=== PATIENT | female | born 1940 | race Caucasian/White ===

== ENCOUNTER 2017-01-30 11:05 | Inpatient (IN) | payer MEDICARE, OTHER ==
--- NOTE | 2017-01-30 11:13 | ED ---
Lower Extremity - History of Current Complaint Stated Complaint: FALL, RIGHT HIP FX - Allergies/Home Medications Allergies/Adverse Reactions: Allergies Allergy/AdvReac Type Severity Reaction Status Date / Time Aspirin Allergy Unknown Verified 01/30/17 11:19 Reaction Details Morphine Allergy Unknown Verified 01/30/17 11:19 Reaction Details Iodine AdvReac Unknown Verified 01/30/17 14:36 Reaction Details IVP AdvReac Unknown Uncoded 01/30/17 14:36 Reaction Details Home Medications: Home Medications Acetaminophen TAB* [Tylenol TAB*] 650 mg PO Q4H PRN 01/30/17 [History Confirmed 01/30/17] Carbidopa/Levodop 25/100 MG(*) [Sinemet 25/100 TAB(*)] 1 tab PO 0700,1300,199901/30/17 [History Confirmed 01/30/17] Cyanocobalamin TAB* [Vitamin B12 TAB*] 1,000 mcg PO DAILY 01/30/17 [History Confirmed 01/30/17] Fluticasone-Salmeterol 100-50* [Advair Diskus 100-50*] 1 puff INH BID 01/30/17 [ History Confirmed 01/30/17] Folic Acid TAB* [Folvite TAB*] 1 mg PO DAILY 01/30/17 [History Confirmed ] Furosemide TAB* [Lasix TAB*] 40 mg PO DAILY 01/30/17 [History Confirmed 01/30/17 ] Glycerin ADULT SUPP* 1 supp OR .SEE INSTRUCTIONS PRN 01/30/17 [History Confirmed 01/30/17] HYDROcodone/ACETAMIN 5-325 MG* [Henning 5-325 TAB*] 1 tab PO Q6H PRN 01/30/17 [ History Confirmed 01/30/17] Ipratropium HFA INHALER(NF) [Atrovent Hfa Inhaler(NF)] 2 puff INH 0700,1300, 199901/30/17 [History Confirmed 01/30/17] LORazepam TAB(*) [Ativan 0.5 MG TAB (*)] 0.5 mg PO Q8H PRN 01/30/17 [History Confirmed 01/30/17] Losartan TAB* [Cozaar TAB*] 25 mg PO DAILY 01/30/17 [History Confirmed 01/30/17] Magnesium Hydroxide LIQ* [Milk of Magnesia LIQ*] 30 ml PO BEDTIME PRN 01/30/17 [ History Confirmed 01/30/17] Melatonin 5 mg PO BEDTIME 01/30/17 [History Confirmed 01/30/17] Mirtazapine TAB* [Remeron TAB*] 7.5 mg PO BEDTIME 01/30/17 [History Confirmed ] Montelukast Sodium TAB* [Singulair TAB*] 10 mg PO BEDTIME 01/30/17 [History Confirmed 01/30/17] Multivitamins/Minerals TAB* [Thera M Plus TAB*] 1 tab PO DAILY 01/30/17 [ History Confirmed 01/30/17] Phenol-Glycerin [Chloraseptic Max Sore Thr] 2 spr PO Q4H PRN 01/30/17 [History Confirmed 01/30/17] Polyethylene Glycol 3350* [Miralax*] 17 gm PO DAILY 01/30/17 [History Confirmed 01/30/17] Pyridoxine HCl [Vitamin B-6] 25 mg PO DAILY 01/30/17 [History Confirmed 01/30/17 ] Senna TAB* [Senokot TAB*] 2 tab PO DAILY PRN 01/30/17 [History Confirmed ] Sertraline* [Zoloft*] 100 mg PO BID 01/30/17 [History Confirmed 01/30/17] Vitamin D CAP* [Drisdol CAP*] 50,000 units PO WEEKLY 01/30/17 [History Confirmed 01/30/17] cloNIDine TAB* [Catapres 0.1 MG TAB*] 0.1 mg PO 0700,1600 01/30/17 [History Confirmed 01/30/17] oxyCODONE TAB* [Roxycodone TAB 5 mg*] 5 mg PO Q4H PRN 01/30/17 [History Confirmed 01/30/17] predniSONE TAB* [Deltasone TAB*] 20 mg PO DAILY 01/30/17 [History Confirmed 02/05] Diagnostics - Laboratory Result Diagrams: 01/30/17 11:45 01/30/17 11:45 Lab Statement: Any lab studies that have been ordered have been reviewed, and results considered in the medical decision making process. Discharge - Discharge Plan
[2017-01-30] MEDS ORDERED: HYDROcodone/ACETAMIN 5-325 MG* 1 TAB PO ONE (11:34)
[2017-01-30 12:11] LABS: Hematocrit 35 % (35-47); Mean Corpuscular HGB Conc 32 g/dl (31-36); Mean Corpuscular Hemoglobin 25 pg (27-31); Mean Corpuscular Volume 80 fL (80-97); Mean Platelet Volume 7 um3 (7.4-10.4); Red Blood Count 4.37 10^6/ul (4.0-5.4); Red Cell Distribution Width 18 % (10.5-15); White Blood Count 12.8 10^3/ul (3.5-10.8)
--- NOTE | 2017-01-30 12:17 | RAD ---
HISTORY: Fall, head trauma COMPARISONS: None TECHNIQUE: Multiple contiguous axial CT scans were obtained of the head without intravenous contrast. FINDINGS: The study is limited by patient motion artifact. HEMORRHAGE/INFARCT: There is no hemorrhage or acute infarct. MASSES/SHIFT: There is no mass or shift. EXTRA-AXIAL SPACES: There are no extra-axial fluid collections. SULCI AND VENTRICLES: The sulci and ventricles are normal in size and position for the patient's stated age. CEREBRUM: There are no focal parenchymal abnormalities. BRAINSTEM: There are no focal parenchymal abnormalities. CEREBELLUM: There are no focal parenchymal abnormalities. VESSELS: The vessels are grossly normal. PARANASAL SINUSES: The paranasal sinuses are clear. ORBITS: The orbits are unremarkable. BONES AND SOFT TISSUE: No bone or soft tissue abnormalities are noted. OTHER: None IMPRESSION: NO ACUTE INTRACRANIAL PATHOLOGY.
--- NOTE | 2017-01-30 12:19 | RAD ---
HISTORY: Hip pain, dislocation COMPARISONS: None TECHNIQUE: Multiple contiguous axial CT images are obtained of the pelvis, with coronal and sagittal multiplanar reconstructions, without intravenous contrast administration. FINDINGS: BONE DENSITY: There is diffuse osteopenia. BONES: There is a nondisplaced fracture through the right sacral ala. This is best seen on axial image 19 The patient is status post right hip arthroplasty. Evaluation is limited by streak artifact from the hip prosthesis; however, there is no appreciable periprosthetic fracture. JOINTS: The patient is status post right hip arthroplasty. MUSCULATURE: Unremarkable ALIGNMENT: There is no dislocation. SOFT TISSUES: Unremarkable. OTHER FINDINGS: There is degenerative disc disease and osteoarthritis of the lower lumbar spine. IMPRESSION: 1. NONDISPLACED FRACTURE OF THE RIGHT SACRAL ALA. 2. OSTEOPENIA. 3. STATUS POST RIGHT HIP ARTHROPLASTY.
--- NOTE | 2017-01-30 12:24 | RAD ---
HISTORY: Fall, shoulder pain COMPARISONS: None TECHNIQUE: Multiple contiguous axial CT scans were obtained of the cervical spine without intravenous contrast, with coronal and sagittal multiplanar reformations. FINDINGS: BRAIN: The visualized brain is unremarkable CENTRAL CANAL: Evaluation of the central canal is limited on CT technique; however, there is no obvious canalicular mass or epidural hemorrhage. ALIGNMENT: The alignment is normal, without subluxation or dislocation. VERTEBRAL BODIES: There is diffuse osteopenia. There is an age-indeterminate compression deformity of T2. There is no osseous retropulsion. Otherwise, there is no displaced fracture. JOINTS: There is diffuse uncovertebral and facet osteoarthritis. MUSCULATURE: Unremarkable INTERVERTEBRAL DISCS: There is diffuse loss of intervertebral disc height. AXIAL IMAGES: C2-C3: There is no osseous neural foraminal narrowing or central canal stenosis. C3-C4: There is no osseous neural foraminal narrowing or central canal stenosis. C4-C5: There is no osseous neural foraminal narrowing or central canal stenosis. C5-C6: There is no osseous neural foraminal narrowing or central canal stenosis. C6-C7: There is no osseous neural foraminal narrowing or central canal stenosis. C7-T1: There is no osseous neural foraminal narrowing or central canal stenosis. SOFT TISSUES: The visualized soft tissues of the neck are unremarkable. The prevertebral fat stripe is preserved. OTHER: None. IMPRESSION: 1. OSTEOPENIA. 2. 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 3. DEGENERATIVE DISC DISEASE AND OSTEOARTHRITIS. 4. NO SIGNIFICANT OSSEOUS NEURAL FORAMINAL NARROWING OR CENTRAL CANAL STENOSIS.
[2017-01-30 12:26] LABS: BUN/Creatinine Ratio 17.9 (8-20); Calcium 9.8 mg/dL (8.6-10.3); EGFR African American 84.6 (>60); EGFR Non-African American 65.7 (>60); Globulin 3.3 g/dL (2-4); Potassium 3.6 mmol/L (3.5-5.0); Total Bilirubin 0.8 mg/dL (0.2-1.0); Total Protein 7.3 g/dL (6.4-8.9)
[2017-01-30 12:28] LABS: Troponin I 0.03 ng/mL (<0.04)
--- NOTE | 2017-01-30 12:31 | RAD ---
HISTORY: Fall, hip dislocation COMPARISONS: None TECHNIQUE: Multiple contiguous axial CT images are obtained of the right femur through the knee, with coronal and sagittal multiplanar reconstructions, without intravenous contrast administration. FINDINGS: BONE DENSITY: There is diffuse osteopenia. BONES: The patient is status post right hip arthroplasty. The patient is status post right knee arthroplasty. Evaluation is limited by metallic streak artifact. Within the limitations of the study, there is no appreciable periprosthetic fracture . JOINTS: The patient is status post right hip arthroplasty and right knee arthroplasty. MUSCULATURE: Unremarkable ALIGNMENT: There is no dislocation. SOFT TISSUES: Unremarkable. OTHER FINDINGS: None. IMPRESSION: 1. STATUS POST RIGHT HIP ARTHROPLASTY. STATUS POST RIGHT KNEE ARTHROPLASTY. 2. OSTEOPENIA.
--- NOTE | 2017-01-30 12:37 | ED ---
Lower Extremity - HPI Summary HPI Summary: Patient presents to the ED s/p fall last night. She is fall [facility] sn[facility]. She had a mechanical fall and states she hit the front of her head and landed onto her right hip. She notes to R hip pain. S/p arthroplasty. Hx of COPD and on 2L O2 during the day at home and 3L during the evening. She is morbidly obese. She admits to being in respiratory failure several times and has been hospitalized. She is unable to speak in full sentences but states this is her baseline. Denies blood thinners. She denies confusion, memory loss or visual changes after the fall. Denies LOC. She waited for about 30 minutes prior to someone finding her and receiving help off the floor. She arrives to the ED in respiratory distress on 3L and with and externally rotated hip. Good pedal and PT pulses. No lesions or discolorations. Denies numbness, tingling, color or temperature changes to the ipsilateral leg. Pain is 8/10 and constant. Allergy to morphine. Takes oxy at home. - History of Current Complaint Chief Complaint: EDGeneral Stated Complaint: FALL, RIGHT HIP FX Time Seen by Provider: 01/30/17 11:14 Hx Obtained From: Patient Mechanism Of Injury: Fall From A Standing Position Onset of Pain: Immediate Onset/Duration: Hours Severity Initially: Moderate Severity Currently: Moderate Pain Intensity: 8 Pain Scale Used: 0-10 Numeric Timing: Constant Location: Is Discrete @ - right lateral hip Associated Signs And Symptoms: Positive: Negative Aggravating Factor(s): Standing, Ambulation Alleviating Factor(s): Rest Able to Bear Weight: No - Risk Factors Gout Risk Factors: Negative DVT Risk Factors: Negative Septic Arthritis Risk Factor: Negative - Allergies/Home Medications Allergies/Adverse Reactions: Allergies Allergy/AdvReac Type Severity Reaction Status Date / Time Aspirin Allergy Unknown Verified 01/30/17 11:19 Reaction Details Morphine Allergy Unknown Verified 01/30/17 11:19 Reaction Details Iodine AdvReac Unknown Verified 01/30/17 14:36 Reaction Details IVP AdvReac Unknown Uncoded 01/30/17 14:36 Reaction Details Home Medications: Home Medications Acetaminophen TAB* [Tylenol TAB*] 650 mg PO Q4H PRN 01/30/17 [History Confirmed 01/30/17] Carbidopa/Levodop 25/100 MG(*) [Sinemet 25/100 TAB(*)] 1 tab PO 0700,1300,199901/30/17 [History Confirmed 01/30/17] Cyanocobalamin TAB* [Vitamin B12 TAB*] 1,000 mcg PO DAILY 01/30/17 [History Confirmed 01/30/17] Fluticasone-Salmeterol 100-50* [Advair Diskus 100-50*] 1 puff INH BID 01/30/17 [ History Confirmed 01/30/17] Folic Acid TAB* [Folvite TAB*] 1 mg PO DAILY 01/30/17 [History Confirmed ] Furosemide TAB* [Lasix TAB*] 40 mg PO DAILY 01/30/17 [History Confirmed 01/30/17 ] Glycerin ADULT SUPP* 1 supp [place] .SEE INSTRUCTIONS PRN 01/30/17 [History Confirmed 01/30/17] HYDROcodone/ACETAMIN 5-325 MG* [[place] 5-325 TAB*] 1 tab PO Q6H PRN 01/30/17 [ History Confirmed 01/30/17] Ipratropium HFA INHALER(NF) [Atrovent Hfa Inhaler(NF)] 2 puff INH 0700,1300, 199901/30/17 [History Confirmed 01/30/17] LORazepam TAB(*) [Ativan 0.5 MG TAB (*)] 0.5 mg PO Q8H PRN 01/30/17 [History Confirmed 01/30/17] Losartan TAB* [Cozaar TAB*] 25 mg PO DAILY 01/30/17 [History Confirmed 01/30/17] Magnesium Hydroxide LIQ* [Milk of Magnesia LIQ*] 30 ml PO BEDTIME PRN 01/30/17 [ History Confirmed 01/30/17] Melatonin 5 mg PO BEDTIME 01/30/17 [History Confirmed 01/30/17] Mirtazapine TAB* [Remeron TAB*] 7.5 mg PO BEDTIME 01/30/17 [History Confirmed ] Montelukast Sodium TAB* [Singulair TAB*] 10 mg PO BEDTIME 01/30/17 [History Confirmed 01/30/17] Multivitamins/Minerals TAB* [Thera M Plus TAB*] 1 tab PO DAILY 01/30/17 [ History Confirmed 01/30/17] Phenol-Glycerin [Chloraseptic Max Sore Thr] 2 spr PO Q4H PRN 01/30/17 [History Confirmed 01/30/17] Polyethylene Glycol 3350* [Miralax*] 17 gm PO DAILY 01/30/17 [History Confirmed 01/30/17] Pyridoxine HCl [Vitamin B-6] 25 mg PO DAILY 01/30/17 [History Confirmed 01/30/17 ] Senna TAB* [Senokot TAB*] 2 tab PO DAILY PRN 01/30/17 [History Confirmed ] Sertraline* [Zoloft*] 100 mg PO BID 01/30/17 [History Confirmed 01/30/17] Vitamin D CAP* [Drisdol CAP*] 50,000 units PO WEEKLY 01/30/17 [History Confirmed 01/30/17] cloNIDine TAB* [Catapres 0.1 MG TAB*] 0.1 mg PO 0700,1600 01/30/17 [History Confirmed 01/30/17] oxyCODONE TAB* [Roxycodone TAB 5 mg*] 5 mg PO Q4H PRN 01/30/17 [History Confirmed 01/30/17] predniSONE TAB* [Deltasone TAB*] 20 mg PO DAILY 01/30/17 [History Confirmed 02/05] PMH/Surg Hx/FS Hx/Imm Hx Previously Healthy: Yes - Surgical History Surgery Procedure, Year, and Place: bilateral knee replacement, rt total hip replacement - Immunization History Hx Pertussis Vaccination: No Immunizations Up to Date: Unable to Obtain/Confirm Infectious Disease History: Yes Infectious Disease History: Denies: Traveled Outside the [place] in Last 30 Days - Social History Occupation: Retired Lives: [facility] Alcohol Use: None Hx Substance Use: No Substance Use Type: Reports: None Hx Tobacco Use: Yes Smoking Status (MU): Unknown if Ever Smoked Review of Systems - ROS Summary Review of Systems Summary: Constitutional: The patient denies fever, ARAIZA. HEENT: Head: The patient denies headaches or dizziness. Eyes: The patient denies diplopia, blurry vision, eye pain, eye discharge, photophobia. Throat: The patient denies sore throats or hoarseness. Cardiovascular: The patient denies chest pain, palpitations, syncope, night cramps, or orthostasis. Respiratory: The patient endorses wheezing at baseline. SOB. Unable to speak in full sentences. Gastrointestinal: The patient denies odynophagia, dysphagia, hematemesis, melenemesis. Denies abdominal pain, nausea or vomiting. Denies constipation or diarrhea. Genitourinary: Patient denies dysuria, hematuria, or pyuria. Patient denies back pain. Denies vaginal discharge, vaginal bleeding. Denies other urinary symptoms. Endocrine: The patient denies polydipsia, polyuria, or polyphagia. Muscles: The patient denies myalgia, strain or weakness. Joints: The patient endorses R lateral hip pain. Neurologic: The patient denies headache, loss of consciousness, or seizure. Dermatologic: The patient denies lesions, ecchymosis or lacerations. Constitutional: Negative Negative: Fever, Chills, Fatigue Eyes: Negative Cardiovascular: Negative Positive: Shortness Of Breath Gastrointestinal: Negative Positive: no symptoms reported, see HPI Positive: Arthralgia - right hip pain Skin: Negative Neurological: Negative All Other Systems Reviewed And Are Negative: Yes Physical Exam - Summary Physical Exam Summary: Appearance: acute respiratory distress. obese. pain distress. Skin: Soft dry skin, no lesions. Nailbeds pink with no cyanosis or clubbing. No petechia noted. Eyes: SONIA, EOMI, Conjunctiva pink with no redness or exudates. Mouth: Dentition without lesions. Moist mucosa Neck: Full range of motion. Palpable thyroid. Trachea at midline. No lymphadenopathy. Pulm: Chest symmetrical expansion. No deformities on posterior chest wall. Lungs with wheezing and SOB. SOB at baseline. CV: No JVD. No deformities on anterior chest wall. Heart sounds-RRR, Normal S1 and single S2. No S3, S4, rubs, or murmurs. Carotids 2+ bilaterally without bruits. . exam not performed Abd: Soft, non-tender, bowel sounds in all 4 quadrants. No pain on deep palpation. Negative obturator. Negative maurer's. No tenderness at mcburney' s point. Musculoskeletal: Unable to perform flexion, abduction and adduction of the R hip d/t pain. Externally rotated on exam. Psych: Logical, coherent Triage Information Reviewed: Yes Vital Signs On Initial Exam: Initial Vitals Temp Pulse Resp BP Pulse Ox 98.9 F 91 24 176/108 91 01/30/17 11:14 01/30/17 11:14 01/30/17 11:14 01/30/17 11:14 01/30/17 11:14 Vital Signs Reviewed: Yes Appearance: Positive: Well-Nourished, Pain Distress Skin: Positive: Warm, Skin Color Reflects Adequate Perfusion Head/Face: Positive: Normal Head/Face Inspection Respiratory/Lung Sounds: Positive: Wheezes, Unable to speak in full sentences, Fatigue Cardiovascular: Positive: RRR, Pulses are Symmetrical in both Upper and Lower Extremities Neurological: Positive: Alert, Oriented to Person Place, Time, Speech Normal Psychiatric: Positive: Normal, Affect/Mood Appropriate AVPU Assessment: Alert - Yesi Coma Scale Coma Scale Total: 15 Diagnostics - Vital Signs Vital Signs Temp Pulse Resp BP Pulse Ox 01/30/17 12:18 102 19 90 01/30/17 12:15 149/74 01/30/17 11:56 103 91 01/30/17 11:14 98.9 F 91 24 176/108 91 - Laboratory Lab Results: Lab Results 01/30/17 01/30/17 01/30/17 Range/Units 11:45 11:45 11:45 WBC 12.8 H (3.5-10.8) 10^3/ul RBC 4.37 (4.0-5.4) 10^6/ul Hgb 11.0 L (12.0-16.0) g/dl Hct 35 (35-47) % MCV 80 (80-97) fL MCH 25 L (27-31) pg MCHC 32 (31-36) g/dl RDW 18 H (10.5-15) % Plt Count 182 (150-450) 10^3/ul MPV 7 L (7.4-10.4) um3 Neut % (Auto) 81.5 (38-83) % Lymph % (Auto) 10.0 L (25-47) % [place] % (Auto) 7.7 (1-9) % Eos % (Auto) 0.6 (0-6) % Baso % (Auto) 0.2 (0-2) % Absolute Neuts (auto) 10.5 H (1.5-7.7) 10^3/ul Absolute Lymphs (auto) 1.3 (1.0-4.8) 10^3/ul Absolute Monos (auto) 1.0 H (0-0.8) 10^3/ul Absolute Eos (auto) 0.1 (0-0.6) 10^3/ul Absolute Basos (auto) 0 (0-0.2) 10^3/ul Absolute Nucleated RBC 0.01 10^3/ul Nucleated RBC % 0.1 ESR Pending Sodium 142 (133-145) mmol/L Potassium 3.6 (3.5-5.0) mmol/L Chloride 96 L (101-111) mmol/L Carbon Dioxide 37 H (22-32) mmol/L Anion Gap 9 (2-11) mmol/L BUN 15 (6-24) mg/dL Creatinine 0.84 (0.51-0.95) mg/dL Est GFR ( Amer) 84.6 (>60) Est GFR (Non-Af Amer) 65.7 (>60) BUN/Creatinine Ratio 17.9 (8-20) Glucose 120 H (70-100) mg/dL Lactic Acid 2.7 H* (0.5-2.0) mmol/L Calcium 9.8 (8.6-10.3) mg/dL Magnesium 2.0 (1.9-2.7) mg/dL Total Bilirubin 0.80 (0.2-1.0) mg/dL AST 28 (13-39) U/L ALT 36 (7-52) U/L Alkaline Phosphatase 170 H (34-104) U/L Total Creatine Kinase 36 (10-223) U/L Myoglobin 37.0 (14.3-65.8) ng/mL Troponin I 0.03 (<0.04) ng/mL C-React Prot High Sens 67.76 mg/L Total Protein 7.3 (6.4-8.9) g/dL Albumin 4.0 (3.2-5.2) g/dL Globulin 3.3 (2-4) g/dL Albumin/Globulin Ratio 1.2 (1-3) TSH Pending Result Diagrams: 01/30/17 11:45 01/30/17 11:45 Lab Statement: Any lab studies that have been ordered have been reviewed, and results considered in the medical decision making process. Lower Extremity Course/Dx - Course Course Of Treatment: Patient presents to the ED with rigth hip pain s/p fracture. On arrival, she is SOB with wheezing and on 3L O2. Unable to speak in full sentences. Denies other pain. Notes to hitting her head. CT brain ordered and WNL. CT pelvis and lower extremity shows: IMPRESSION: 1. STATUS POST RIGHT HIP ARTHROPLASTY. STATUS POST RIGHT KNEE ARTHROPLASTY. 2. OSTEOPENIA. Chest xray obtained: IMPRESSION: PROMINENCE OF THE RIGHT PARA MEDIASTINAL SILHOUETTE WHICH MAY BE AN ARTIFACT. OF OBLIQUITY. RECOMMEND REPEAT PA AND LATERAL VIEWS OF THE CHEST. IMPRESSION: NO ACUTE INTRACRANIAL PATHOLOGY. IMPRESSION: 1. NONDISPLACED FRACTURE OF THE RIGHT SACRAL ALA. 2. OSTEOPENIA. 3. STATUS POST RIGHT HIP ARTHROPLASTY. Patient is not able to speak in full sentences on exam. She states this is her baseline. O2 - 3L . She endorses 8/10 pain in the right hip. Pulses +2 bilaterally. Cap refill < [address] Can who consulted. This is not a surgical case and patient should be touch down weight bearing. If admitted, ortho will seen in hospital today or tomorrow to assess injury. Advised inlet and outlet views should be obtained of the pelvis to assess for fracture and comparison. Conservative management. Patient is given oxy in the ED for pain control. Spoke with hospitalist Dr. Self who agrees to see patient and admit to their service. - Diagnoses Provider Diagnoses: Shortness of breath, Sacral fracture Discharge - Discharge Plan Condition: Fair Disposition: ADMITTED TO [facility]
[2017-01-30 12:54] LABS: Erythrocyte Sed Rate 32 mm/Hr (0-40)
--- NOTE | 2017-01-30 12:55 | RAD ---
HISTORY: Chest pain COMPARISONS: January 21, 2007 VIEWS: 1: frontal portable view of the chest at 12:20 PM. The patient is obliqued to the right. FINDINGS: LINES AND TUBES: None. CARDIOMEDIASTINAL SILHOUETTE: The aorta is tortuous. There is prominence of the right para mediastinal silhouette which may be an artifact of obliquity. PLEURA: The costophrenic angles are sharp. No pleural abnormalities are noted. LUNG PARENCHYMA: There is hyperinflation. ABDOMEN: The upper abdomen is clear. There is no subphrenic gas. BONES AND SOFT TISSUES: There is chronic posttraumatic deformity to the proximal right humerus. IMPRESSION: PROMINENCE OF THE RIGHT PARA MEDIASTINAL SILHOUETTE WHICH MAY BE AN ARTIFACT OF OBLIQUITY. RECOMMEND REPEAT PA AND LATERAL VIEWS OF THE CHEST
[2017-01-30] MEDS ORDERED: NS 0.9% 1000 ML* 1,000 ML IV ONE (12:57)
[2017-01-30 13:11] LABS: TSH (Thyroid Stimulating Horm) 9.05 mcIU/mL (0.34-5.60)
[2017-01-30] MEDS ORDERED: Ondansetron INJ* 2 MG/ML VIAL IV PRN (13:26)
[2017-01-30] MEDS ORDERED: HYDROcodone/ACETAMIN 5-325 MG* 1 TAB PO PRN (13:32)
[2017-01-30] MEDS ORDERED: traMADol TAB* 50 MG PO PRN (13:32)
[2017-01-30] MEDS ORDERED: fentaNYL* 50 MCG/ML 2 ML VIAL (100 MCG VIAL) IV SLOW PU PRN ×2 (13:33→14:50)
[2017-01-30] MEDS ORDERED: LORazepam TAB(*) 0.5 MG PO PRN (13:54)
[2017-01-30] MEDS ORDERED: Senna TAB PO PRN (13:54)
[2017-01-30] MEDS ORDERED: Enoxaparin(*) 40 MG/0.4 ML SYR SUBCUT SCH (14:00)
[2017-01-30] MEDS ORDERED: IPRATROPIUM INH SCH (14:02)
--- NOTE | 2017-01-30 14:33 | RAD ---
HISTORY: History of fracture CT dated COMPARISONS: January 30, 2017 VIEWS: 6, frontal, inlet, and outlet views of the pelvis, bilateral oblique views of the SI joints, and frontal and frog-leg views of the right hip FINDINGS: BONE DENSITY: There is diffuse osteopenia. BONES: The right sacral ala fracture noted on CT is not clearly visualized on the current examination. The patient is status post right hip arthroplasty. There is no hardware failure or osteolysis. JOINTS: There is osteoarthritis of the left hip and SI joints. The patient is status post right hip arthroplasty. ALIGNMENT: There is no dislocation. SOFT TISSUES: Unremarkable. OTHER FINDINGS: Degenerative changes are noted of the spine. A hernia repair mesh is noted IMPRESSION: 1. OSTEOPENIA. 2. STATUS POST RIGHT HIP ARTHROPLASTY. 3. THE RIGHT SACRAL ALA FRACTURE NOTED ON CT IS NOT CLEARLY VISUALIZED ON THE CURRENT EXAMINATION.
[2017-01-30] MEDS: Mometasone/Formoter 100/5 MDI INH SCH ×2 (14:44→20:16)
[2017-01-30] MEDS ORDERED: Albuterol/Ipratropium NEB.SOL* Albuterol 2.5 MG/Ipratropium 0.5 MG 3 ML INH ONE (15:34)
[2017-01-30] MEDS: cloNIDine TAB* 0.1 MG PO SCH (15:43)
[2017-01-30 16:05] LABS: FIO2 4
[2017-01-30 16:08] LABS: PCO2 Arterial 62 mmHg (35-45)
[2017-01-30] MEDS ORDERED: Piperacillin/Tazobac ADVAN(*) 3.375 GM in NS 0.9% 100 ML* 100 ML IVPB ONE (16:19)
--- NOTE | 2017-01-30 16:38 | PN ---
Hospitalist Progress Note Called to patient's bedside for concern for increased tachypnea, AMS, and wheezing. Patient given Duoneb treatments with no improvement. ABG showed concern for hypercapnea. O2 escalated but did not provide improvement for patient. Patient to ICU for vapotherm and closer monitoring. Reviewed CXR and given WBC count and recent CAP, will start Zosyn in addition to continuing BID Lovenox for suspicion of PE. Plan for CTA with premedication; patient to receive 50 mg of prednisone now and later this evening and additional dose in AM. POC and patient status reviewed with Dr. Self. Additional time spent was greater than 30 minutes.
[2017-01-30] MEDS ORDERED: Furosemide IV* 10 MG/ML VIAL (40 MG) IV ONE (16:45)
[2017-01-30] MEDS ORDERED: Zosyn per Pharmacy* NOTE FOLLOW UP SCH (17:00)
[2017-01-30] MEDS ORDERED: predniSONE TAB* 50 MG PO ONE ×2 (17:00→23:00)
[2017-01-30] MEDS: Acetaminophen TAB* 325 MG PO PRN (17:54)
--- NOTE | 2017-01-30 18:12 | RAD ---
HISTORY: Hypoxemia COMPARISONS: January 30 at 12:20 PM VIEWS: 1: frontal portable view of the chest at 5:21 PM. The patient is obliqued to the left. FINDINGS: LINES AND TUBES: None. CARDIOMEDIASTINAL SILHOUETTE: The cardiomediastinal silhouette is normal for portable technique. PLEURA: The costophrenic angles are sharp. No pleural abnormalities are noted. LUNG PARENCHYMA: There is hyperinflation. There is patchy alveolar opacification left lung base. ABDOMEN: The upper abdomen is clear. There is no subphrenic gas. BONES AND SOFT TISSUES: There is chronic post traumatic change to the right shoulder IMPRESSION: HYPERINFLATION. PATCHY LEFT BASILAR ATELECTASIS VERSUS CONSOLIDATION.
[2017-01-30] MEDS ORDERED: Ipratropium 0.5MG/2.5ML NEB* 0.5 MG/2.5 ML NEB.SOLN INH SCH (19:00)
[2017-01-30 19:02] LABS: Free T3 3.8 pg/mL (2.5-3.9)
[2017-01-30 19:05] LABS: Free T4 0.8 ng/dL (0.61-1.12)
[2017-01-30] MEDS: Sertraline* 100 MG TAB PO SCH (20:34)
[2017-01-30] MEDS: Mirtazapine TAB* 15 MG PO SCH (20:34)
[2017-01-30] MEDS: ZOSYN 3.375 GM Q8H per EXTENDED INFUSION IVPB SCH ×2 (20:35)
[2017-01-30] MEDS: Montelukast Sodium TAB* 10 MG PO SCH (20:35)
[2017-01-30] MEDS: Carbidopa/Levodop 25/100 MG TAB(*) PO SCH (20:43)
[2017-01-30] MEDS: CMC: Melatonin (NF) 3 MG TAB PO SCH (20:44)
[2017-01-30] MEDS ORDERED: Enoxaparin(*) 80 MG/0.8 ML SYR SUBCUT SCH (21:00)
--- NOTE | 2017-01-30 21:10 | HP ---
ATTENDING PHYSICIAN ADDENDUM NOW INCLUDED ON THIS REPORT CC: Dr. Mccabe * MEDICINE HISTORY AND PHYSICAL: DATE OF ADMISSION: 01/30/17 PROVIDER: Tania Dimas NP ATTENDING PHYSICIAN: Dr. Leti Self * (dictated by Tania Dimas NP) PRIMARY CARE PROVIDER: Dr. Mccabe at [facility] and Dr. Carbajal at [facility]. CONSULTING PHYSICIAN: Dr. Nito Can, Orthopedic Surgery. CHIEF COMPLAINT: Fall. HISTORY OF PRESENT ILLNESS: This is a 76-year-old female who presents to the ER today after a fall on 01/29/17 around 8 p.m. The patient was reportedly found on the ground by nursing facility staff after a mechanical fall in her bathroom. Per the patient, she states that she was trying to get up to use the bathroom and tripped over the entry to the bathroom where there is uneven sanya and fell down. She was not near to a bed alarm or the bathroom alarm that she could call for help, so she was lying on the floor for approximately 30 minutes before someone was able to come and help her. Per the nursing staff report that I got from the facility when I called, the patient has a history of unhooking herself from the bed alarm to ambulate without assistance. They also report that the patient was previously supposed to be nonweightbearing secondary to previous hip injury and has been noncompliant with nonweightbearing as well. Ms. Blackman is at the facility for rehab after a fall that she had in November of 2016. Per the notes from [facility], Ms. Blackman initially fractured her right hip and is status post ORIF at [facility] and was discharged at that time to a nursing facility for short-term rehab on 11/02/16. At the short-term rehab, she had another fall and then fractured her greater trochanter on the right side. She was then admitted to [facility] again on 12/02/16, evaluated and initially was planned to have another surgical repair. Progress notes state that the patient declined to have the surgical procedure and was treated conservatively. She was then discharged on 12/14/16 to [facility] for rehab. The patient was also noted to have been diagnosed with C. diff infection prior to admission to the nursing facility, but has completed therapy and has had no further complaints of diarrhea. Following the patient's fall, she states that she hit the front of her head and landed on her right hip, but denies any loss of consciousness. Again, she was down on the ground for about 30 minutes prior to being found and helped up from the floor into bed. The patient felt some mild pain last night, but this morning had significant pain and requested to come into the ER for further evaluation. Of note, she also states that she had pneumonia approximately 2 weeks ago and has completed her course of antibiotics. Here in the ER, Ms. Blackman had a CT of the brain, which showed no acute intracranial pathology as well as the CT of the cervical spine, which showed a previously existing and already known compression deformity of T2 as well as degenerative disk disease and osteoarthritis. The patient's pelvic CT, however , showed concern for a nondisplaced fracture of the right sacral ala. She is status post right hip arthroplasty. There is no appreciable periprosthetic fracture noted by the radiologist. CT of the right lower extremity shows status post right hip arthroplasty and status post right knee arthroplasty, again with no appreciable periprosthetic fracture noted. Concern was also had for the patient's respiratory status. The patient is on her chronic oxygen at 3 L, but she is notably tachypneic. The patient states she is frequently short of breath. PAST MEDICAL HISTORY: Includes: 1. COPD. The patient is oxygen and prednisone dependent. 2. Chronic respiratory failure, on chronic 2 L nasal cannula in the daytime and 3 L nasal cannula at nighttime. 3. Chronic systolic congestive heart failure. 4. Hypertension. 5. Obesity. 6. Parkinsonism. 7. Compression fracture of T11. 8. Depression. 9. Generalized anxiety disorder. 10. History of C. difficile infection. PAST SURGICAL HISTORY: Includes bilateral knee replacements, right total hip. These are per the ER notes. Per [facility] notes, the patient is status post ORIF of right hip fracture in October of 2016, cholecystectomy, and colostomy for ruptured bowel with subsequent reversal. ALLERGIES: Include, ASPIRIN, IODINE, and MORPHINE, though there is no known reaction listed for these allergies. FAMILY HISTORY: The patient is unable to recall. SOCIAL HISTORY: She denies tobacco, alcohol or illicit drug use. She is currently a resident of care home facility for acute rehab. Her daughter , Karuna Esposito is her surrogate decision maker and healthcare proxy in the event of emergency. REVIEW OF SYSTEMS: As per HPI. All those not mentioned are negative. Of note , the patient specifically denies any chest pain, feeling more short of breath than normal, fevers, chills, abdominal pain, nausea, vomiting, diarrhea, or dysuria. PHYSICAL EXAMINATION VITAL SIGNS: Temperature 98.9, heart rate 100, respiratory rate 24, blood pressure 138/73, and O2 saturation is 94% on 3 L nasal cannula. HEENT: Head is normocephalic. Pupils are equal, round, and reactive to light. Extraocular movements are intact. Oral mucosa appears moist, but is mildly tachy. NECK: Supple. The patient has full range of motion. No JVD noted. No lymphadenopathy appreciated. LUNGS: The patient has symmetrical chest expansion. Lung sounds are notable for scattered wheezing and rhonchi. The patient is tachypneic. CARDIAC: S1 and S2 heart sounds. Regular rate and rhythm. No murmurs, rubs, or gallops. No peripheral edema noted. ABDOMEN: Soft, nontender, and nondistended. Bowel sounds are normoactive and present times all 4 quadrants. There is no rebound tenderness or guarding. MUSCULOSKELETAL: Left lower extremity appears to have full range of motion. The patient has full range of motion in upper extremities. Right lower extremity is externally rotated, the patient is able to extend the extremity, but cannot abduct or adduct the right hip secondary to pain. NEURO: The patient has no focal deficits. Speech is clear. The patient is able to move all extremities. She is alert and oriented and responding appropriately. PSYCH: No appreciable depression, anxiety, or psychosis noted on exam. SKIN: Limited assessment, but appears warm, dry, and intact. LABORATORY DATA AND DIAGNOSTIC STUDIES: CBC: WBC 12.8, hemoglobin 11.0, hematocrit 35, platelet count 182. D-dimer is greater than 1050. CMP: Sodium 142, potassium 3.6, chloride 96, carbon dioxide 37, BUN 15, creatinine 0.84, glucose 120, lactic acid 2.7, calcium 9.8, magnesium 2.0. Total bilirubin 0.8, AST 28, ALT 36, alk phos is 70, total CK 36. Troponin 0.03. CRP 67.76. BNP 62. Albumin 4.0. TSH 9.05. The patient had an EKG that showed sinus tachycardia at a rate of 100 with some PACs. No significant ST or T-wave inversions noted. Old medical records were reviewed. ASSESSMENT AND PLAN: This is a 76-year-old female who presents today with concern for a sacral fracture following a fall as well as tachypnea and shortness of breath that is concerning for potential PE. She will be admitted under observation to the medicine floor. Plan is as follows: 1. Sacral fracture. The patient is already at [facility] for history of recent fracture of the right greater trochanter and was due for discharge from the facility on 02/10/17. She is now admitted with concern for a sacral fracture, which is likely nonsurgical. We do appreciate that Dr. Can will be in to evaluate and consult on this patient. In the meantime, we will make her weightbearing as tolerated and have physical therapy and occupational therapy see the patient. We have continued her current pain medications, which does include hydrocodone-APAP. Additionally, she has prn oxycodone, per her home med rec, and IV fentanyl for breakthrough pain uncontrolled by p.o. medication. 2. Tachypnea with shortness of breath. The patient states that this is her baseline and, given her history of chronic respiratory failure and chronic obstructive pulmonary disease with oxygen and prednisone dependency, this may be the case; however, I do suspect that the patient may have another acute process going on. She states that she recently had pneumonia, was treated for this. Given her elevated D-dimer, I would like to get a CTA; however, I am not sure of what the patient's allergic reaction is to IODINE. I will follow up on this and attempt to pre-medicate her to obtain CT imaging. In the meantime, plan to start her on b.i.d. Lovenox dose at 1 mg/kg to cover her and treat her for suspected pulmonary embolus given her risk factors. 3. Leukocytosis. I do suspect this is likely a leukemoid reaction to recent fall and stress. We will follow this up with a repeat CBC tomorrow. 4. Lactic acidosis. We will repeat this and follow the value to resolution, as this may be in response to the tourniquet, but it is unclear at this time. The patient is due for repeat lactate level. 5. Elevated TSH. The patient has no known history of hypothyroidism. I will add on a free T4 and free T3. In the event that the other values are within normal limits, I would recommend following up with these values as an outpatient in approximately 2 to 4 weeks. 6. History of hypertension. Continue current medication regimen of furosemide and clonidine. 7. History of chronic systolic heart failure. Continue home furosemide. 8. Chronic respiratory failure. The patient should continue home oxygen as prescribed. 9. History of chronic obstructive pulmonary disease. Continue chronic oxygen and chronic prednisone at 20 mg. 10. History of parkinsonism. Continue carbidopa and levodopa. 11. History of depression. Continue sertraline. The patient takes this b.i.d. at the facility. 12. History of generalized anxiety disorder. Continue lorazepam. 13. FEN. The patient is ordered a heart-healthy diet and she takes mechanical soft and pureed nectar thick liquids per [facility]. 14. DVT prophylaxis. Again, the patient is ordered b.i.d. Lovenox. She scores 13, at highest risk by the DVT Adult Prophylaxis Risk Assessment scale. 15. Code status. She is DNR/DNI, will accept trial BiPAP. TIME SPENT: Approximately 65 minutes was spent on this admission, more than half that time was spent [id number] with the patient obtaining history and physical, performing physical examination and reviewing the plan of care. Plan of care was also reviewed with my attending, Dr. Self, who is in agreement. TANIA DIMAS NP ADDENDUM: June Blackman is a 76-year-old female with history of oxygen dependent COPD who is currently staying at [facility] for rehabilitation after hip ORIF and recurrent falls. She had another mechanical fall and she presented to be the ED complaining of hip pain. Her pelvis CT showed nondisplaced fracture of the right sacral ala. Patient also appears to be in mild exacerbation of her COPD. Her D-dimer is above 1000 and she may require CT angiogram to evaluate and rule out PE. Unfortunately, she is allergic to IODINE that we will have to be addressed. For further details of patient's presentation and plan, please see history and physical dictated by Tania Dimas on 01/30/17, with which I agree. LETI SELF, [id number]/CPS #: [id number]/CPS #: [id number] [facility]ITAL[facility]arc[facility]
--- NOTE | 2017-01-30 21:27 | HP ---
HISTORY AND PHYSICAL:* ADDENDUM: June Blackman is a 76-year-old female with history of oxygen dependent COPD who is currently staying at [facility] for rehabilitation after hip ORIF and recurrent falls. She had another mechanical fall and she presented to be the ED complaining of hip pain. Her pelvis CT showed nondisplaced fracture of the right sacral ala. Patient also appears to be in mild exacerbation of her COPD. Her D-dimer is above 1000 and she may require CT angiogram to evaluate and rule out PE. Unfortunately, she is allergic to IODINE that we will have to be addressed. For further details of patient's presentation and plan, please see history and physical dictated by Vigrinia Stringer on 01/30/17, with which I agree. [id number]/[facility] #: [id number] MTDD
[2017-01-31] MEDS ORDERED: Iohexol 350* (CONTRAST) 500 ML MDV IV ONE ×2 (04:48→06:57)
[2017-01-31] MEDS: ZOSYN 3.375 GM Q8H per EXTENDED INFUSION IVPB SCH ×6 (04:51→20:26)
[2017-01-31] MEDS ORDERED: diPHENhydraMINE PO* 50 MG PO ONE (05:00)
[2017-01-31] MEDS ORDERED: predniSONE TAB* 20 MG PO ONE (05:00)
[2017-01-31 05:02] LABS: Hematocrit 35 % (35-47); Hemoglobin 11.3 g/dl (12.0-16.0); Mean Corpuscular HGB Conc 32 g/dl (31-36); Mean Corpuscular Hemoglobin 26 pg (27-31); Mean Corpuscular Volume 80 fL (80-97); Mean Platelet Volume 7 um3 (7.4-10.4); Red Blood Count 4.41 10^6/ul (4.0-5.4); Red Cell Distribution Width 18 % (10.5-15); White Blood Count 11.8 10^3/ul (3.5-10.8)
[2017-01-31] MEDS ORDERED: predniSONE TAB* 20 MG ONE (05:02)
[2017-01-31 05:16] LABS: BUN/Creatinine Ratio 17.4 (8-20); Calcium 9.2 mg/dL (8.6-10.3); EGFR African American 76.1 (>60); EGFR Non-African American 59.2 (>60); Potassium 4.2 mmol/L (3.5-5.0)
[2017-01-31] MEDS: Mometasone/Formoter 100/5 MDI INH SCH ×2 (07:24→19:30)
[2017-01-31] MEDS: Ipratropium 0.5MG/2.5ML NEB* 0.5 MG/2.5 ML NEB.SOLN INH SCH ×3 (07:25→19:30)
[2017-01-31 07:52] LABS: Urine Bacteria Absent (Absent); Urine Bilirubin Negative (Negative); Urine Glucose Negative (Negative); Urine Nitrite Negative (Negative)
[2017-01-31] MEDS: cloNIDine TAB* 0.1 MG PO SCH ×2 (08:15→16:47)
[2017-01-31] MEDS: Carbidopa/Levodop 25/100 MG TAB(*) PO SCH ×3 (08:15→20:14)
--- NOTE | 2017-01-31 08:25 | RAD ---
INDICATION: Chest pain. Short of breath. Evaluate for pulmonary embolus. COMPARISON: Tachypnea. Short of breath. Evaluate for pulmonary embolus TECHNIQUE: Axial source images were obtained from the thoracic inlet to the hemidiaphragms following administration of 73 cc Omnipaque 350. 2 injections were acquired for adequate opacification of pulmonary arteries CT angiographic technique was utilized. Coronal and sagittal reconstructed images were acquired. CHEST FINDINGS: Neck/thyroid: No gross abnormalities. Chest wall: There is marked osteopenia with advanced spondylitic change. There is a prominent kyphosis. There is a compression fracture at the thoracolumbar junction which is likely L1. The age is indeterminate. There is an old right posterior 11th rib fracture There is no supraclavicular, infraclavicular, or axillary lymphadenopathy. Lungs : There are consolidative changes with air bronchograms in the left lung base, right middle lobe, medial right lung base. Cardiomediastinal structures: There is no CT evidence of acute pulmonary embolic disease. The heart is normal in size. There is no pericardial effusion. There is no evidence of aortic aneurysm or dissection. There is no mediastinal or hilar adenopathy on the basis of size criteria the esophagus appears normal. Pleura : There are no pleural-based masses or significant effusions. Other: Limited views the upper abdomen demonstrate nonspecific hypodense splenic lesions. Splenic cyst. Low index of suspicion left adrenal nodularity. IMPRESSION: NO CT EVIDENCE OF ACUTE PULMONARY EMBOLIC DISEASE. BIBASILAR AIRSPACE DISEASE. THORACOLUMBAR COMPRESSION DEFORMITY. SPLENIC LESIONS
[2017-01-31] MEDS ORDERED: predniSONE TAB* 20 MG PO SCH (09:00)
[2017-01-31] MEDS: Enoxaparin(*) 40 MG/0.4 ML SYR SUBCUT SCH (09:49)
[2017-01-31] MEDS: Folic Acid TAB* 1 MG PO SCH (09:50)
[2017-01-31] MEDS: Polyethylene Glycol 3350* 17 GM PACKET PO SCH (09:50)
[2017-01-31] MEDS: Pyridoxine TAB* 50 MG PO SCH (09:50)
[2017-01-31] MEDS: Cyanocobalamin TAB* 500 MCG PO SCH (09:50)
[2017-01-31] MEDS: Furosemide TAB* 40 MG PO SCH (09:50)
[2017-01-31] MEDS: Losartan TAB* 25 MG PO SCH (09:50)
[2017-01-31] MEDS: Sertraline* 100 MG TAB PO SCH ×2 (09:50→20:15)
[2017-01-31] MEDS: Multivitamins/Minerals TAB PO SCH (09:50)
--- NOTE | 2017-01-31 11:14 | CONS ---
CC: PCP CONSULTATION REPORT: DATE OF CONSULT: 01/31/17. CONSULTING PHYSICIAN: Dr. Self. CHIEF COMPLAINT: Right hip and pelvis pain. HISTORY OF PRESENT ILLNESS: Briefly, June Blackman is a 76-year-old female, who lives at [facility]. She sustained a fall she says about a week ago, but per the note it says [facility]., she was found on the ground, after mechanical fall. She states she was trying to get u p to use the bathroom. She was lying down for at least 30 minutes per these notes. She had a recent hemiarthroplasty in [place] in October of this year. She then fell and had a greater trochanteric frac ture in November and she fell again now. She did have a recent history of C. diff infection, but reynoso s not had any further complaints of diarrhea. Per these notes she hit the front of her head and lande d on her right hip. She is currently in the ICU for suspected pneumonia versus a PE. She has had pn eumonia about 2 weeks ago and completed a course of antibiotics. In the ER, she was found to be tach ypneic and she was on her baseline at 3 L of oxygen, but required more. PAST MEDICAL HISTORY: 1. COPD. 2. Chronic respiratory failure on O2. 3. Systolic congestive heart failure. 4. Hypertension. 5. Obesity. 6. Parkinsonism. 7. Compression fracture at T11. 8. Depression. 9. Generalized anxiety disorder. 10. History of C. diff. 11. Recent history of pneumonia. PAST SURGICAL HISTORY: Significant for: 1. Bilateral knee replacement. 2. Right hemiarthroplasty in October. 3. Cholecystectomy. 4. Colostomy for ruptured bowel with subsequent reversal. ALLERGIES: To ASPIRIN, IODINE, MORPHINE. SOCIAL HISTORY: She denies tobacco, alcohol, or illicit use. She is a resident at [facility]. Her dageovanna hter is the surrogate decision maker and healthcare proxy. FAMILY HISTORY: The patient is unable to recall. REVIEW OF SYSTEMS: She complains of shortness of breath and right hip pain. Otherwise, remaining sys tems are negative. PHYSICAL EXAM: Vitals: Temperature of 98.8, heart rate of 88, respiratory rate is 24, O2 saturation is 96% on 100% oxygen, blood pressure is 150/83. She is in no acute distress. She speaks very quie tly, but she is alert and oriented. She is cooperative with the exam. Examination of the right leg demonstrates a well healed incision. There is no erythema, warmth, and no signs of infection. She i s able to dorsiflex, plantarflex her ankle. She is sensate to light touch about the first dorsal web space, medial, lateral, dorsal, and plantar foot. 2+ PT pulse. She has no pain on passive flexion, extension, internal and external rotation of the hip. She is tender posteriorly along the pelvis. S he is lying on her left side because this is more comfortable for her. LABORATORY DATA: White blood cell count of 11.8, hemoglobin 11.3, hematocrit of 35, platelet of 157. Sodium 141, potassium 4.2, chloride 98, carbon dioxide 38, BUN 16, creatinine 0.92, glucose of 153, calcium of 9.2. IMAGING: X-rays and CT scan were reviewed that demonstrate minimally displaced sacral buckle fractur e. There is no obvious fracture about the pubic rami. She does have a previous hip hemiarthroplasty that appears to be stable. There is a cerclage wire. There is evidence of either heterotrophic oss ification versus the previous greater trochanteric fracture, which is healed into the soft tissues. No evidence of failure. This is a bipolar hemiarthroplasty. ASSESSMENT AND PLAN: She has a nondisplaced sacral buckle fracture. This would be amenable to nonop erative treatment. At this point, I will make her weightbearing as tolerated with a walker. We will follow her closely. I told her it takes about 6 to 8 weeks for this to heal and she can follow up w ith me in clinic. Please call with any other questions. I appreciate the consult. [id number]/[facility] #: [id number]
--- NOTE | 2017-01-31 14:56 | PN ---
Subjective Date of Service: 01/31/17 Interval History: Events from yesterday reviewed Transferred to ICU with hypoxic respiratory failure On 100% 30L this AM eating breakfast without complaints Does note hip has some pain that is relieved with medications Wants to go home Objective Active Medications: Acetaminophen (Tylenol Tab*) 650 mg PO Q4H PRN PRN Reason: FEVER/PAIN Last Admin: 01/30/17 17:54 Dose: 650 mg Hydrocodone Bitart/Acetaminophen ([place] 5-325 Tab*) 2 tab PO Q4H PRN PRN Reason: PAIN - MODERATE TO SEVERE Hydrocodone Bitart/Acetaminophen ([place] 5-325 Tab*) 1 tab PO Q4H PRN PRN Reason: PAIN - MILD TO MODERATE Albuterol/Ipratropium (Duoneb (Albuterol 2.5 Mg/Ipratropium 0.5 Mg)) 1 neb INH Q2H PRN PRN Reason: SOB/WHEEZING Carbidopa/Levodopa (Sinemet 25/100 Tab(*)) 1 tab PO 0700,1300,2000 [facility] Last Admin: 01/31/17 13:50 Dose: 1 tab Clonidine HCl (Catapres Tab*) 0.1 mg PO 0700,1600 [facility] Last Admin: 01/31/17 08:15 Dose: 0.1 mg Cyanocobalamin (Vitamin B12 Tab*) 1,000 mcg PO DAILY [facility] Last Admin: 01/31/17 09:50 Dose: 1,000 mcg Enoxaparin Sodium (Lovenox(*)) 40 mg SUBCUT DAILY [facility] Last Admin: 01/31/17 09:49 Dose: 40 mg Fentanyl Citrate (Fentanyl*) 25 mcg IV SLOW PU Q4H PRN PRN Reason: PAIN - UNCONTROLLED Last Admin: 01/30/17 15:43 Dose: 25 mcg Folic Acid (Folvite Tab*) 1 mg PO DAILY [facility] Last Admin: 01/31/17 09:50 Dose: 1 mg Furosemide (Lasix Tab*) 40 mg PO DAILY [facility] Last Admin: 01/31/17 09:50 Dose: 40 mg Piperacillin Sod/Tazobactam (Sod 3.375 gm/ Sodium Chloride) 100 mls @ 25 mls/ hr IVPB Q8H [facility] Last Admin: 01/31/17 13:37 Dose: 25 mls/hr Ipratropium [place] (Atrovent 0.5 Mg Neb.Jennifer*) 0.5 mg INH RT.TID [facility] Last Admin: 01/31/17 11:45 Dose: 0.5 mg Lorazepam (Ativan Tab(*)) 0.5 mg PO Q8H PRN PRN Reason: ANXIETY Losartan Potassium (Cozaar Tab*) 25 mg PO DAILY [facility] Last Admin: 01/31/17 09:50 Dose: 25 mg Melatonin (Melatonin (Nf)) 3 mg PO BEDTIME [facility] Last Admin: 01/30/17 20:44 Dose: 3 mg Mirtazapine (Remeron Tab*) 7.5 mg PO BEDTIME [facility] Last Admin: 01/30/17 20:34 Dose: 7.5 mg Mometasone Furoate/Formoterol Fumar (Dulera 100/5 Mdi*) 2 puff INH BID [facility] Last Admin: 01/31/17 07:24 Dose: 2 puff Montelukast Sodium (Singulair Tab*) 10 mg PO BEDTIME [facility] Last Admin: 01/30/17 20:35 Dose: 10 mg Multivitamins/Minerals (Theragran/Minerals Tab*) 1 tab PO DAILY [facility] Last Admin: 01/31/17 09:50 Dose: 1 tab Ondansetron HCl (Zofran Inj*) 4 mg IV Q6H PRN PRN Reason: NAUSEA/VOMITING Oxycodone HCl (Roxycodone Tab*) 5 mg PO Q4H PRN PRN Reason: PAIN - BREAKTHROUGH Pharmacy Consult (Zosyn Per Pharmacy*) 1 note FOLLOW UP .ZOSYN PER PHARMACY [facility] Polyethylene Glycol/Electrolytes (Miralax*) 17 gm PO DAILY [facility] Last Admin: 01/31/17 09:50 Dose: 17 gm Prednisone (Deltasone Tab*) 20 mg PO DAILY [facility] Pyridoxine HCl (Vitamin B6 Tab*) 25 mg PO DAILY [facility] Last Admin: 01/31/17 09:50 Dose: 25 mg Senna (Senokot Tab*) 2 tab PO DAILY PRN PRN Reason: CONSTIPATION Sertraline HCl (Zoloft*) 100 mg PO BID [facility] Last Admin: 01/31/17 09:50 Dose: 100 mg Vital Signs 01/30/17 01/30/17 01/30/17 18:15 18:31 18:45 Temperature Pulse Rate 104 106 101 Respiratory 28 31 28 Rate Blood Pressure 157/86 124/89 158/80 (mmHg) O2 Sat by Pulse 94 93 91 Oximetry 01/30/17 01/30/17 01/30/17 19:00 19:15 19:30 Temperature Pulse Rate 98 101 99 Respiratory 18 27 31 Rate Blood Pressure 171/95 166/94 157/105 (mmHg) O2 Sat by Pulse 98 96 97 Oximetry 01/30/17 01/30/17 01/30/17 19:46 20:00 20:01 Temperature Pulse Rate 100 105 103 Respiratory 24 19 14 Rate Blood Pressure 152/84 174/114 (mmHg) O2 Sat by Pulse 97 98 96 Oximetry 01/30/17 01/30/17 01/30/17 20:15 20:20 20:32 Temperature 100.9 F 100.9 F 100.8 F Pulse Rate 100 101 90 Respiratory 28 28 25 Rate Blood Pressure 189/101 139/98 146/82 (mmHg) O2 Sat by Pulse 97 98 99 Oximetry 01/30/17 01/30/17 01/30/17 20:46 21:00 21:01 Temperature 100.8 F 100.8 F 100.8 F Pulse Rate 101 101 99 Respiratory 21 29 25 Rate Blood Pressure 104/84 147/99 (mmHg) O2 Sat by Pulse 99 96 90 Oximetry 01/30/17 01/30/17 01/30/17 21:16 21:30 21:45 Temperature 100.6 F 100.4 F 100.4 F Pulse Rate 94 89 91 Respiratory 19 19 18 Rate Blood Pressure 119/77 129/68 120/81 (mmHg) O2 Sat by Pulse 94 98 98 Oximetry 01/30/17 01/30/17 01/30/17 22:00 22:16 22:30 Temperature 100.0 F 99.9 F 99.7 F Pulse Rate 88 88 85 Respiratory 25 16 15 Rate Blood Pressure 120/82 118/76 115/63 (mmHg) O2 Sat by Pulse 98 96 98 Oximetry 01/30/17 01/30/17 01/30/17 22:45 23:00 23:15 Temperature 99.5 F 99.1 F 99.0 F Pulse Rate 79 79 80 Respiratory 25 23 28 Rate Blood Pressure 117/63 111/72 107/61 (mmHg) O2 Sat by Pulse 98 97 99 Oximetry 01/30/17 01/30/17 01/31/17 23:30 23:45 00:00 Temperature 98.8 F 98.6 F 98.4 F Pulse Rate 78 73 75 Respiratory 23 13 34 Rate Blood Pressure 105/70 109/61 111/71 (mmHg) O2 Sat by Pulse 98 98 98 Oximetry 01/31/17 01/31/17 01/31/17 00:15 00:17 00:30 Temperature 98.2 F 98.2 F 98.1 F Pulse Rate 75 75 75 Respiratory 15 24 21 Rate Blood Pressure 118/70 119/73 (mmHg) O2 Sat by Pulse 98 98 99 Oximetry 01/31/17 01/31/17 01/31/17 00:45 00:55 01:00 Temperature 97.9 F 97.9 F Pulse Rate 73 77 72 Respiratory 17 21 20 Rate Blood Pressure 112/75 120/77 (mmHg) O2 Sat by Pulse 98 99 98 Oximetry 01/31/17 01/31/17 01/31/17 01:15 01:30 01:46 Temperature 97.9 F 97.7 F 97.9 F Pulse Rate 76 77 85 Respiratory 22 15 21 Rate Blood Pressure 126/83 129/80 112/96 (mmHg) O2 Sat by Pulse 99 99 100 Oximetry 01/31/17 01/31/17 01/31/17 02:00 02:02 02:15 Temperature 98.1 F 98.1 F 98.2 F Pulse Rate 79 82 80 Respiratory 17 15 19 Rate Blood Pressure 121/70 133/91 (mmHg) O2 Sat by Pulse 98 98 100 Oximetry 01/31/17 01/31/17 01/31/17 02:30 02:45 03:00 Temperature 98.2 F 98.2 F 98.2 F Pulse Rate 78 80 78 Respiratory 13 14 14 Rate Blood Pressure 117/73 121/75 131/75 (mmHg) O2 Sat by Pulse 98 99 99 Oximetry 01/31/17 01/31/17 01/31/17 03:15 03:30 03:45 Temperature 98.2 F 98.2 F 98.2 F Pulse Rate 78 78 82 Respiratory 14 15 16 Rate Blood Pressure 132/79 126/75 133/83 (mmHg) O2 Sat by Pulse 99 99 99 Oximetry 01/31/17 01/31/17 01/31/17 04:00 04:15 04:30 Temperature 98.2 F 98.2 F 98.4 F Pulse Rate 81 80 79 Respiratory 28 17 13 Rate Blood Pressure 126/80 127/81 127/81 (mmHg) O2 Sat by Pulse 99 99 99 Oximetry 01/31/17 01/31/17 01/31/17 04:45 05:00 05:16 Temperature 98.4 F 98.4 F 98.6 F Pulse Rate 83 82 86 Respiratory 19 14 17 Rate Blood Pressure 149/91 140/92 121/89 (mmHg) O2 Sat by Pulse 99 99 99 Oximetry 01/31/17 01/31/17 01/31/17 05:30 05:46 06:00 Temperature 98.8 F 98.8 F 99.0 F Pulse Rate 87 95 88 Respiratory 21 26 19 Rate Blood Pressure 152/106 141/103 (mmHg) O2 Sat by Pulse 98 96 88 Oximetry 01/31/17 01/31/17 01/31/17 06:01 06:58 07:00 Temperature 99.0 F 99.0 F 99.0 F Pulse Rate 85 86 85 Respiratory 22 18 19 Rate Blood Pressure 131/88 115/75 119/71 (mmHg) O2 Sat by Pulse 93 97 99 Oximetry 01/31/17 01/31/17 01/31/17 07:15 07:29 07:30 Temperature 98.8 F 98.8 F Pulse Rate 85 88 87 Respiratory 19 16 22 Rate Blood Pressure 121/74 139/88 (mmHg) O2 Sat by Pulse 99 98 98 Oximetry 01/31/17 01/31/17 01/31/17 07:46 08:00 08:01 Temperature 99.0 F 98.8 F 98.8 F Pulse Rate 94 91 92 Respiratory 23 23 21 Rate Blood Pressure 132/99 138/101 (mmHg) O2 Sat by Pulse 95 89 88 Oximetry 01/31/17 01/31/17 01/31/17 08:16 08:31 08:46 Temperature 98.8 F 99.0 F 99.1 F Pulse Rate 88 86 95 Respiratory 24 21 17 Rate Blood Pressure 150/83 143/99 153/90 (mmHg) O2 Sat by Pulse 96 99 93 Oximetry 01/31/17 01/31/17 01/31/17 09:00 09:02 09:16 Temperature 99.1 F 99.3 F 99.3 F Pulse Rate 101 100 105 Respiratory 22 22 27 Rate Blood Pressure 126/49 186/123 (mmHg) O2 Sat by Pulse 98 99 94 Oximetry 01/31/17 01/31/17 01/31/17 09:32 09:46 10:00 Temperature 99.3 F 99.3 F 99.3 F Pulse Rate 107 108 106 Respiratory 24 21 24 Rate Blood Pressure 134/98 132/73 (mmHg) O2 Sat by Pulse 99 97 98 Oximetry 01/31/17 01/31/17 01/31/17 10:01 10:16 10:31 Temperature 99.3 F 99.3 F 99.3 F Pulse Rate 104 107 105 Respiratory 23 21 23 Rate Blood Pressure 111/76 110/78 141/105 (mmHg) O2 Sat by Pulse 98 100 84 Oximetry 01/31/17 01/31/17 01/31/17 10:46 11:00 11:01 Temperature 99.5 F 99.7 F 99.7 F Pulse Rate 110 106 277 Respiratory 29 23 26 Rate Blood Pressure 155/78 121/90 (mmHg) O2 Sat by Pulse 95 87 85 Oximetry 01/31/17 01/31/17 01/31/17 11:15 11:32 11:46 Temperature 99.7 F 99.5 F 99.5 F Pulse Rate 99 96 99 Respiratory 21 18 24 Rate Blood Pressure 134/79 122/81 149/117 (mmHg) O2 Sat by Pulse 93 100 96 Oximetry 01/31/17 01/31/17 01/31/17 12:00 12:01 12:15 Temperature 99.5 F 99.5 F 99.5 F Pulse Rate 99 97 Respiratory 24 21 20 Rate Blood Pressure 130/87 141/81 (mmHg) O2 Sat by Pulse 97 98 Oximetry 01/31/17 01/31/17 01/31/17 12:31 12:47 13:00 Temperature 99.5 F 99.5 F 99.5 F Pulse Rate 97 Respiratory 17 17 16 Rate Blood Pressure 127/84 164/75 (mmHg) O2 Sat by Pulse 100 Oximetry 01/31/17 01/31/17 13:01 13:15 Temperature 99.5 F 99.5 F Pulse Rate 99 95 Respiratory 25 20 Rate Blood Pressure 145/101 127/78 (mmHg) O2 Sat by Pulse 100 99 Oximetry Oxygen Devices in Use Now: High Flow Nasal Cannula - 100% 30L titrated down to 10l [place] by afternoon Appearance: NAD Eyes: No Scleral Icterus, PERRLA Ears/Nose/Mouth/Throat: NL Teeth, Lips, Gums, Clear Oropharnyx, Mucous Membranes Moist Neck: NL Appearance and Movements; NL JVP, Trachea Midline Respiratory: Symmetrical Chest Expansion and Respiratory Effort, - - rales b/l bases with diffuse wheeze Cardiovascular: RRR Abdominal: NL Sounds; No Tenderness; No Distention, No Hepatosplenomegaly Lymphatic: No Cervical Adenopathy Extremities: No Edema Skin: No Rash or Ulcers, No Nodules or Sclerosis Neurological: Alert and Oriented x 3 Result Diagrams: 01/31/17 04:48 01/31/17 04:48 Additional Lab and Data: Lab Results 01/30/17 01/30/17 01/30/17 Range/Units 11:45 11:45 11:45 WBC 12.8 H (3.5-10.8) 10^3/ul RBC 4.37 (4.0-5.4) 10^6/ul Hgb 11.0 L (12.0-16.0) g/dl Hct 35 (35-47) % MCV 80 (80-97) fL MCH 25 L (27-31) pg MCHC 32 (31-36) g/dl RDW 18 H (10.5-15) % Plt Count 182 (150-450) 10^3/ul MPV 7 L (7.4-10.4) um3 Neut % (Auto) 81.5 (38-83) % Lymph % (Auto) 10.0 L (25-47) % [place] % (Auto) 7.7 (1-9) % Eos % (Auto) 0.6 (0-6) % Baso % (Auto) 0.2 (0-2) % Absolute Neuts (auto) 10.5 H (1.5-7.7) 10^3/ul Absolute Lymphs (auto) 1.3 (1.0-4.8) 10^3/ul Absolute Monos (auto) 1.0 H (0-0.8) 10^3/ul Absolute Eos (auto) 0.1 (0-0.6) 10^3/ul Absolute Basos (auto) 0 (0-0.2) 10^3/ul Absolute Nucleated RBC 0.01 10^3/ul Nucleated RBC % 0.1 ESR Pending Sodium 142 (133-145) mmol/L Potassium 3.6 (3.5-5.0) mmol/L Chloride 96 L (101-111) mmol/L Carbon Dioxide 37 H (22-32) mmol/L Anion Gap 9 (2-11) mmol/L BUN 15 (6-24) mg/dL Creatinine 0.84 (0.51-0.95) mg/dL Est GFR ( Amer) 84.6 (>60) Est GFR (Non-Af Amer) 65.7 (>60) BUN/Creatinine Ratio 17.9 (8-20) Glucose 120 H (70-100) mg/dL Lactic Acid 2.7 H* (0.5-2.0) mmol/L Calcium 9.8 (8.6-10.3) mg/dL Magnesium 2.0 (1.9-2.7) mg/dL Total Bilirubin 0.80 (0.2-1.0) mg/dL AST 28 (13-39) U/L ALT 36 (7-52) U/L Alkaline Phosphatase 170 H (34-104) U/L Total Creatine Kinase 36 (10-223) U/L Myoglobin 37.0 (14.3-65.8) ng/mL Troponin I 0.03 (<0.04) ng/mL C-React Prot High Sens 67.76 mg/L Total Protein 7.3 (6.4-8.9) g/dL Albumin 4.0 (3.2-5.2) g/dL Globulin 3.3 (2-4) g/dL Albumin/Globulin Ratio 1.2 (1-3) TSH Pending Microbiology and Other Data: Microbiology 01/30/17 22:25 Nasal Screen MRSA (PCR)(CHANG) - Final Nasal Mrsa Negative Assess/Plan/Problems-Billing Assessment: 76 yo F h/o advanced COPD on O2 and chronic steroids, chf with recent PNA p/w fall found with sacral ala fracture and hypoxic respiratory failure in setting of PNA - Patient Problems (1) Acute on chronic respiratory failure with hypoxemia Comment: Secondaryto PNA with underlying COPD Vapotherm weaned off today. If remains stable may transfer to 4N c/w zosyn today (2) Parkinson disease Comment: sinemet (3) Sacral insufficiency fracture with routine healing Comment: WBAT (4) COPD (chronic obstructive pulmonary disease) Comment: prednisone 20 dulera, sinulair (5) HTN (hypertension) Comment: clonidine, losartan lasix (6) DVT prophylaxis Comment: Lovenox
[2017-01-31] MEDS ORDERED: NS 0.9% 100 ML* 100 ML ONE (20:07)
[2017-01-31] MEDS: Montelukast Sodium TAB* 10 MG PO SCH (20:14)
[2017-01-31] MEDS: Mirtazapine TAB* 15 MG PO SCH (20:14)
[2017-01-31] MEDS: CMC: Melatonin (NF) 3 MG TAB PO SCH (20:14)
[2017-01-31] MEDS: HYDROcodone/ACETAMIN 5-325 MG* 1 TAB PO PRN (20:26)
[2017-02-01] MEDS: ZOSYN 3.375 GM Q8H per EXTENDED INFUSION IVPB SCH ×6 (04:22→21:04)
[2017-02-01] MEDS: HYDROcodone/ACETAMIN 5-325 MG* 1 TAB PO PRN ×4 (04:22→18:22)
[2017-02-01] MEDS: Carbidopa/Levodop 25/100 MG TAB(*) PO SCH ×3 (06:16→20:22)
[2017-02-01] MEDS: cloNIDine TAB* 0.1 MG PO SCH ×2 (06:16→15:52)
[2017-02-01] MEDS: oxyCODONE TAB* 5 MG TAB PO PRN ×3 (07:55→22:46)
[2017-02-01] MEDS: Mometasone/Formoter 100/5 MDI INH SCH ×2 (08:18→20:42)
[2017-02-01] MEDS: Ipratropium 0.5MG/2.5ML NEB* 0.5 MG/2.5 ML NEB.SOLN INH SCH ×3 (08:18→20:42)
[2017-02-01] MEDS: Multivitamins/Minerals TAB PO SCH (09:35)
[2017-02-01] MEDS: Sertraline* 100 MG TAB PO SCH ×2 (09:35→20:22)
[2017-02-01] MEDS: Losartan TAB* 25 MG PO SCH (09:35)
[2017-02-01] MEDS: Cyanocobalamin TAB* 500 MCG PO SCH (09:35)
[2017-02-01] MEDS: Folic Acid TAB* 1 MG PO SCH (09:36)
[2017-02-01] MEDS: Furosemide TAB* 40 MG PO SCH (09:36)
[2017-02-01] MEDS: predniSONE TAB* 20 MG PO SCH (09:36)
[2017-02-01] MEDS: Enoxaparin(*) 40 MG/0.4 ML SYR SUBCUT SCH (09:36)
[2017-02-01] MEDS: Pyridoxine TAB* 50 MG PO SCH (10:47)
[2017-02-01] MEDS: Polyethylene Glycol 3350* 17 GM PACKET PO SCH (11:02)
--- NOTE | 2017-02-01 11:24 | PN ---
Progress Note - Progress Note Date of Service: 02/01/17 SOAP: Subjective: []Patient seen at bedside. Pain of her right posterior pelvic region is reported as 10/10 with no radiation. She has no numbness or tingling of bilateral lower extremities. No urinary or bowel incontinence. Objective: [] Vital Signs Temp 98.8 F 02/01/17 10:00 Pulse 91 02/01/17 11:01 Resp 23 02/01/17 11:01 BP 107/57 02/01/17 11:01 Pulse Ox 90 02/01/17 11:01 Intake & Output 01/31/17 02/01/17 02/01/17 18:59 06:59 18:59 Intake Total 1699 222 160 Output Total 1100 Balance 1699 -878 160 Weight 183 lb 10.321 oz Intake: IV Fluids 239 222 ZOsyn 239 222 Oral 1460 160 Output: Urine 250 Watts 850 Other: # Bowel Movements 1 Estimated Stool Amount Medium Laboratory Last Values WBC 11.8 10^3/ul (3.5-10.8) H 01/31/17 04:48 RBC 4.41 10^6/ul (4.0-5.4) 01/31/17 04:48 Hgb 11.3 g/dl (12.0-16.0) L 01/31/17 04:48 Hct 35 % (35-47) 01/31/17 04:48 MCV 80 fL (80-97) 01/31/17 04:48 MCH 26 pg (27-31) L 01/31/17 04:48 MCHC 32 g/dl (31-36) 01/31/17 04:48 RDW 18 % (10.5-15) H 01/31/17 04:48 Plt Count 157 10^3/ul (150-450) 01/31/17 04:48 MPV 7 um3 (7.4-10.4) L 01/31/17 04:48 Neut % (Auto) 92.1 % (38-83) H 01/31/17 04:48 Lymph % (Auto) 5.3 % (25-47) L 01/31/17 04:48 [place] % (Auto) 2.0 % (1-9) 01/31/17 04:48 Eos % (Auto) 0 % (0-6) 01/31/17 04:48 Baso % (Auto) 0.6 % (0-2) 01/31/17 04:48 Absolute Neuts (auto) 10.9 10^3/ul (1.5-7.7) H 01/31/17 04:48 Absolute Lymphs (auto) 0.6 10^3/ul (1.0-4.8) L 01/31/17 04:48 Absolute Monos (auto) 0.2 10^3/ul (0-0.8) 01/31/17 04:48 Absolute Eos (auto) 0 10^3/ul (0-0.6) 01/31/17 04:48 Absolute Basos (auto) 0.1 10^3/ul (0-0.2) 01/31/17 04:48 Absolute Nucleated RBC 0 10^3/ul 01/31/17 04:48 Nucleated RBC % 0 01/31/17 04:48 ESR 32 mm/Hr (0-40) 01/30/17 11:45 D-Dimer, Quantitative > 1050 ng/mL (Less Than 230) H 01/30/17 11:45 Patient Temperature Not Reportable 01/30/17 16:00 ABG pH 7.40 (7.35-7.45) 01/30/17 16:00 ABG pH (Temp Correct) Not Reportable 01/30/17 16:00 ABG pCO2 62 mmHg (35-45) H 01/30/17 16:00 ABG pCO2 (Temp Corrct Not Reportable 01/30/17 16:00 ABG pO2 164 mmHg (80-100) H 01/30/17 16:00 ABG pO2 (Temp Correct Not Reportable 01/30/17 16:00 ABG HCO3 33.9 mmol/L (19-31) H 01/30/17 16:00 ABG O2 Saturation 99.9 % (95-98) H 01/30/17 16:00 ABG Base Excess 11.5 (-2.0-2.0) H 01/30/17 16:00 Respiration Rate Not Reportable 01/30/17 16:00 O2 Delivery Device nasal cannula 01/30/17 16:00 Ventilator Type Not Reportable 01/30/17 16:00 Vent Mode Not Reportable 01/30/17 16:00 FiO2 4 01/30/17 16:00 Inspiratory Time Not Reportable 01/30/17 16:00 PEEP Not Reportable 01/30/17 16:00 Pressure Support Not Reportable 01/30/17 16:00 Pressure Control Not Reportable 01/30/17 16:00 EPAP Not Reportable 01/30/17 16:00 IPAP Not Reportable 01/30/17 16:00 BiPAP Not Reportable 01/30/17 16:00 Sodium 141 mmol/L (133-145) 01/31/17 04:48 Potassium 4.2 mmol/L (3.5-5.0) 01/31/17 04:48 Chloride 98 mmol/L (101-111) L 01/31/17 04:48 Carbon Dioxide 38 mmol/L (22-32) H 01/31/17 04:48 Anion Gap 5 mmol/L (2-11) 01/31/17 04:48 BUN 16 mg/dL (6-24) 01/31/17 04:48 Creatinine 0.92 mg/dL (0.51-0.95) 01/31/17 04:48 Est GFR ( Amer) 76.1 (>60) 01/31/17 04:48 Est GFR (Non-Af Amer) 59.2 (>60) 01/31/17 04:48 BUN/Creatinine Ratio 17.4 (8-20) 01/31/17 04:48 Glucose 153 mg/dL (70-100) H 01/31/17 04:48 Lactic Acid 1.4 mmol/L (0.5-2.0) 01/30/17 17:10 Calcium 9.2 mg/dL (8.6-10.3) 01/31/17 04:48 Magnesium 2.0 mg/dL (1.9-2.7) 01/30/17 11:45 Total Bilirubin 0.80 mg/dL (0.2-1.0) 01/30/17 11:45 AST 28 U/L (13-39) 01/30/17 11:45 ALT 36 U/L (7-52) 01/30/17 11:45 Alkaline Phosphatase 170 U/L (34-104) H 01/30/17 11:45 Total Creatine Kinase 30 U/L (10-223) 01/30/17 17:10 Myoglobin 37.0 ng/mL (14.3-65.8) 01/30/17 11:45 Troponin I 0.03 ng/mL (<0.04) 01/30/17 11:45 C-React Prot High Sens 67.76 mg/L 01/30/17 11:45 B-Natriuretic Peptide 62 pg/mL (-100) 01/30/17 11:45 Total Protein 7.3 g/dL (6.4-8.9) 01/30/17 11:45 Albumin 4.0 g/dL (3.2-5.2) 01/30/17 11:45 Globulin 3.3 g/dL (2-4) 01/30/17 11:45 Albumin/Globulin Ratio 1.2 (1-3) 01/30/17 11:45 TSH 9.05 mcIU/mL (0.34-5.60) H 01/30/17 11:45 Free T4 0.80 ng/dL (0.61-1.12) 01/30/17 11:45 Free T3 3.80 pg/mL (2.5-3.9) 01/30/17 11:45 Urine Color Yellow 01/31/17 07:00 Urine Appearance Clear 01/31/17 07:00 Urine pH 6.0 (5-9) 01/31/17 07:00 Ur Specific [place] > 1.060 (1.010-1.030) H 01/31/17 07:00 Urine Protein 1+(30 mg/dl) (Negative) H 01/31/17 07:00 Urine Ketones Negative (Negative) 01/31/17 07:00 Urine Blood 3+ (Negative) H 01/31/17 07:00 Urine Nitrate Negative (Negative) 01/31/17 07:00 Urine Bilirubin Negative (Negative) 01/31/17 07:00 Urine Urobilinogen Negative (Negative) 01/31/17 07:00 Ur Leukocyte Esterase Negative (Negative) 01/31/17 07:00 Urine WBC (Auto) Trace(0-5/hpf) (Absent) 01/31/17 07:00 Urine RBC (Auto) 3+(>10/hpf) (Absent) H 01/31/17 07:00 Urine Bacteria Absent (Absent) 01/31/17 07:00 Urine Glucose Negative (Negative) 01/31/17 07:00 Urine Ascorbic Acid * (Negative) H 01/31/17 07:00 General: Calm, cooperative. Lying in bed in no acute distress. Patient is using her incentive spirometer currently. MSK: Tenderness to palpation over right sacral/ pelvic region. No tenderness past midline. Dorsiflexion/plantarflexion intact bilaterally. Pain of right sacral region with bilateral hip flexion. Neuro: Sensation intact to light touch of bilateral lower extremities throughout including dorsal 1st webspace, dorsal, plantar, medial and lateral surfaces of feet. Vasc: Brisk capillary refill of toes bilaterally. 2+ dp/pt pulses bilaterally Integumentary: No erythema, ecchymosis, laceration or skin breakdown noted over the above noted area of tenderness Assessment: [] nondisplaced right sacral ala fracture Plan: []Nonoperative, WBAT with walker, F/U with Dr. Can in office. Will continue to follow inpatient until d/c
[2017-02-01] MEDS: Albuterol/Ipratropium NEB.SOL* Albuterol 2.5 MG/Ipratropium 0.5 MG 3 ML INH PRN (15:58)
[2017-02-01] MEDS ORDERED: Morphine INJ* 2 MG/ML 1 ML SYRINGE (TWO MG - NEW SYRINGE VERSION) IV ONE (16:40)
[2017-02-01] MEDS ORDERED: traMADol TAB* 50 MG PO ONE (16:54)
[2017-02-01] MEDS: Lidocaine PATCH 5%* 1 PATCH TRANSDERM SCH ×2 (17:03→18:23)
--- NOTE | 2017-02-01 17:17 | PN ---
Subjective Date of Service: 02/01/17 Interval History: Seen and examined this AM Complaining of headache not relieved by norco Denies pain in hip this AM Titrated down to 5L o2 this am Objective Active Medications: Acetaminophen (Tylenol Tab*) 650 mg PO Q4H PRN PRN Reason: FEVER/PAIN Last Admin: 01/30/17 17:54 Dose: 650 mg Hydrocodone Bitart/Acetaminophen ([place] 5-325 Tab*) 2 tab PO Q4H PRN PRN Reason: PAIN - MODERATE TO SEVERE Last Admin: 02/01/17 13:34 Dose: 2 tab Hydrocodone Bitart/Acetaminophen ([place] 5-325 Tab*) 1 tab PO Q4H PRN PRN Reason: PAIN - MILD TO MODERATE Albuterol/Ipratropium (Duoneb (Albuterol 2.5 Mg/Ipratropium 0.5 Mg)) 1 neb INH Q2H PRN PRN Reason: SOB/WHEEZING Last Admin: 02/01/17 15:58 Dose: 1 neb Carbidopa/Levodopa (Sinemet 25/100 Tab(*)) 1 tab PO 0700,1300,2000 [facility] Last Admin: 02/01/17 12:29 Dose: 1 tab Clonidine HCl (Catapres Tab*) 0.1 mg PO 0700,1600 [facility] Last Admin: 02/01/17 15:52 Dose: 0.1 mg Cyanocobalamin (Vitamin B12 Tab*) 1,000 mcg PO DAILY [facility] Last Admin: 02/01/17 09:35 Dose: 1,000 mcg Enoxaparin Sodium (Lovenox(*)) 40 mg SUBCUT DAILY [facility] Last Admin: 02/01/17 09:36 Dose: 40 mg Folic Acid (Folvite Tab*) 1 mg PO DAILY [facility] Last Admin: 02/01/17 09:36 Dose: 1 mg Furosemide (Lasix Tab*) 40 mg PO DAILY [facility] Last Admin: 02/01/17 09:36 Dose: 40 mg Piperacillin Sod/Tazobactam (Sod 3.375 gm/ Sodium Chloride) 100 mls @ 25 mls/ hr IVPB Q8H [facility] Last Admin: 02/01/17 12:29 Dose: 25 mls/hr Ipratropium [place] (Atrovent 0.5 Mg Neb.Jennifer*) 0.5 mg INH RT.TID [facility] Last Admin: 02/01/17 12:50 Dose: 0.5 mg Lidocaine (Lidoderm 5% Patch*) 1 patch TRANSDERM 0900 [facility] Last Admin: 02/01/17 17:03 Dose: 1 patch Lorazepam (Ativan Tab(*)) 0.5 mg PO Q8H PRN PRN Reason: ANXIETY Losartan Potassium (Cozaar Tab*) 25 mg PO DAILY [facility] Last Admin: 02/01/17 09:35 Dose: 25 mg Melatonin (Melatonin (Nf)) 3 mg PO BEDTIME [facility] Last Admin: 01/31/17 20:14 Dose: 3 mg Mirtazapine (Remeron Tab*) 7.5 mg PO BEDTIME [facility] Last Admin: 01/31/17 20:14 Dose: 7.5 mg Mometasone Furoate/Formoterol Fumar (Dulera 100/5 Mdi*) 2 puff INH BID [facility] Last Admin: 02/01/17 08:18 Dose: 2 puff Montelukast Sodium (Singulair Tab*) 10 mg PO BEDTIME [facility] Last Admin: 01/31/17 20:14 Dose: 10 mg Multivitamins/Minerals (Theragran/Minerals Tab*) 1 tab PO DAILY [facility] Last Admin: 02/01/17 09:35 Dose: 1 tab Ondansetron HCl (Zofran Inj*) 4 mg IV Q6H PRN PRN Reason: NAUSEA/VOMITING Oxycodone HCl (Roxycodone Tab*) 5 mg PO Q4H PRN PRN Reason: PAIN - BREAKTHROUGH Last Admin: 02/01/17 14:39 Dose: 5 mg Pharmacy Consult (Zosyn Per Pharmacy*) 1 note FOLLOW UP .ZOSYN PER PHARMACY [facility] Pharmacy Profile Note (Lidocaine Patch Remove*) 1 note N/A 2100 [facility] Polyethylene Glycol/Electrolytes (Miralax*) 17 gm PO DAILY [facility] Last Admin: 02/01/17 11:02 Dose: Not Given Prednisone (Deltasone Tab*) 20 mg PO DAILY [facility] Last Admin: 02/01/17 09:36 Dose: 20 mg Pyridoxine HCl (Vitamin B6 Tab*) 25 mg PO DAILY [facility] Last Admin: 02/01/17 10:47 Dose: 25 mg Senna (Senokot Tab*) 2 tab PO DAILY PRN PRN Reason: CONSTIPATION Sertraline HCl (Zoloft*) 100 mg PO BID [facility] Last Admin: 02/01/17 09:35 Dose: 100 mg Vital Signs 01/31/17 01/31/17 01/31/17 17:19 18:00 18:29 Temperature 99.9 F 99.9 F Pulse Rate 116 128 Respiratory 26 25 Rate Blood Pressure 120/60 (mmHg) O2 Sat by Pulse 99 96 91 Oximetry 01/31/17 01/31/17 01/31/17 19:00 19:31 19:34 Temperature 99.9 F Pulse Rate 104 98 Respiratory 21 23 Rate Blood Pressure 140/98 (mmHg) O2 Sat by Pulse 97 100 96 Oximetry 01/31/17 01/31/17 01/31/17 20:00 21:00 21:01 Temperature 99.9 F 99.9 F 99.9 F Pulse Rate 103 95 97 Respiratory 32 16 17 Rate Blood Pressure 162/129 123/76 (mmHg) O2 Sat by Pulse 100 99 99 Oximetry 01/31/17 01/31/17 01/31/17 22:00 22:04 23:00 Temperature 99.0 F 98.4 F Pulse Rate 88 Respiratory 17 19 Rate Blood Pressure (mmHg) O2 Sat by Pulse 100 Oximetry 01/31/17 01/31/17 02/01/17 23:32 23:38 00:00 Temperature 98.6 F 98.6 F Pulse Rate 94 88 Respiratory 27 21 20 Rate Blood Pressure 114/60 96/54 (mmHg) O2 Sat by Pulse 99 100 Oximetry 02/01/17 02/01/17 02/01/17 00:02 00:54 01:00 Temperature 98.6 F 98.6 F Pulse Rate 95 85 Respiratory 24 19 23 Rate Blood Pressure 88/42 (mmHg) O2 Sat by Pulse 100 100 Oximetry 02/01/17 02/01/17 02/01/17 02:00 03:00 04:00 Temperature 98.4 F 98.1 F 98.2 F Pulse Rate 78 79 82 Respiratory 16 17 16 Rate Blood Pressure 100/49 102/59 97/56 (mmHg) O2 Sat by Pulse 100 100 100 Oximetry 02/01/17 02/01/17 02/01/17 05:00 06:00 07:00 Temperature 98.4 F 98.1 F 98.1 F Pulse Rate 86 90 83 Respiratory 15 18 15 Rate Blood Pressure 101/48 102/49 96/50 (mmHg) O2 Sat by Pulse 99 99 100 Oximetry 02/01/17 02/01/17 02/01/17 08:00 08:20 09:00 Temperature 98.4 F 98.6 F Pulse Rate 90 83 93 Respiratory 18 16 22 Rate Blood Pressure 117/74 (mmHg) O2 Sat by Pulse 97 97 97 Oximetry 02/01/17 02/01/17 02/01/17 10:00 11:00 11:01 Temperature 98.8 F Pulse Rate 94 91 91 Respiratory 19 28 23 Rate Blood Pressure 118/58 107/57 (mmHg) O2 Sat by Pulse 95 88 90 Oximetry 02/01/17 02/01/17 02/01/17 12:00 12:51 13:00 Temperature Pulse Rate 85 92 101 Respiratory 20 23 16 Rate Blood Pressure 117/64 (mmHg) O2 Sat by Pulse 93 96 93 Oximetry 02/01/17 02/01/17 02/01/17 13:01 14:00 15:00 Temperature Pulse Rate 100 99 98 Respiratory 27 22 16 Rate Blood Pressure 121/75 121/69 (mmHg) O2 Sat by Pulse 88 97 90 Oximetry 02/01/17 02/01/17 02/01/17 15:01 15:15 16:00 Temperature 98.3 F Pulse Rate 99 95 Respiratory 22 24 Rate Blood Pressure 132/64 (mmHg) O2 Sat by Pulse 93 98 Oximetry 02/01/17 16:01 Temperature Pulse Rate 95 Respiratory 17 Rate Blood Pressure 142/109 (mmHg) O2 Sat by Pulse 100 Oximetry Oxygen Devices in Use Now: Nasal Cannula - 5L, High Flow Nasal Cannula Appearance: NAD Eyes: No Scleral Icterus Ears/Nose/Mouth/Throat: Mucous Membranes Moist Neck: NL Appearance and Movements; NL JVP, Trachea Midline Respiratory: Symmetrical Chest Expansion and Respiratory Effort, - - scatter rales Cardiovascular: RRR Abdominal: NL Sounds; No Tenderness; No Distention, No Hepatosplenomegaly Lymphatic: No Cervical Adenopathy Extremities: No Edema Skin: No Rash or Ulcers Neurological: Alert and Oriented x 3 Result Diagrams: 01/31/17 04:48 01/31/17 04:48 Additional Lab and Data: Lab Results 01/30/17 01/30/17 01/30/17 Range/Units 11:45 11:45 11:45 WBC 12.8 H (3.5-10.8) 10^3/ul RBC 4.37 (4.0-5.4) 10^6/ul Hgb 11.0 L (12.0-16.0) g/dl Hct 35 (35-47) % MCV 80 (80-97) fL MCH 25 L (27-31) pg MCHC 32 (31-36) g/dl RDW 18 H (10.5-15) % Plt Count 182 (150-450) 10^3/ul MPV 7 L (7.4-10.4) um3 Neut % (Auto) 81.5 (38-83) % Lymph % (Auto) 10.0 L (25-47) % [place] % (Auto) 7.7 (1-9) % Eos % (Auto) 0.6 (0-6) % Baso % (Auto) 0.2 (0-2) % Absolute Neuts (auto) 10.5 H (1.5-7.7) 10^3/ul Absolute Lymphs (auto) 1.3 (1.0-4.8) 10^3/ul Absolute Monos (auto) 1.0 H (0-0.8) 10^3/ul Absolute Eos (auto) 0.1 (0-0.6) 10^3/ul Absolute Basos (auto) 0 (0-0.2) 10^3/ul Absolute Nucleated RBC 0.01 10^3/ul Nucleated RBC % 0.1 ESR Pending Sodium 142 (133-145) mmol/L Potassium 3.6 (3.5-5.0) mmol/L Chloride 96 L (101-111) mmol/L Carbon Dioxide 37 H (22-32) mmol/L Anion Gap 9 (2-11) mmol/L BUN 15 (6-24) mg/dL Creatinine 0.84 (0.51-0.95) mg/dL Est GFR ( Amer) 84.6 (>60) Est GFR (Non-Af Amer) 65.7 (>60) BUN/Creatinine Ratio 17.9 (8-20) Glucose 120 H (70-100) mg/dL Lactic Acid 2.7 H* (0.5-2.0) mmol/L Calcium 9.8 (8.6-10.3) mg/dL Magnesium 2.0 (1.9-2.7) mg/dL Total Bilirubin 0.80 (0.2-1.0) mg/dL AST 28 (13-39) U/L ALT 36 (7-52) U/L Alkaline Phosphatase 170 H (34-104) U/L Total Creatine Kinase 36 (10-223) U/L Myoglobin 37.0 (14.3-65.8) ng/mL Troponin I 0.03 (<0.04) ng/mL C-React Prot High Sens 67.76 mg/L Total Protein 7.3 (6.4-8.9) g/dL Albumin 4.0 (3.2-5.2) g/dL Globulin 3.3 (2-4) g/dL Albumin/Globulin Ratio 1.2 (1-3) TSH Pending Microbiology and Other Data: Microbiology 01/30/17 22:25 Nasal Screen MRSA (PCR)(CHANG) - Final Nasal Mrsa Negative Assess/Plan/Problems-Billing Assessment: 76 yo F h/o advanced COPD on O2 and chronic steroids, chf with recent PNA p/w fall found with sacral ala fracture and hypoxic respiratory failure in setting of PNA - Patient Problems (1) Acute on chronic respiratory failure with hypoxemia Comment: Secondaryto PNA with underlying COPD Vapotherm weaned off 01/31. Transfer to N 02/01 c/w zosyn (2) Parkinson disease Comment: sinemet (3) Sacral insufficiency fracture with routine healing Comment: WBAT norco lidocaine patch (4) COPD (chronic obstructive pulmonary disease) Comment: prednisone 20 dulera, sinulair (5) HTN (hypertension) Comment: clonidine, losartan lasix (6) DVT prophylaxis Comment: Lovenox
[2017-02-01] MEDS: Acetaminophen TAB* 325 MG PO PRN (20:22)
[2017-02-01] MEDS: Montelukast Sodium TAB* 10 MG PO SCH (20:23)
[2017-02-01] MEDS: Mirtazapine TAB* 15 MG PO SCH (20:24)
[2017-02-01] MEDS: Lidocaine Patch REMOVE* 1 NOTE MISC SCH (21:02)
[2017-02-01] MEDS: CMC: Melatonin (NF) 3 MG TAB PO SCH (21:03)
[2017-02-02] MEDS: HYDROcodone/ACETAMIN 5-325 MG* 1 TAB PO PRN ×5 (00:05→23:15)
[2017-02-02] MEDS: ZOSYN 3.375 GM Q8H per EXTENDED INFUSION IVPB SCH ×6 (04:39→20:30)
[2017-02-02] MEDS: Ipratropium 0.5MG/2.5ML NEB* 0.5 MG/2.5 ML NEB.SOLN INH SCH ×3 (07:43→19:44)
[2017-02-02] MEDS: Mometasone/Formoter 100/5 MDI INH SCH ×3 (07:44→20:57)
[2017-02-02] MEDS: Furosemide TAB* 40 MG PO SCH (09:06)
[2017-02-02] MEDS: Losartan TAB* 25 MG PO SCH (09:06)
[2017-02-02] MEDS: Multivitamins/Minerals TAB PO SCH (09:06)
[2017-02-02] MEDS: Cyanocobalamin TAB* 500 MCG PO SCH (09:06)
[2017-02-02] MEDS: Pyridoxine TAB* 50 MG PO SCH (09:06)
[2017-02-02] MEDS: Sertraline* 100 MG TAB PO SCH ×2 (09:06→20:34)
[2017-02-02] MEDS: Folic Acid TAB* 1 MG PO SCH (09:08)
[2017-02-02] MEDS: predniSONE TAB* 20 MG PO SCH (09:08)
[2017-02-02] MEDS: Lidocaine PATCH 5%* 1 PATCH TRANSDERM SCH (09:08)
[2017-02-02] MEDS: Polyethylene Glycol 3350* 17 GM PACKET PO SCH ×2 (09:08→09:26)
[2017-02-02] MEDS: Enoxaparin(*) 40 MG/0.4 ML SYR SUBCUT SCH (09:09)
[2017-02-02] MEDS: cloNIDine TAB* 0.1 MG PO SCH ×2 (09:22→16:15)
[2017-02-02] MEDS: Carbidopa/Levodop 25/100 MG TAB(*) PO SCH ×3 (09:22→20:35)
[2017-02-02] MEDS: traMADol TAB* 50 MG PO PRN ×2 (10:40→18:00)
[2017-02-02] MEDS: oxyCODONE TAB* 5 MG TAB PO PRN ×2 (14:43→20:35)
--- NOTE | 2017-02-02 14:43 | PN ---
Progress Note - Progress Note Date of Service: 02/02/17 SOAP: Subjective: []Patient seen at bedside, she complains of pain of her right low back. She denies any chest pain, leg numbness, nausea, fever. She is incontinent of urine at baseline with no change. Objective: [] Laboratory Last Values WBC 11.8 10^3/ul (3.5-10.8) H 01/31/17 04:48 RBC 4.41 10^6/ul (4.0-5.4) 01/31/17 04:48 Hgb 11.3 g/dl (12.0-16.0) L 01/31/17 04:48 Hct 35 % (35-47) 01/31/17 04:48 MCV 80 fL (80-97) 01/31/17 04:48 MCH 26 pg (27-31) L 01/31/17 04:48 MCHC 32 g/dl (31-36) 01/31/17 04:48 RDW 18 % (10.5-15) H 01/31/17 04:48 Plt Count 157 10^3/ul (150-450) 01/31/17 04:48 MPV 7 um3 (7.4-10.4) L 01/31/17 04:48 Neut % (Auto) 92.1 % (38-83) H 01/31/17 04:48 Lymph % (Auto) 5.3 % (25-47) L 01/31/17 04:48 [place] % (Auto) 2.0 % (1-9) 01/31/17 04:48 Eos % (Auto) 0 % (0-6) 01/31/17 04:48 Baso % (Auto) 0.6 % (0-2) 01/31/17 04:48 Absolute Neuts (auto) 10.9 10^3/ul (1.5-7.7) H 01/31/17 04:48 Absolute Lymphs (auto) 0.6 10^3/ul (1.0-4.8) L 01/31/17 04:48 Absolute Monos (auto) 0.2 10^3/ul (0-0.8) 01/31/17 04:48 Absolute Eos (auto) 0 10^3/ul (0-0.6) 01/31/17 04:48 Absolute Basos (auto) 0.1 10^3/ul (0-0.2) 01/31/17 04:48 Absolute Nucleated RBC 0 10^3/ul 01/31/17 04:48 Nucleated RBC % 0 01/31/17 04:48 ESR 32 mm/Hr (0-40) 01/30/17 11:45 D-Dimer, Quantitative > 1050 ng/mL (Less Than 230) H 01/30/17 11:45 Patient Temperature Not Reportable 01/30/17 16:00 ABG pH 7.40 (7.35-7.45) 01/30/17 16:00 ABG pH (Temp Correct) Not Reportable 01/30/17 16:00 ABG pCO2 62 mmHg (35-45) H 01/30/17 16:00 ABG pCO2 (Temp Corrct Not Reportable 01/30/17 16:00 ABG pO2 164 mmHg (80-100) H 01/30/17 16:00 ABG pO2 (Temp Correct Not Reportable 01/30/17 16:00 ABG HCO3 33.9 mmol/L (19-31) H 01/30/17 16:00 ABG O2 Saturation 99.9 % (95-98) H 01/30/17 16:00 ABG Base Excess 11.5 (-2.0-2.0) H 01/30/17 16:00 Respiration Rate Not Reportable 01/30/17 16:00 O2 Delivery Device nasal cannula 01/30/17 16:00 Ventilator Type Not Reportable 01/30/17 16:00 Vent Mode Not Reportable 01/30/17 16:00 FiO2 4 01/30/17 16:00 Inspiratory Time Not Reportable 01/30/17 16:00 PEEP Not Reportable 01/30/17 16:00 Pressure Support Not Reportable 01/30/17 16:00 Pressure Control Not Reportable 01/30/17 16:00 EPAP Not Reportable 01/30/17 16:00 IPAP Not Reportable 01/30/17 16:00 BiPAP Not Reportable 01/30/17 16:00 Sodium 141 mmol/L (133-145) 01/31/17 04:48 Potassium 4.2 mmol/L (3.5-5.0) 01/31/17 04:48 Chloride 98 mmol/L (101-111) L 01/31/17 04:48 Carbon Dioxide 38 mmol/L (22-32) H 01/31/17 04:48 Anion Gap 5 mmol/L (2-11) 01/31/17 04:48 BUN 16 mg/dL (6-24) 01/31/17 04:48 Creatinine 0.92 mg/dL (0.51-0.95) 01/31/17 04:48 Est GFR ( Amer) 76.1 (>60) 01/31/17 04:48 Est GFR (Non-Af Amer) 59.2 (>60) 01/31/17 04:48 BUN/Creatinine Ratio 17.4 (8-20) 01/31/17 04:48 Glucose 153 mg/dL (70-100) H 01/31/17 04:48 Lactic Acid 1.4 mmol/L (0.5-2.0) 01/30/17 17:10 Calcium 9.2 mg/dL (8.6-10.3) 01/31/17 04:48 Magnesium 2.0 mg/dL (1.9-2.7) 01/30/17 11:45 Total Bilirubin 0.80 mg/dL (0.2-1.0) 01/30/17 11:45 AST 28 U/L (13-39) 01/30/17 11:45 ALT 36 U/L (7-52) 01/30/17 11:45 Alkaline Phosphatase 170 U/L (34-104) H 01/30/17 11:45 Total Creatine Kinase 30 U/L (10-223) 01/30/17 17:10 Myoglobin 37.0 ng/mL (14.3-65.8) 01/30/17 11:45 Troponin I 0.03 ng/mL (<0.04) 01/30/17 11:45 C-React Prot High Sens 67.76 mg/L 01/30/17 11:45 B-Natriuretic Peptide 62 pg/mL (-100) 01/30/17 11:45 Total Protein 7.3 g/dL (6.4-8.9) 01/30/17 11:45 Albumin 4.0 g/dL (3.2-5.2) 01/30/17 11:45 Globulin 3.3 g/dL (2-4) 01/30/17 11:45 Albumin/Globulin Ratio 1.2 (1-3) 01/30/17 11:45 TSH 9.05 mcIU/mL (0.34-5.60) H 01/30/17 11:45 Free T4 0.80 ng/dL (0.61-1.12) 01/30/17 11:45 Free T3 3.80 pg/mL (2.5-3.9) 01/30/17 11:45 Urine Color Yellow 01/31/17 07:00 Urine Appearance Clear 01/31/17 07:00 Urine pH 6.0 (5-9) 01/31/17 07:00 Ur Specific [place] > 1.060 (1.010-1.030) H 01/31/17 07:00 Urine Protein 1+(30 mg/dl) (Negative) H 01/31/17 07:00 Urine Ketones Negative (Negative) 01/31/17 07:00 Urine Blood 3+ (Negative) H 01/31/17 07:00 Urine Nitrate Negative (Negative) 01/31/17 07:00 Urine Bilirubin Negative (Negative) 01/31/17 07:00 Urine Urobilinogen Negative (Negative) 01/31/17 07:00 Ur Leukocyte Esterase Negative (Negative) 01/31/17 07:00 Urine WBC (Auto) Trace(0-5/hpf) (Absent) 01/31/17 07:00 Urine RBC (Auto) 3+(>10/hpf) (Absent) H 01/31/17 07:00 Urine Bacteria Absent (Absent) 01/31/17 07:00 Urine Glucose Negative (Negative) 01/31/17 07:00 Urine Ascorbic Acid * (Negative) H 01/31/17 07:00 Vital Signs Temp 98.2 F 02/02/17 15:55 Pulse 105 02/02/17 15:55 Resp 26 02/02/17 15:55 BP 150/62 02/02/17 15:55 Pulse Ox 91 02/02/17 15:55 Intake & Output 02/01/17 02/02/17 02/02/17 18:59 06:59 18:59 Intake Total 771 188 770 Output Total 0 Balance 771 188 770 Intake: IV Fluids 211 30 NS (0.9%) 30 ZOsyn 211 IVPB 158 ZOsyn 158 Oral 560 0 770 Output: Urine 0 Other: Estimated Void Large # Bowel Movements 1 0 1 Estimated Stool Amount Small Medium # Voids 1 General: Laying on left side in bed, appears to be in pain. MSK: Tenderness to palpation of right midback to midbuttock, no midline tenderness. Willing to engage in minimal ROM at hip due to pain. Neuro: Sensation grossly intact to light touch throughout lower extremities Vasc: 2+ DP/PT pulses bilaterally Skin: no skin breakdown, ecchymosis or laceration over right low back or hip. Assessment: []Right nondisplaced sacral ala fracture Plan: [] WBAT with walker Will continue to follow as inpatient, f/u Dr. Can outpt
--- NOTE | 2017-02-02 14:59 | PN ---
Subjective Date of Service: 02/02/17 Interval History: Pain in hip worse today. Requesting more medication but not morphine Has not participated with PT Has indicate dto me she would go to [place] but apparently has reported to case management she wants to return home Feels breathing is close to baseline but still o2 dependent Objective Active Medications: Acetaminophen (Tylenol Tab*) 650 mg PO Q4H PRN PRN Reason: FEVER/PAIN Last Admin: 02/01/17 20:22 Dose: 650 mg Hydrocodone Bitart/Acetaminophen ([place] 5-325 Tab*) 2 tab PO Q4H PRN PRN Reason: PAIN - MODERATE TO SEVERE Last Admin: 02/02/17 09:09 Dose: 2 tab Hydrocodone Bitart/Acetaminophen ([place] 5-325 Tab*) 1 tab PO Q4H PRN PRN Reason: PAIN - MILD TO MODERATE Last Admin: 02/02/17 04:39 Dose: 1 tab Albuterol/Ipratropium (Duoneb (Albuterol 2.5 Mg/Ipratropium 0.5 Mg)) 1 neb INH Q2H PRN PRN Reason: SOB/WHEEZING Last Admin: 02/01/17 15:58 Dose: 1 neb Carbidopa/Levodopa (Sinemet 25/100 Tab(*)) 1 tab PO 0700,1300,2000 [facility] Last Admin: 02/02/17 09:22 Dose: 1 tab Clonidine HCl (Catapres Tab*) 0.1 mg PO 0700,1600 [facility] Last Admin: 02/02/17 09:22 Dose: 0.1 mg Cyanocobalamin (Vitamin B12 Tab*) 1,000 mcg PO DAILY [facility] Last Admin: 02/02/17 09:06 Dose: 1,000 mcg Enoxaparin Sodium (Lovenox(*)) 40 mg SUBCUT DAILY [facility] Last Admin: 02/02/17 09:09 Dose: 40 mg Folic Acid (Folvite Tab*) 1 mg PO DAILY [facility] Last Admin: 02/02/17 09:08 Dose: 1 mg Furosemide (Lasix Tab*) 40 mg PO DAILY [facility] Last Admin: 02/02/17 09:06 Dose: 40 mg Piperacillin Sod/Tazobactam (Sod 3.375 gm/ Sodium Chloride) 100 mls @ 25 mls/ hr IVPB Q8H [facility] Last Admin: 02/02/17 14:42 Dose: 25 mls/hr Ipratropium [place] (Atrovent 0.5 Mg Neb.Jennifer*) 0.5 mg INH RT.TID [facility] Last Admin: 02/02/17 14:23 Dose: 0.5 mg Lidocaine (Lidoderm 5% Patch*) 1 patch TRANSDERM 0900 [facility] Last Admin: 02/02/17 09:08 Dose: 1 patch Lorazepam (Ativan Tab(*)) 0.5 mg PO Q8H PRN PRN Reason: ANXIETY Losartan Potassium (Cozaar Tab*) 25 mg PO DAILY [facility] Last Admin: 02/02/17 09:06 Dose: 25 mg Melatonin (Melatonin (Nf)) 3 mg PO BEDTIME [facility] Last Admin: 02/01/17 21:03 Dose: 3 mg Mirtazapine (Remeron Tab*) 7.5 mg PO BEDTIME [facility] Last Admin: 02/01/17 20:24 Dose: 7.5 mg Mometasone Furoate/Formoterol Fumar (Dulera 100/5 Mdi*) 2 puff INH BID [facility] Last Admin: 02/02/17 07:44 Dose: 2 puff Montelukast Sodium (Singulair Tab*) 10 mg PO BEDTIME [facility] Last Admin: 02/01/17 20:23 Dose: 10 mg Multivitamins/Minerals (Theragran/Minerals Tab*) 1 tab PO DAILY [facility] Last Admin: 02/02/17 09:06 Dose: 1 tab Ondansetron HCl (Zofran Inj*) 4 mg IV Q6H PRN PRN Reason: NAUSEA/VOMITING Oxycodone HCl (Roxycodone Tab*) 5 mg PO Q4H PRN PRN Reason: PAIN - BREAKTHROUGH Last Admin: 02/02/17 14:43 Dose: 5 mg Pharmacy Consult (Zosyn Per Pharmacy*) 1 note FOLLOW UP .ZOSYN PER PHARMACY [facility] Pharmacy Profile Note (Lidocaine Patch Remove*) 1 note N/A 2100 [facility] Last Admin: 02/01/17 21:02 Dose: 1 note Polyethylene Glycol/Electrolytes (Miralax*) 17 gm PO DAILY [facility] Last Admin: 02/02/17 09:26 Dose: Not Given Prednisone (Deltasone Tab*) 20 mg PO DAILY [facility] Last Admin: 02/02/17 09:08 Dose: 20 mg Pyridoxine HCl (Vitamin B6 Tab*) 25 mg PO DAILY [facility] Last Admin: 02/02/17 09:06 Dose: 25 mg Senna (Senokot Tab*) 2 tab PO DAILY PRN PRN Reason: CONSTIPATION Sertraline HCl (Zoloft*) 100 mg PO BID [facility] Last Admin: 02/02/17 09:06 Dose: 100 mg Tramadol HCl (Ultram*) 50 mg PO Q6H PRN PRN Reason: PAIN Last Admin: 02/02/17 10:40 Dose: 50 mg Vital Signs 02/01/17 02/01/17 02/01/17 15:00 15:01 15:15 Temperature 98.3 F Pulse Rate 98 99 Respiratory 16 22 Rate Blood Pressure 132/64 (mmHg) O2 Sat by Pulse 90 93 Oximetry 02/01/17 02/01/17 02/01/17 16:00 16:01 17:00 Temperature Pulse Rate 95 95 93 Respiratory 24 17 17 Rate Blood Pressure 142/109 110/75 (mmHg) O2 Sat by Pulse 98 100 94 Oximetry 02/01/17 02/01/17 02/01/17 19:44 19:47 22:46 Temperature 98.3 F 98.3 F Pulse Rate 97 97 Respiratory 20 20 20 Rate Blood Pressure 111/71 111/71 (mmHg) O2 Sat by Pulse 98 98 Oximetry 02/01/17 02/01/17 02/02/17 23:10 23:57 00:05 Temperature 98.2 F Pulse Rate 91 Respiratory 16 20 Rate Blood Pressure 113/55 (mmHg) O2 Sat by Pulse 95 97 Oximetry 02/02/17 02/02/17 02/02/17 01:14 02:30 04:38 Temperature 97.5 F Pulse Rate 89 Respiratory 18 18 16 Rate Blood Pressure 142/73 (mmHg) O2 Sat by Pulse 99 Oximetry 02/02/17 02/02/17 02/02/17 04:39 06:40 07:37 Temperature Pulse Rate Respiratory 20 18 Rate Blood Pressure (mmHg) O2 Sat by Pulse 97 Oximetry 02/02/17 02/02/17 02/02/17 07:40 07:45 09:09 Temperature Pulse Rate 90 90 Respiratory 19 19 20 Rate Blood Pressure (mmHg) O2 Sat by Pulse 94 94 Oximetry 02/02/17 02/02/17 02/02/17 10:40 14:24 14:43 Temperature Pulse Rate 105 Respiratory 20 19 18 Rate Blood Pressure (mmHg) O2 Sat by Pulse 97 Oximetry Oxygen Devices in Use Now: Nasal Cannula Appearance: grimacing in pain otherwise no distress Eyes: No Scleral Icterus, PERRLA Ears/Nose/Mouth/Throat: Clear Oropharnyx, Mucous Membranes Moist Neck: NL Appearance and Movements; NL JVP, Trachea Midline Respiratory: Symmetrical Chest Expansion and Respiratory Effort, - - rales left base Cardiovascular: RRR Abdominal: NL Sounds; No Tenderness; No Distention, No Hepatosplenomegaly Lymphatic: No Cervical Adenopathy Extremities: No Edema, No Clubbing, Cyanosis Skin: No Rash or Ulcers Neurological: Alert and Oriented x 3 Result Diagrams: 01/31/17 04:48 01/31/17 04:48 Additional Lab and Data: Lab Results 01/30/17 01/30/17 01/30/17 Range/Units 11:45 11:45 11:45 WBC 12.8 H (3.5-10.8) 10^3/ul RBC 4.37 (4.0-5.4) 10^6/ul Hgb 11.0 L (12.0-16.0) g/dl Hct 35 (35-47) % MCV 80 (80-97) fL MCH 25 L (27-31) pg MCHC 32 (31-36) g/dl RDW 18 H (10.5-15) % Plt Count 182 (150-450) 10^3/ul MPV 7 L (7.4-10.4) um3 Neut % (Auto) 81.5 (38-83) % Lymph % (Auto) 10.0 L (25-47) % [place] % (Auto) 7.7 (1-9) % Eos % (Auto) 0.6 (0-6) % Baso % (Auto) 0.2 (0-2) % Absolute Neuts (auto) 10.5 H (1.5-7.7) 10^3/ul Absolute Lymphs (auto) 1.3 (1.0-4.8) 10^3/ul Absolute Monos (auto) 1.0 H (0-0.8) 10^3/ul Absolute Eos (auto) 0.1 (0-0.6) 10^3/ul Absolute Basos (auto) 0 (0-0.2) 10^3/ul Absolute Nucleated RBC 0.01 10^3/ul Nucleated RBC % 0.1 ESR Pending Sodium 142 (133-145) mmol/L Potassium 3.6 (3.5-5.0) mmol/L Chloride 96 L (101-111) mmol/L Carbon Dioxide 37 H (22-32) mmol/L Anion Gap 9 (2-11) mmol/L BUN 15 (6-24) mg/dL Creatinine 0.84 (0.51-0.95) mg/dL Est GFR ( Amer) 84.6 (>60) Est GFR (Non-Af Amer) 65.7 (>60) BUN/Creatinine Ratio 17.9 (8-20) Glucose 120 H (70-100) mg/dL Lactic Acid 2.7 H* (0.5-2.0) mmol/L Calcium 9.8 (8.6-10.3) mg/dL Magnesium 2.0 (1.9-2.7) mg/dL Total Bilirubin 0.80 (0.2-1.0) mg/dL AST 28 (13-39) U/L ALT 36 (7-52) U/L Alkaline Phosphatase 170 H (34-104) U/L Total Creatine Kinase 36 (10-223) U/L Myoglobin 37.0 (14.3-65.8) ng/mL Troponin I 0.03 (<0.04) ng/mL C-React Prot High Sens 67.76 mg/L Total Protein 7.3 (6.4-8.9) g/dL Albumin 4.0 (3.2-5.2) g/dL Globulin 3.3 (2-4) g/dL Albumin/Globulin Ratio 1.2 (1-3) TSH Pending Microbiology and Other Data: Microbiology 01/30/17 22:25 Nasal Screen MRSA (PCR)(CHANG) - Final Nasal Mrsa Negative Assess/Plan/Problems-Billing Assessment: 76 yo F h/o advanced COPD on O2 and chronic steroids, chf with recent PNA p/w fall found with sacral ala fracture and hypoxic respiratory failure in setting of PNA - Patient Problems (1) Acute on chronic respiratory failure with hypoxemia Comment: Secondaryto PNA with underlying COPD Vapotherm weaned off 01/31. Transfer to 02/01 Day 3 zosyn (2) Parkinson disease Comment: sinemet (3) Sacral insufficiency fracture with routine healing Comment: WBAT norco lidocaine patch Add tramadol 02/02 (4) COPD (chronic obstructive pulmonary disease) Comment: prednisone 20mg. Consider tapering tomorrow depending on continued improvement dulera, sinulair (5) HTN (hypertension) Comment: clonidine, losartan lasix (6) DVT prophylaxis Comment: Lovenox
[2017-02-02] MEDS: Mirtazapine TAB* 15 MG PO SCH (20:33)
[2017-02-02] MEDS: Montelukast Sodium TAB* 10 MG PO SCH (20:34)
[2017-02-02] MEDS: Acetaminophen TAB* 325 MG PO PRN (20:34)
[2017-02-02] MEDS: CMC: Melatonin (NF) 3 MG TAB PO SCH (20:36)
[2017-02-02] MEDS: Lidocaine Patch REMOVE* 1 NOTE MISC SCH (20:37)
[2017-02-02] MEDS: Albuterol/Ipratropium NEB.SOL* Albuterol 2.5 MG/Ipratropium 0.5 MG 3 ML INH PRN (20:53)
[2017-02-03] MEDS: oxyCODONE TAB* 5 MG TAB PO PRN (02:49)
[2017-02-03] MEDS: Carbidopa/Levodop 25/100 MG TAB(*) PO SCH ×3 (05:41→19:27)
[2017-02-03] MEDS: ZOSYN 3.375 GM Q8H per EXTENDED INFUSION IVPB SCH ×2 (05:41)
[2017-02-03] MEDS: HYDROcodone/ACETAMIN 5-325 MG* 1 TAB PO PRN (05:41)
[2017-02-03] MEDS: Ipratropium 0.5MG/2.5ML NEB* 0.5 MG/2.5 ML NEB.SOLN INH SCH (07:23)
[2017-02-03] MEDS: Mometasone/Formoter 100/5 MDI INH SCH ×2 (07:23→20:54)
--- NOTE | 2017-02-03 09:06 | PN ---
Progress Note - Progress Note Date of Service: 02/03/17 SOAP: Subjective: []Patient seen at bedside. She reports 10 right low back pain. She is short of breath which is being followed by the hospitalist service. She had a chest CTA negative for PE 01/31/17. No chest pain, nausea, fever or chills. Has been having loose stools x 1 day. Objective: [] Vital Signs Temp 98.5 F 02/03/17 07:49 Pulse 96 02/03/17 07:49 Resp 20 02/03/17 13:27 BP 133/67 02/03/17 07:49 Pulse Ox 96 02/03/17 07:49 Intake & Output 02/02/17 02/03/17 02/03/17 18:59 06:59 18:59 Intake Total 990 2510 200 Balance 990 2510 200 Weight 183 lb 9.6 oz Intake: IV Fluids 40 NS (0.9%) 40 IVPB 250 ZOsyn 250 Oral 990 2220 200 Other: Estimated Void Large # Bowel Movements 1 1 Estimated Stool Amount Medium Large Medium # Voids 1 Laboratory Last Values WBC 11.8 10^3/ul (3.5-10.8) H 02/03/17 11:32 RBC 4.41 10^6/ul (4.0-5.4) 02/03/17 11:32 Hgb 11.1 g/dl (12.0-16.0) L 02/03/17 11:32 Hct 35 % (35-47) 02/03/17 11:32 MCV 80 fL (80-97) 02/03/17 11:32 MCH 25 pg (27-31) L 02/03/17 11:32 MCHC 32 g/dl (31-36) 02/03/17 11:32 RDW 19 % (10.5-15) H 02/03/17 11:32 Plt Count 204 10^3/ul (150-450) 02/03/17 11:32 MPV 7 um3 (7.4-10.4) L 02/03/17 11:32 Neut % (Auto) 80.3 % (38-83) 02/03/17 11:32 Lymph % (Auto) 10.9 % (25-47) L 02/03/17 11:32 [place] % (Auto) 7.3 % (1-9) 02/03/17 11:32 Eos % (Auto) 1.1 % (0-6) 02/03/17 11:32 Baso % (Auto) 0.4 % (0-2) 02/03/17 11:32 Absolute Neuts (auto) 9.4 10^3/ul (1.5-7.7) H 02/03/17 11:32 Absolute Lymphs (auto) 1.3 10^3/ul (1.0-4.8) 02/03/17 11:32 Absolute Monos (auto) 0.9 10^3/ul (0-0.8) H 02/03/17 11:32 Absolute Eos (auto) 0.1 10^3/ul (0-0.6) 02/03/17 11:32 Absolute Basos (auto) 0 10^3/ul (0-0.2) 02/03/17 11:32 Absolute Nucleated RBC 0.01 10^3/ul 02/03/17 11:32 Nucleated RBC % 0 02/03/17 11:32 ESR 32 mm/Hr (0-40) 01/30/17 11:45 D-Dimer, Quantitative > 1050 ng/mL (Less Than 230) H 01/30/17 11:45 Patient Temperature Not Reportable 01/30/17 16:00 ABG pH 7.40 (7.35-7.45) 01/30/17 16:00 ABG pH (Temp Correct) Not Reportable 01/30/17 16:00 ABG pCO2 62 mmHg (35-45) H 01/30/17 16:00 ABG pCO2 (Temp Corrct Not Reportable 01/30/17 16:00 ABG pO2 164 mmHg (80-100) H 01/30/17 16:00 ABG pO2 (Temp Correct Not Reportable 01/30/17 16:00 ABG HCO3 33.9 mmol/L (19-31) H 01/30/17 16:00 ABG O2 Saturation 99.9 % (95-98) H 01/30/17 16:00 ABG Base Excess 11.5 (-2.0-2.0) H 01/30/17 16:00 Respiration Rate Not Reportable 01/30/17 16:00 O2 Delivery Device nasal cannula 01/30/17 16:00 Ventilator Type Not Reportable 01/30/17 16:00 Vent Mode Not Reportable 01/30/17 16:00 FiO2 4 01/30/17 16:00 Inspiratory Time Not Reportable 01/30/17 16:00 PEEP Not Reportable 01/30/17 16:00 Pressure Support Not Reportable 01/30/17 16:00 Pressure Control Not Reportable 01/30/17 16:00 EPAP Not Reportable 01/30/17 16:00 IPAP Not Reportable 01/30/17 16:00 BiPAP Not Reportable 01/30/17 16:00 Sodium 142 mmol/L (133-145) 02/03/17 11:32 Potassium 2.9 mmol/L (3.5-5.0) L 02/03/17 11:32 Chloride 96 mmol/L (101-111) L 02/03/17 11:32 Carbon Dioxide 38 mmol/L (22-32) H 02/03/17 11:32 Anion Gap 8 mmol/L (2-11) 02/03/17 11:32 BUN 15 mg/dL (6-24) 02/03/17 11:32 Creatinine 0.83 mg/dL (0.51-0.95) 02/03/17 11:32 Est GFR ( Amer) 85.7 (>60) 02/03/17 11:32 Est GFR (Non-Af Amer) 66.7 (>60) 02/03/17 11:32 BUN/Creatinine Ratio 18.1 (8-20) 02/03/17 11:32 Glucose 102 mg/dL (70-100) H 02/03/17 11:32 Lactic Acid 1.4 mmol/L (0.5-2.0) 01/30/17 17:10 Calcium 9.9 mg/dL (8.6-10.3) 02/03/17 11:32 Magnesium 2.0 mg/dL (1.9-2.7) 01/30/17 11:45 Total Bilirubin 0.80 mg/dL (0.2-1.0) 01/30/17 11:45 AST 28 U/L (13-39) 01/30/17 11:45 ALT 36 U/L (7-52) 01/30/17 11:45 Alkaline Phosphatase 170 U/L (34-104) H 01/30/17 11:45 Total Creatine Kinase 30 U/L (10-223) 01/30/17 17:10 Myoglobin 37.0 ng/mL (14.3-65.8) 01/30/17 11:45 Troponin I 0.03 ng/mL (<0.04) 01/30/17 11:45 C-React Prot High Sens 67.76 mg/L 01/30/17 11:45 B-Natriuretic Peptide 62 pg/mL (-100) 01/30/17 11:45 Total Protein 7.3 g/dL (6.4-8.9) 01/30/17 11:45 Albumin 4.0 g/dL (3.2-5.2) 01/30/17 11:45 Globulin 3.3 g/dL (2-4) 01/30/17 11:45 Albumin/Globulin Ratio 1.2 (1-3) 01/30/17 11:45 TSH 9.05 mcIU/mL (0.34-5.60) H 01/30/17 11:45 Free T4 0.80 ng/dL (0.61-1.12) 01/30/17 11:45 Free T3 3.80 pg/mL (2.5-3.9) 01/30/17 11:45 Urine Color Yellow 01/31/17 07:00 Urine Appearance Clear 01/31/17 07:00 Urine pH 6.0 (5-9) 01/31/17 07:00 Ur Specific [place] > 1.060 (1.010-1.030) H 01/31/17 07:00 Urine Protein 1+(30 mg/dl) (Negative) H 01/31/17 07:00 Urine Ketones Negative (Negative) 01/31/17 07:00 Urine Blood 3+ (Negative) H 01/31/17 07:00 Urine Nitrate Negative (Negative) 01/31/17 07:00 Urine Bilirubin Negative (Negative) 01/31/17 07:00 Urine Urobilinogen Negative (Negative) 01/31/17 07:00 Ur Leukocyte Esterase Negative (Negative) 01/31/17 07:00 Urine WBC (Auto) Trace(0-5/hpf) (Absent) 01/31/17 07:00 Urine RBC (Auto) 3+(>10/hpf) (Absent) H 01/31/17 07:00 Urine Bacteria Absent (Absent) 01/31/17 07:00 Urine Glucose Negative (Negative) 01/31/17 07:00 Urine Ascorbic Acid * (Negative) H 01/31/17 07:00 General: Patient is in pain. Alert, cooperative. She is laying on her left side. MSK: Tender to palpation throughout right low back and right buttock. Has improved movement of right hip wit Neuro: Sensation intact throughout lower extremities to light touch. Inconsistently reports mild decreased sensation of right dorsum over the 1st metatarsal. Sensation intact to webspace of 1st and second digit, dorsum, plantar surface, medial and lateral surface of feet. Skin: No ecchymosis, rash or lesions over above noted tender area. Assessment: []Nondisplaced right sacral ala fracture Plan: []WBAT with walker Nonoperative. MAMADOU Can outpatient Hospitalist co-managing. Nursing made aware of loose stools as well as possibility of decreased sensation to be watched over the next day, alert our team with any concerns.
[2017-02-03] MEDS ORDERED: Furosemide IV* 10 MG/ML VIAL (40 MG) IV SLOW PU ONE (09:54)
[2017-02-03] MEDS: Pyridoxine TAB* 50 MG PO SCH ×2 (10:42→13:25)
[2017-02-03] MEDS: oxyCODONE/Acetamin 5/325 MG* TAB PO PRN ×3 (10:43→23:44)
[2017-02-03] MEDS: Ibuprofen TAB* 200 MG PO SCH ×3 (10:46→21:39)
[2017-02-03] MEDS: Losartan TAB* 25 MG PO SCH (10:48)
[2017-02-03] MEDS: Furosemide TAB* 40 MG PO SCH (10:48)
[2017-02-03] MEDS: predniSONE TAB* 20 MG PO SCH (10:49)
[2017-02-03] MEDS: Sertraline* 100 MG TAB PO SCH ×2 (10:50→21:39)
[2017-02-03] MEDS: cloNIDine TAB* 0.1 MG PO SCH ×2 (10:50→16:27)
[2017-02-03] MEDS: Cyanocobalamin TAB* 500 MCG PO SCH (10:51)
[2017-02-03] MEDS: Multivitamins/Minerals TAB PO SCH (10:51)
[2017-02-03] MEDS: Folic Acid TAB* 1 MG PO SCH (10:52)
[2017-02-03] MEDS: Lidocaine PATCH 5%* 1 PATCH TRANSDERM SCH (10:52)
[2017-02-03] MEDS: Enoxaparin(*) 40 MG/0.4 ML SYR SUBCUT SCH (11:02)
[2017-02-03] MEDS: Polyethylene Glycol 3350* 17 GM PACKET PO SCH (11:12)
[2017-02-03 11:48] LABS: Hematocrit 35 % (35-47); Hemoglobin 11.1 g/dl (12.0-16.0); Mean Corpuscular HGB Conc 32 g/dl (31-36); Mean Corpuscular Hemoglobin 25 pg (27-31); Mean Corpuscular Volume 80 fL (80-97); Mean Platelet Volume 7 um3 (7.4-10.4); Red Blood Count 4.41 10^6/ul (4.0-5.4); Red Cell Distribution Width 19 % (10.5-15); White Blood Count 11.8 10^3/ul (3.5-10.8)
[2017-02-03 11:59] LABS: BUN/Creatinine Ratio 18.1 (8-20); Calcium 9.9 mg/dL (8.6-10.3); EGFR African American 85.7 (>60); EGFR Non-African American 66.7 (>60); Potassium 2.9 mmol/L (3.5-5.0)
[2017-02-03] MEDS ORDERED: Potassium Chlor TAB* 20 MEQ TAB.ER PO ONE (15:21)
--- NOTE | 2017-02-03 15:28 | PN ---
Subjective Date of Service: 02/03/17 Interval History: Seen this AM Pain in hips but declining addition of more potent medication Apparently SOB but declines subjective SOB Was reporting she would not go to [facility] but now agrees to go Objective Active Medications: Albuterol/Ipratropium (Duoneb (Albuterol 2.5 Mg/Ipratropium 0.5 Mg)) 1 neb INH Q2H PRN PRN Reason: SOB/WHEEZING Last Admin: 02/02/17 20:53 Dose: 1 neb Carbidopa/Levodopa (Sinemet 25/100 Tab(*)) 1 tab PO 0700,1300,2000 [facility] Last Admin: 02/03/17 13:25 Dose: 1 tab Clonidine HCl (Catapres Tab*) 0.1 mg PO 0700,1600 [facility] Last Admin: 02/03/17 10:50 Dose: 0.1 mg Cyanocobalamin (Vitamin B12 Tab*) 1,000 mcg PO DAILY [facility] Last Admin: 02/03/17 10:51 Dose: 1,000 mcg Enoxaparin Sodium (Lovenox(*)) 40 mg SUBCUT DAILY [facility] Last Admin: 02/03/17 11:02 Dose: 40 mg Folic Acid (Folvite Tab*) 1 mg PO DAILY [facility] Last Admin: 02/03/17 10:52 Dose: 1 mg Furosemide (Lasix Tab*) 40 mg PO DAILY [facility] Last Admin: 02/03/17 10:48 Dose: 40 mg Ibuprofen (Advil Tab*) 600 mg PO Q6H [facility] Last Admin: 02/03/17 10:46 Dose: 600 mg Levofloxacin (Levaquin Tab*) 750 mg PO DAILY [facility] Lidocaine (Lidoderm 5% Patch*) 1 patch TRANSDERM 0900 [facility] Last Admin: 02/03/17 10:52 Dose: 1 patch Lorazepam (Ativan Tab(*)) 0.5 mg PO Q8H PRN PRN Reason: ANXIETY Losartan Potassium (Cozaar Tab*) 25 mg PO DAILY [facility] Last Admin: 02/03/17 10:48 Dose: 25 mg Melatonin (Melatonin (Nf)) 3 mg PO BEDTIME [facility] Last Admin: 02/02/17 20:36 Dose: 3 mg Mirtazapine (Remeron Tab*) 7.5 mg PO BEDTIME [facility] Last Admin: 02/02/17 20:33 Dose: 7.5 mg Mometasone Furoate/Formoterol Fumar (Dulera 100/5 Mdi*) 2 puff INH BID [facility] Last Admin: 02/03/17 07:23 Dose: 2 puff Montelukast Sodium (Singulair Tab*) 10 mg PO BEDTIME [facility] Last Admin: 02/02/17 20:34 Dose: 10 mg Multivitamins/Minerals (Theragran/Minerals Tab*) 1 tab PO DAILY [facility] Last Admin: 02/03/17 10:51 Dose: 1 tab Ondansetron HCl (Zofran Inj*) 4 mg IV Q6H PRN PRN Reason: NAUSEA/VOMITING Oxycodone/Acetaminophen (Percocet 5/325 Tab*) 2 tab PO Q4H PRN PRN Reason: PAIN Last Admin: 02/03/17 10:43 Dose: 2 tab Pharmacy Consult (Zosyn Per Pharmacy*) 1 note FOLLOW UP .ZOSYN PER PHARMACY [facility] Pharmacy Profile Note (Lidocaine Patch Remove*) 1 note N/A 2100 [facility] Last Admin: 02/02/17 20:37 Dose: 1 note Polyethylene Glycol/Electrolytes (Miralax*) 17 gm PO DAILY [facility] Last Admin: 02/03/17 11:12 Dose: Not Given Potassium Chloride (Klor Con Er Tab*) 60 meq PO ONCE ONE Stop: 02/03/17 15:22 Prednisone (Deltasone Tab*) 20 mg PO DAILY [facility] Last Admin: 02/03/17 10:49 Dose: 20 mg Pyridoxine HCl (Vitamin B6 Tab*) 25 mg PO DAILY [facility] Last Admin: 02/03/17 13:25 Dose: 25 mg Senna (Senokot Tab*) 2 tab PO DAILY PRN PRN Reason: CONSTIPATION Last Admin: 02/02/17 20:34 Dose: 2 tab Sertraline HCl (Zoloft*) 100 mg PO BID [facility] Last Admin: 02/03/17 10:50 Dose: 100 mg Tramadol HCl (Ultram*) 50 mg PO Q6H PRN PRN Reason: PAIN Last Admin: 02/02/17 18:00 Dose: 50 mg Vital Signs 02/02/17 02/02/17 02/02/17 15:55 16:15 16:17 Temperature 98.2 F Pulse Rate 105 Respiratory 26 18 17 Rate Blood Pressure 150/62 (mmHg) O2 Sat by Pulse 91 Oximetry 02/02/17 02/02/17 02/02/17 18:00 18:01 19:45 Temperature Pulse Rate Respiratory 17 18 Rate Blood Pressure (mmHg) O2 Sat by Pulse 97 Oximetry 02/02/17 02/02/17 02/02/17 20:00 20:05 20:30 Temperature 98.5 F Pulse Rate 110 Respiratory 19 19 25 Rate Blood Pressure 134/77 (mmHg) O2 Sat by Pulse 94 Oximetry 02/02/17 02/02/17 02/02/17 20:35 20:37 20:58 Temperature Pulse Rate Respiratory 22 22 20 Rate Blood Pressure (mmHg) O2 Sat by Pulse 93 Oximetry 02/02/17 02/02/17 02/02/17 23:15 23:33 23:42 Temperature 98.3 F Pulse Rate 93 Respiratory 18 18 18 Rate Blood Pressure 128/61 (mmHg) O2 Sat by Pulse 94 Oximetry 02/03/17 02/03/17 02/03/17 02:49 04:18 04:40 Temperature 97.3 F Pulse Rate 89 Respiratory 22 19 18 Rate Blood Pressure 134/67 (mmHg) O2 Sat by Pulse 93 Oximetry 02/03/17 02/03/17 02/03/17 05:41 05:47 07:26 Temperature Pulse Rate 90 Respiratory 20 18 16 Rate Blood Pressure (mmHg) O2 Sat by Pulse 95 Oximetry 02/03/17 02/03/17 02/03/17 07:49 08:00 10:43 Temperature 98.5 F Pulse Rate 96 Respiratory 22 22 19 Rate Blood Pressure 133/67 (mmHg) O2 Sat by Pulse 96 Oximetry 02/03/17 02/03/17 13:13 13:27 Temperature Pulse Rate Respiratory 18 20 Rate Blood Pressure (mmHg) O2 Sat by Pulse Oximetry Oxygen Devices in Use Now: Nasal Cannula Appearance: short of breath but not in distress Eyes: No Scleral Icterus, PERRLA Ears/Nose/Mouth/Throat: Clear Oropharnyx, Mucous Membranes Moist Neck: NL Appearance and Movements; NL JVP, Trachea Midline Respiratory: Symmetrical Chest Expansion and Respiratory Effort, - - wheezes throughout, rales in bases, Cardiovascular: RRR Abdominal: NL Sounds; No Tenderness; No Distention, No Hepatosplenomegaly Lymphatic: No Cervical Adenopathy Extremities: No Edema Skin: No Rash or Ulcers Neurological: Alert and Oriented x 3 Result Diagrams: 02/03/17 11:32 02/03/17 11:32 Additional Lab and Data: Lab Results 01/30/17 01/30/17 01/30/17 Range/Units 11:45 11:45 11:45 WBC 12.8 H (3.5-10.8) 10^3/ul RBC 4.37 (4.0-5.4) 10^6/ul Hgb 11.0 L (12.0-16.0) g/dl Hct 35 (35-47) % MCV 80 (80-97) fL MCH 25 L (27-31) pg MCHC 32 (31-36) g/dl RDW 18 H (10.5-15) % Plt Count 182 (150-450) 10^3/ul MPV 7 L (7.4-10.4) um3 Neut % (Auto) 81.5 (38-83) % Lymph % (Auto) 10.0 L (25-47) % [place] % (Auto) 7.7 (1-9) % Eos % (Auto) 0.6 (0-6) % Baso % (Auto) 0.2 (0-2) % Absolute Neuts (auto) 10.5 H (1.5-7.7) 10^3/ul Absolute Lymphs (auto) 1.3 (1.0-4.8) 10^3/ul Absolute Monos (auto) 1.0 H (0-0.8) 10^3/ul Absolute Eos (auto) 0.1 (0-0.6) 10^3/ul Absolute Basos (auto) 0 (0-0.2) 10^3/ul Absolute Nucleated RBC 0.01 10^3/ul Nucleated RBC % 0.1 ESR Pending Sodium 142 (133-145) mmol/L Potassium 3.6 (3.5-5.0) mmol/L Chloride 96 L (101-111) mmol/L Carbon Dioxide 37 H (22-32) mmol/L Anion Gap 9 (2-11) mmol/L BUN 15 (6-24) mg/dL Creatinine 0.84 (0.51-0.95) mg/dL Est GFR ( Amer) 84.6 (>60) Est GFR (Non-Af Amer) 65.7 (>60) BUN/Creatinine Ratio 17.9 (8-20) Glucose 120 H (70-100) mg/dL Lactic Acid 2.7 H* (0.5-2.0) mmol/L Calcium 9.8 (8.6-10.3) mg/dL Magnesium 2.0 (1.9-2.7) mg/dL Total Bilirubin 0.80 (0.2-1.0) mg/dL AST 28 (13-39) U/L ALT 36 (7-52) U/L Alkaline Phosphatase 170 H (34-104) U/L Total Creatine Kinase 36 (10-223) U/L Myoglobin 37.0 (14.3-65.8) ng/mL Troponin I 0.03 (<0.04) ng/mL C-React Prot High Sens 67.76 mg/L Total Protein 7.3 (6.4-8.9) g/dL Albumin 4.0 (3.2-5.2) g/dL Globulin 3.3 (2-4) g/dL Albumin/Globulin Ratio 1.2 (1-3) TSH Pending Microbiology and Other Data: Microbiology 01/30/17 22:25 Nasal Screen MRSA (PCR)(CHANG) - Final Nasal Mrsa Negative Assess/Plan/Problems-Billing Assessment: 76 yo F h/o advanced COPD on O2 and chronic steroids, chf with recent PNA p/w fall found with sacral ala fracture and hypoxic respiratory failure in setting of PNA - Patient Problems (1) Acute on chronic respiratory failure with hypoxemia Comment: Secondaryto PNA with underlying COPD Vapotherm weaned off 01/31. Transfer to 4N 02/01 Zosyn (3days) transitions to levaquin 02/03 lasix 40IV 02/03 (2) Parkinson disease Comment: sinemet (3) Sacral insufficiency fracture with routine healing Comment: WBAT norco changed to percocet 02/03, added motrin lidocaine patch Add tramadol 02/02 (4) COPD (chronic obstructive pulmonary disease) Comment: prednisone 20mg tapered to 10mg starting 02/04 dulera, sinulair Prednisone listed as home medication but patient denies it was a home medication. This has not been confirmed (5) HTN (hypertension) Comment: clonidine, losartan lasix (6) DVT prophylaxis Comment: Lovenox
[2017-02-03] MEDS: Mirtazapine TAB* 15 MG PO SCH (21:39)
[2017-02-03] MEDS: CMC: Melatonin (NF) 3 MG TAB PO SCH (21:40)
[2017-02-03] MEDS: Montelukast Sodium TAB* 10 MG PO SCH (21:40)
[2017-02-03] MEDS: Lidocaine Patch REMOVE* 1 NOTE MISC SCH (21:57)
[2017-02-04] MEDS: traMADol TAB* 50 MG PO PRN ×3 (02:27→15:26)
[2017-02-04] MEDS: Ibuprofen TAB* 200 MG PO SCH ×3 (03:52→15:25)
[2017-02-04] MEDS: oxyCODONE/Acetamin 5/325 MG* TAB PO PRN ×3 (05:27→12:08)
[2017-02-04] MEDS: Carbidopa/Levodop 25/100 MG TAB(*) PO SCH ×2 (06:05→12:09)
[2017-02-04] MEDS: cloNIDine TAB* 0.1 MG PO SCH ×2 (06:05→15:36)
[2017-02-04] MEDS: Mometasone/Formoter 100/5 MDI INH SCH (07:46)
[2017-02-04] MEDS ORDERED: Levofloxacin TAB* 750 MG PO SCH (09:00)
[2017-02-04] MEDS ORDERED: predniSONE TAB* 10 MG PO SCH (09:00)
[2017-02-04] MEDS: Sertraline* 100 MG TAB PO SCH (09:02)
[2017-02-04] MEDS: Losartan TAB* 25 MG PO SCH (09:03)
[2017-02-04] MEDS: Pyridoxine TAB* 50 MG PO SCH (09:03)
[2017-02-04] MEDS: Furosemide TAB* 40 MG PO SCH (09:03)
[2017-02-04] MEDS: Multivitamins/Minerals TAB PO SCH (09:05)
[2017-02-04] MEDS: Cyanocobalamin TAB* 500 MCG PO SCH (09:05)
[2017-02-04] MEDS: Folic Acid TAB* 1 MG PO SCH (09:05)
[2017-02-04] MEDS: Enoxaparin(*) 40 MG/0.4 ML SYR SUBCUT SCH (09:07)
[2017-02-04] MEDS: Lidocaine PATCH 5%* 1 PATCH TRANSDERM SCH (09:11)
[2017-02-04] MEDS: Polyethylene Glycol 3350* 17 GM PACKET PO SCH (09:11)
[2017-02-04 11:52] VITALS: BP 109/65
--- NOTE | 2017-02-04 13:42 | PN ---
Progress Note - Progress Note Date of Service: 02/04/17 SOAP: Subjective: []Patient seen at bedside. She reports continued pain that is slightly improved from yesterday. She continues to report subjective shortness of breath. She did walk to the restroom for the first time today. Loose stools and right foot sensory abnormality have resolved. Objective: [] Vital Signs Temp 98.0 F 02/04/17 11:36 Pulse 88 02/04/17 11:36 Resp 18 02/04/17 15:26 BP 109/65 02/04/17 11:36 Pulse Ox 94 02/04/17 11:36 Intake & Output 02/03/17 02/04/17 02/04/17 18:59 06:59 18:59 Intake Total 653 400 880 Balance 653 400 880 Intake: IV Fluids 78 0 NS (0.9%) 78 0 IVPB 375 ZOsyn 375 Oral 200 400 880 Other: Estimated Void Small Medium # Bowel Movements 0 1 Estimated Stool Amount Medium Medium # Voids 1 2 1 Laboratory Last Values WBC 11.8 10^3/ul (3.5-10.8) H 02/03/17 11:32 RBC 4.41 10^6/ul (4.0-5.4) 02/03/17 11:32 Hgb 11.1 g/dl (12.0-16.0) L 02/03/17 11:32 Hct 35 % (35-47) 02/03/17 11:32 MCV 80 fL (80-97) 02/03/17 11:32 MCH 25 pg (27-31) L 02/03/17 11:32 MCHC 32 g/dl (31-36) 02/03/17 11:32 RDW 19 % (10.5-15) H 02/03/17 11:32 Plt Count 204 10^3/ul (150-450) 02/03/17 11:32 MPV 7 um3 (7.4-10.4) L 02/03/17 11:32 Neut % (Auto) 80.3 % (38-83) 02/03/17 11:32 Lymph % (Auto) 10.9 % (25-47) L 02/03/17 11:32 [place] % (Auto) 7.3 % (1-9) 02/03/17 11:32 Eos % (Auto) 1.1 % (0-6) 02/03/17 11:32 Baso % (Auto) 0.4 % (0-2) 02/03/17 11:32 Absolute Neuts (auto) 9.4 10^3/ul (1.5-7.7) H 02/03/17 11:32 Absolute Lymphs (auto) 1.3 10^3/ul (1.0-4.8) 02/03/17 11:32 Absolute Monos (auto) 0.9 10^3/ul (0-0.8) H 02/03/17 11:32 Absolute Eos (auto) 0.1 10^3/ul (0-0.6) 02/03/17 11:32 Absolute Basos (auto) 0 10^3/ul (0-0.2) 02/03/17 11:32 Absolute Nucleated RBC 0.01 10^3/ul 02/03/17 11:32 Nucleated RBC % 0 02/03/17 11:32 ESR 32 mm/Hr (0-40) 01/30/17 11:45 D-Dimer, Quantitative > 1050 ng/mL (Less Than 230) H 01/30/17 11:45 Patient Temperature Not Reportable 01/30/17 16:00 ABG pH 7.40 (7.35-7.45) 01/30/17 16:00 ABG pH (Temp Correct) Not Reportable 01/30/17 16:00 ABG pCO2 62 mmHg (35-45) H 01/30/17 16:00 ABG pCO2 (Temp Corrct Not Reportable 01/30/17 16:00 ABG pO2 164 mmHg (80-100) H 01/30/17 16:00 ABG pO2 (Temp Correct Not Reportable 01/30/17 16:00 ABG HCO3 33.9 mmol/L (19-31) H 01/30/17 16:00 ABG O2 Saturation 99.9 % (95-98) H 01/30/17 16:00 ABG Base Excess 11.5 (-2.0-2.0) H 01/30/17 16:00 Respiration Rate Not Reportable 01/30/17 16:00 O2 Delivery Device nasal cannula 01/30/17 16:00 Ventilator Type Not Reportable 01/30/17 16:00 Vent Mode Not Reportable 01/30/17 16:00 FiO2 4 01/30/17 16:00 Inspiratory Time Not Reportable 01/30/17 16:00 PEEP Not Reportable 01/30/17 16:00 Pressure Support Not Reportable 01/30/17 16:00 Pressure Control Not Reportable 01/30/17 16:00 EPAP Not Reportable 01/30/17 16:00 IPAP Not Reportable 01/30/17 16:00 BiPAP Not Reportable 01/30/17 16:00 Sodium 142 mmol/L (133-145) 02/03/17 11:32 Potassium 2.9 mmol/L (3.5-5.0) L 02/03/17 11:32 Chloride 96 mmol/L (101-111) L 02/03/17 11:32 Carbon Dioxide 38 mmol/L (22-32) H 02/03/17 11:32 Anion Gap 8 mmol/L (2-11) 02/03/17 11:32 BUN 15 mg/dL (6-24) 02/03/17 11:32 Creatinine 0.83 mg/dL (0.51-0.95) 02/03/17 11:32 Est GFR ( Amer) 85.7 (>60) 02/03/17 11:32 Est GFR (Non-Af Amer) 66.7 (>60) 02/03/17 11:32 BUN/Creatinine Ratio 18.1 (8-20) 02/03/17 11:32 Glucose 102 mg/dL (70-100) H 02/03/17 11:32 Lactic Acid 1.4 mmol/L (0.5-2.0) 01/30/17 17:10 Calcium 9.9 mg/dL (8.6-10.3) 02/03/17 11:32 Magnesium 2.0 mg/dL (1.9-2.7) 01/30/17 11:45 Total Bilirubin 0.80 mg/dL (0.2-1.0) 01/30/17 11:45 AST 28 U/L (13-39) 01/30/17 11:45 ALT 36 U/L (7-52) 01/30/17 11:45 Alkaline Phosphatase 170 U/L (34-104) H 01/30/17 11:45 Total Creatine Kinase 30 U/L (10-223) 01/30/17 17:10 Myoglobin 37.0 ng/mL (14.3-65.8) 01/30/17 11:45 Troponin I 0.03 ng/mL (<0.04) 01/30/17 11:45 C-React Prot High Sens 67.76 mg/L 01/30/17 11:45 B-Natriuretic Peptide 62 pg/mL (-100) 01/30/17 11:45 Total Protein 7.3 g/dL (6.4-8.9) 01/30/17 11:45 Albumin 4.0 g/dL (3.2-5.2) 01/30/17 11:45 Globulin 3.3 g/dL (2-4) 01/30/17 11:45 Albumin/Globulin Ratio 1.2 (1-3) 01/30/17 11:45 TSH 9.05 mcIU/mL (0.34-5.60) H 01/30/17 11:45 Free T4 0.80 ng/dL (0.61-1.12) 01/30/17 11:45 Free T3 3.80 pg/mL (2.5-3.9) 01/30/17 11:45 Urine Color Yellow 01/31/17 07:00 Urine Appearance Clear 01/31/17 07:00 Urine pH 6.0 (5-9) 01/31/17 07:00 Ur Specific [place] > 1.060 (1.010-1.030) H 01/31/17 07:00 Urine Protein 1+(30 mg/dl) (Negative) H 01/31/17 07:00 Urine Ketones Negative (Negative) 01/31/17 07:00 Urine Blood 3+ (Negative) H 01/31/17 07:00 Urine Nitrate Negative (Negative) 01/31/17 07:00 Urine Bilirubin Negative (Negative) 01/31/17 07:00 Urine Urobilinogen Negative (Negative) 01/31/17 07:00 Ur Leukocyte Esterase Negative (Negative) 01/31/17 07:00 Urine WBC (Auto) Trace(0-5/hpf) (Absent) 01/31/17 07:00 Urine RBC (Auto) 3+(>10/hpf) (Absent) H 01/31/17 07:00 Urine Bacteria Absent (Absent) 01/31/17 07:00 Urine Glucose Negative (Negative) 01/31/17 07:00 Urine Ascorbic Acid * (Negative) H 01/31/17 07:00 General: Lying on left side in bed. Appears more comfortable than yesterday. Is calm and cooperative. MSK: Tender to palpation throughout right low back and right buttock. No midline tenderness. DF/PF intact bilaterally Vasc: 2+ DP/PT Neuro: Sensation intact throughout lower extremities to light touch. Skin: No ecchymosis, rash or lesions over above noted tender area. Assessment: []Right sacral ala fracture Plan: []Encouraged patient to increase activity, WBAT with walker/ assistance Follow up with Dr. Can outpatient Will DC to [facility] 02/04/17
--- NOTE | 2017-02-04 15:21 | TRS ---
CC: Lenora Cao * TRANSFER SUMMARY: DATE OF TRANSFER: 02/04/17. HISTORY: This 76-year-old woman presented after a fall the day before admission. She was in the nursing facility and had a mechanical fall in the bathroom. She laid on the floor about 30 minutes before someone came to assist her, and that she had a fall with a right hip fracture resulting in ORIF in October 2016. At the rehab facility then she fell and injured the right greater trochanter and was readmitted to [facility] in November of 2016. The rest of the history and physical exam was detailed in the admission note. CT scan revealed a right sacral ala fracture. She had limited mobility due to pain. However, she tends to refuse pain medication and overall maintains a good disposition. I note the patient is treated for Parkinson's disease, COPD, and hypothyroidism. She did receive treatments for pneumonia with first piperacillin and tazobactam followed by levofloxacin, I would give her 2 more days of levofloxacin as an outpatient. FINAL DIAGNOSES: 1. Acute on chronic respiratory failure with hypoxemia due to pneumonia. 2. Parkinson's disease. 3. Sacral fracture. 4. Chronic obstructive pulmonary disease. 5. Hypertension. DISCHARGE MEDICATIONS: 1. Albuterol/ipratropium by nebulizer every 2 hours p.r.n. 2. Ibuprofen 600 mg every 6 hours p.r.n. 3. Levofloxacin 750 mg daily for 2 days. 4. Lidocaine patch daily p.r.n., on for 12 hours off for 12 hours. 5. Oxycodone/acetaminophen 5/325, 2 every 4 hours p.r.n. 6. Cholecalciferol 1000 units daily. 7. Prednisone 10 mg daily. 8. Oxycodone 5 mg every 4 hours p.r.n. 9. Chloraseptic throat lozenges 1 to 2 every 4 hours p.r.n. 10. Acetaminophen 650 mg every 4 hours p.r.n. 11. Senna 2 tablets daily p.r.n. 12. Lorazepam 0.5 mg every 8 hours p.r.n. 13. Magnesium hydroxide. 14. Milk of magnesia 30 mL h.s. p.r.n. constipation. 15. Glycerin suppository daily p.r.n. 16. Montelukast 10 mg daily. 17. Mirtazapine 7.5 mg h.s. 18. Carbidopa-levodopa 25/100 1 tablet at 7:00 a.m., 1:00 p.m., and 8:00 p.m. 19. Ipratropium inhaler 2 puffs at 7:00 a.m., 1:00 p.m., and 8:00 p.m. 20. Clonidine 0.1 mg at 0700 and 1400. 21. Sertraline 100 mg b.i.d. 22. Fluticasone and salmeterol 100/50 one puff b.i.d. 23. Pyridoxine 25 mg daily. 24. Vitamin B12 1000 mcg daily. 25. Polyethylene glycol 3350 17 g daily. 26. Losartan 25 mg daily. 27. Furosemide 40 mg daily. 28. Folic acid 1 mg daily. The patient is being transferred to [facility]. [id number]/[facility] #: [id number] MTDD
== END 2017-02-04 18:00 | DRG 551 ==
LOC: ED 11:05 → MED 12:50 → ICU 16:11 → INTOOBSV 18:09 → OBSVTOIN 18:09 → MED 02-01 19:25
PROVIDERS: ADMIT Internal Medicine; ATTEND Internal Medicine
DX: S32.10XA Unspecified fracture of sacrum, initial encounter for closed fracture (principal); J96.21 Acute and chronic respiratory failure with hypoxia; I11.0 Hypertensive heart disease with heart failure; E87.2 Acidosis; J18.9 Pneumonia, unspecified organism; I50.22 Chronic systolic (congestive) heart failure; G20 Parkinson's disease; Z99.81 Dependence on supplemental oxygen; W18.30XA Fall on same level, unspecified, initial encounter; J44.9 Chronic obstructive pulmonary disease, unspecified; Z96.653 Presence of artificial knee joint, bilateral; Z96.641 Presence of right artificial hip joint; M50.30 Other cervical disc degeneration, unspecified cervical region; E66.9 Obesity, unspecified; F32.9 Major depressive disorder, single episode, unspecified; E03.9 Hypothyroidism, unspecified; F41.1 Generalized anxiety disorder; Z66 Do not resuscitate; Z93.3 Colostomy status; Z90.49 Acquired absence of other specified parts of digestive tract; Y92.121 Bathroom in nursing home as the place of occurrence of the external cause; Z68.32 Body mass index [BMI] 32.0-32.9, adult; Z88.5 Allergy status to narcotic agent; Z88.8 Allergy status to other drugs, medicaments and biological substances; Z91.041 Radiographic dye allergy status; Z79.52 Long term (current) use of systemic steroids
CPT/HCPCS: 36415; 70450; 71010; 71275; 72125; 72192; 80048; 80053; 81003; 81015; 82550; 82803; 83605; 83735; 83874; 83880; 84439; 84443; 84481; 84484; 85025; 85379; 85652; 86141; 87641; 93005; 94640; 94760; A9270-GY; G0378; J1650; J1940; J2405; J2543; J3010; J7512; J7644; Q9967

== ENCOUNTER 2017-02-16 14:22 | Inpatient (IN) | payer MEDICARE ==
[2017-02-16] MEDS ORDERED: Ondansetron INJ* 2 MG/ML VIAL IV ONE (15:14)
[2017-02-16] MEDS ORDERED: fentaNYL* 50 MCG/ML 2 ML VIAL (100 MCG VIAL) IV SLOW PU ONE (15:15)
[2017-02-16 15:36] LABS: FIO2 3
[2017-02-16 15:39] LABS: PCO2 Arterial 61 mmHg (35-45)
[2017-02-16 16:14] LABS: Hematocrit 36 % (35-47); Hemoglobin 11.6 g/dl (12.0-16.0); Mean Corpuscular HGB Conc 33 g/dl (31-36); Mean Corpuscular Hemoglobin 26 pg (27-31); Mean Corpuscular Volume 79 fL (80-97); Mean Platelet Volume 7 um3 (7.4-10.4); Red Blood Count 4.53 10^6/ul (4.0-5.4); Red Cell Distribution Width 18 % (10.5-15)
--- NOTE | 2017-02-16 16:23 | RAD ---
INDICATION: Short of breath COMPARISON: January 30, 2017 TECHNIQUE: A single PA view is submitted. FINDINGS: Bones/Soft Tissues: There are no acute bony findings. Cardiomediastinal: The cardiac silhouette is enlarged. Central pulmonary vessels and interstitium are prominent compatible with vascular congestion. There is mild worsening. Lungs: Diffuse interstitial change consistent with interstitial edema. Pleura: There are no pleural effusions. Other: None IMPRESSION: MODERATE VASCULAR CONGESTIVE FINDINGS.
--- NOTE | 2017-02-16 16:24 | RAD ---
INDICATION: Right hip pain COMPARISON: None TECHNIQUE: An AP view of the pelvis and AP and crosstable lateral views of the right hip in neutral and abducted position were obtained FINDINGS: Bones: There are no acute bony findings. There is right hip arthroplasty. The prosthesis appears well seated Joint spaces: The left hip articulates normally.. SI joints/symphysis: The SI joints and symphysis are intact. Other: None IMPRESSION: RIGHT HIP ARTHROPLASTY. NO EVIDENCE OF HARDWARE FAILURE.
[2017-02-16 16:28] LABS: Troponin I 0.02 ng/mL (<0.04)
[2017-02-16 16:37] LABS: Albumin 4.1 g/dL (3.2-5.2); C Reactive Protein 18.71 mg/L (< 5.00); Calcium 9.2 mg/dL (8.6-10.3); EGFR African American 79.1 (>60); EGFR Non-African American 61.5 (>60); Globulin 3.3 g/dL (2-4); Potassium 3.9 mmol/L (3.5-5.0); Total Bilirubin 0.4 mg/dL (0.2-1.0); Total Protein 7.4 g/dL (6.4-8.9)
[2017-02-16 17:09] LABS: FIO2 3
[2017-02-16 17:12] LABS: PCO2 Arterial 55 mmHg (35-45)
[2017-02-16] MEDS ORDERED: methylPREDNISolone 125 MG* 2 ML VIAL IV ONE (17:53)
[2017-02-16] MEDS ORDERED: Albuterol/Ipratropium NEB.SOL* Albuterol 2.5 MG/Ipratropium 0.5 MG 3 ML INH ONE (17:53)
[2017-02-16] MEDS ORDERED: Magnesium Hydroxide LIQ* 30 ML UDC PO PRN (18:48)
[2017-02-16] MEDS ORDERED: Polyethylene Glycol 3350* 17 GM PACKET PO PRN (18:48)
[2017-02-16] MEDS ORDERED: Senna TAB PO PRN (18:48)
[2017-02-16] MEDS ORDERED: Albuterol/Ipratropium NEB.SOL* Albuterol 2.5 MG/Ipratropium 0.5 MG 3 ML ONE (20:45)
[2017-02-16] MEDS: Albuterol/Ipratropium NEB.SOL* Albuterol 2.5 MG/Ipratropium 0.5 MG 3 ML INH SCH (20:47)
[2017-02-16] MEDS: Sertraline* 100 MG TAB PO SCH (22:10)
[2017-02-16] MEDS: Azithromycin TAB* 250 MG PO ONE ×2 (22:11→22:37)
[2017-02-16] MEDS: Montelukast Sodium TAB* 10 MG PO SCH (22:11)
[2017-02-16] MEDS: oxyCODONE TAB* 5 MG TAB PO PRN (22:11)
[2017-02-16] MEDS: Diazepam TAB(*) 2 MG PO PRN (22:12)
[2017-02-16] MEDS: Carbidopa/Levodop 25/100 MG TAB(*) PO SCH (22:12)
[2017-02-16] MEDS: Mirtazapine TAB* 15 MG PO SCH (22:13)
[2017-02-16] MEDS: Heparin VIAL(*) 5000 UNITS/ML VIAL (FIVE THOUSAND) SUBCUT SCH (22:14)
[2017-02-16] MEDS: fentaNYL PATCH 12 MCG/HR TRANSDERM SCH ×2 (22:17→23:34)
[2017-02-16] MEDS: Acetaminophen TAB* 325 MG PO SCH (22:44)
--- NOTE | 2017-02-16 23:17 | HP ---
HISTORY AND PHYSICAL: DATE OF ADMISSION: 02/16/17 ADMITTING PROVIDER: Ty Kate MD Primary Care Physician: Dr. Self at [facility] CHIEF COMPLAINT: Right-sided hip and sacrum pain; chronic hypoxic respiratory failure. HISTORY OF PRESENT ILLNESS: June Blackman is a 76-year-old female, PMH as above, with multiple recent falls, initially presented to the emergency room on 01/30/17 after a fall at intermediate in her bathroom, it was a mechanical fall , laid on the ground for 30 minutes. This was after she was noncompliant with nonweightbearing status in the setting of a fall of November 2016, for which she was at the [facility]. She was status post open reduction internal fixation of her right hip at that time at [facility] and discharged to short- term rehab on 11/02/16. She had a fall at that facility and again was transported on to [facility], where it seems like the patient declined to have a surgical procedure and was treated conservatively and then resided at [facility] since 12/14/16. The patient was then admitted to [facility] on 11/30/16 where she had a CT scan that revealed a right sacral ala fracture that was nonoperative and Dr. Nito Can recommended her to be weightbearing as tolerated with a walker and that it might could take up to 6 to 8 weeks for this to heal. So, reasons for admission are slightly unclear as the patient is a poor historian saying the main reason is her right hip pain. The [facility] documentation states that they were concerned about her tachycardia, breathing quickly with some difficulty breathing, had some mild dyspnea. The patient in the emergency room was noted to be tachycardic to 116, afebrile 98.3, blood pressure is 112/74, satting high 90s on her chronic 3 L oxygen. Laboratory evaluation was significant for a white count of 17.0, hemoglobin of 11.6, bicarb of 35, lactic acidosis of 2.5, CRP of 18.7, alk phos of 280. Her chest x-ray demonstrated moderate vascular congestive findings. Her hip/pelvis x-ray demonstrated right hip arthroplasty, no evidence of hardware failure. PAST MEDICAL HISTORY: Parkinson's disease, sacral fracture, COPD, hypertension , chronic respiratory failure, and recent acute on chronic failure secondary to pneumonia. PAST SURGICAL HISTORY: Bilateral knee replacements, right total hip replacement , Shawanda's procedure. MEDICATIONS: Include: 1. Tylenol 1000 mg p.o. q.8 hours for pain with additional 650 mg q.4 hours p.r.n. for pain. 2. Advair Diskus 1 inhaled orally 2 times daily for COPD. 3. Atrovent HFA 2 puffs inhaled orally 3 times a day for COPD. 4. Carbidopa/levodopa 25/100 mg p.o. t.i.d. 5. Cholecalciferol 1000 units p.o. daily. 6. Clonidine 0.1 mg b.i.d. 7. Valium 2 mg every 6 hours as needed for anxiety or spasms. 8. DuoNeb every 4 hours as needed for shortness of breath or wheezing. 9. Fentanyl patch 12 mcg every 72 hours for pain. 10. Folic acid 1 mg every day. 11. Lasix 40 mg by mouth daily. 12. Glycerin Adult Suppository every 24 hours as needed. 13. Ibuprofen 600 mg every 6 hours as needed. 14. Lidocaine patch 5% to right buttocks topically every 12 hours as needed. 15. Losartan 25 mg daily. 16. Milk of magnesia 30 mL every day. 17. Remeron 7.5 mg q.h.s. for depression. 18. Montelukast sodium 10 mg daily. 19. Oxycodone 5 to 10 mg every 4 hours as needed for pain. 20. Polyethylene glycol 17 g every 24 hours. 21. Potassium chloride 20 mEq extended release daily. 22. Prednisone 10 mg once a day starting 02/23/17 with taper, currently at 40 mg until 02/18/17. 23. Senokot tablet, 2 tabs every 24 hours as needed for constipation. 24. Sertraline 100 mg twice a day for depression. 25. Vitamin B12 1000 mcg daily. 26. Vitamin B6 25 mg daily. ALLERGIES: ASPIRIN, MORPHINE, IODINE. FAMILY HISTORY: Mother with heart attack. Father assumingly of natural causes at age 93. SOCIAL HISTORY: She is a nonsmoker. Denies any drinking. She states her medical proxy is her , Domenic Blackman, of [place], [place]. REVIEW OF SYSTEMS: Complete 14-point review of systems negative except as per HPI. Denies fevers, chills, nausea, vomiting, diarrhea, constipation. Main complaints are her right-sided hip pain ever since her last fall. Has a dry cough. PHYSICAL EXAMINATION GENERAL: No acute distress, but with movement does wince with pain. HEENT: Normocephalic, atraumatic. Pupils equal, round, and reactive to light. Extraocular motions intact. Oral mucosa moist. NECK: Supple. No cervical lymphadenopathy. LUNGS: Some wheezing expiratory (no rhonchi or rales), slightly tachypneic. CARDIAC: Regular rate and rhythm. No murmurs, rubs, or gallops. No peripheral edema noted. ABDOMEN: Soft, nontender, nondistended. No Madrigal's sign. No rebound or guarding. EXTREMITIES: Warm and well perfused. No peripheral edema. Some pain with palpation of right hip. NEURO: Moving all extremities. Oriented to person, did know the year; oriented x2. Thinks she is in [facility]. SKIN: No lesions. DIAGNOSTIC STUDIES/LAB DATA: White count 17.0, hemoglobin 11.6, hematocrit 36 , platelets 341. Sodium 142, potassium 3.9, chloride 98, carbon dioxide 35, BUN 24, creatinine 0.89, glucose 144, lactic acid 2.4. Alk phos 280. CRP 18.7. Influenza A and B negative. Imaging: As per HPI. ASSESSMENT AND PLAN: The patient is a 76-year-old female with multiple recent falls, presenting with continued right-sided pain, chronic hypoxic respiratory failure, which seems at baseline and some tachycardia. ED physician was concerned for pulmonary embolism and a V/Q scan was ordered. Of note, the patient did have a CT chest angiogram during last admission, which was negative for PE; that study was 01/31/17. We will continue her treatments for chronic obstructive pulmonary disease with steroids, she got 125 mg of Solu-Medrol in the emergency room. It is not clear that she is off her baseline, but she is also a poor historian. We will rapidly taper the steroids down; she was on 40 prednisone as outpatient. We will continue DuoNebs q.4 hours scheduled and q.2 hours p.r.n. Start her on azithromycin. She is afebrile. She does have risk factors of decreased mobility. For evaluation of pulmonary embolism, we will follow up with a V/Q scan, but hold off on empiric therapeutic anticoagulation. We will continue her Lasix for now. She seems relatively euvolemic, no rales on exam, although her chest x-ray was read as having some vascular congestion. Continue Lasix 40 mg p.o. daily. BNP was within normal limits at 32. We will start azithromycin for chronic obstructive pulmonary disease exacerbation. We will continue her chronic pain meds that she has been using for her right-sided pain. She has a nonoperative sacral fracture, recently diagnosed within last [address] per Dr[address] Nito Can's note, can take up to 6 to 8 weeks to heal. We will order physical therapy, occupational therapy, and she does not have any evidence of any new fractures - hip/pelvis x-ray demonstrated that as well. No falls noted in the documentation since discharge to [facility]. We will hold her antihypertensives to the morning as her blood pressures are relatively soft. Her kidney function is at her baseline. For her Parkinson's disease, we will continue her carbidopa/levodopa 25/100 mg t.i.d. Continue Singulair and for her constipation, p.r.n.'s. Follow up blood culture, sputum culture, and urinalysis obtained in the emergency room. She is being admitted to medicine inpatient, will likely need return to shelter facility given her continued falls and inability to take care of herself. She is a DNR/ DNI. She will be put on a heart-healthy diet. We will start heparin for DVT prophylaxis 5000 units t.i.d. [id number]/[facility] #: [id number] JEN
[2017-02-17] MEDS: LORazepam TAB(*) 1 MG PO PRN (00:14)
[2017-02-17] MEDS: Ibuprofen TAB* 600 MG PO PRN ×2 (00:17→23:11)
[2017-02-17] MEDS: Albuterol/Ipratropium NEB.SOL* Albuterol 2.5 MG/Ipratropium 0.5 MG 3 ML INH SCH ×4 (01:47→20:17)
[2017-02-17] MEDS: oxyCODONE TAB* 5 MG TAB PO PRN ×4 (01:59→20:39)
[2017-02-17] MEDS: Heparin VIAL(*) 5000 UNITS/ML VIAL (FIVE THOUSAND) SUBCUT SCH ×3 (06:02→20:39)
[2017-02-17] MEDS: Acetaminophen TAB* 325 MG PO SCH ×3 (06:02→20:39)
[2017-02-17 07:55] LABS: Hematocrit 34 % (35-47); Hemoglobin 10.6 g/dl (12.0-16.0); Mean Corpuscular HGB Conc 31 g/dl (31-36); Mean Corpuscular Hemoglobin 25 pg (27-31); Mean Corpuscular Volume 80 fL (80-97); Mean Platelet Volume 8 um3 (7.4-10.4); Red Blood Count 4.21 10^6/ul (4.0-5.4); Red Cell Distribution Width 19 % (10.5-15); White Blood Count 17.5 10^3/ul (3.5-10.8)
[2017-02-17 08:05] LABS: BUN/Creatinine Ratio 27.3 (8-20); EGFR African American 80.1 (>60); EGFR Non-African American 62.3 (>60); Potassium 4.2 mmol/L (3.5-5.0)
[2017-02-17] MEDS: Losartan TAB* 25 MG PO SCH (08:07)
[2017-02-17] MEDS: cloNIDine TAB* 0.1 MG PO SCH ×2 (08:07→16:19)
[2017-02-17] MEDS: predniSONE TAB* 20 MG PO SCH (08:07)
[2017-02-17] MEDS: Sertraline* 100 MG TAB PO SCH ×2 (08:07→20:40)
[2017-02-17] MEDS: Folic Acid TAB* 1 MG PO SCH (08:08)
[2017-02-17] MEDS: Carbidopa/Levodop 25/100 MG TAB(*) PO SCH ×3 (08:08→20:45)
[2017-02-17] MEDS: Cholecalciferol TAB* 1000 UNITS PO SCH (08:08)
[2017-02-17] MEDS: Cyanocobalamin TAB* 500 MCG PO SCH (08:08)
[2017-02-17] MEDS: Lidocaine PATCH 5%* 1 PATCH TRANSDERM SCH (08:30)
[2017-02-17] MEDS ORDERED: Furosemide TAB* 40 MG PO SCH (09:00)
[2017-02-17] MEDS: Diazepam TAB(*) 2 MG PO PRN (13:44)
--- NOTE | 2017-02-17 18:53 | PN ---
Subjective Date of Service: 02/17/17 Interval History: Pt states felt better this AM. However got tachypneic lying flat and v/q scan was cancelled. Leukocytosis persists. lasix po changed to bumex IV. Objective Active Medications: Acetaminophen (Tylenol Tab*) 975 mg PO Q8HR [facility] Last Admin: 02/17/17 14:34 Dose: 975 mg Albuterol/Ipratropium (Duoneb (Albuterol 2.5 Mg/Ipratropium 0.5 Mg)) 1 neb INH Q6H [facility] Last Admin: 02/17/17 13:06 Dose: 1 neb Bumetanide (Bumex*) 1 mg SLOW PUSH BID [facility] Carbidopa/Levodopa (Sinemet 25/100 Tab(*)) 1 tab PO 0700,1300,2000 [facility] Last Admin: 02/17/17 13:41 Dose: 1 tab Cholecalciferol (Vitamin D Tab*) 1,000 units PO DAILY [facility] Last Admin: 02/17/17 08:08 Dose: 1,000 units Clonidine HCl (Catapres Tab*) 0.1 mg PO 0700,1600 [facility] Last Admin: 02/17/17 16:19 Dose: 0.1 mg Cyanocobalamin (Vitamin B12 Tab*) 1,000 mcg PO DAILY [facility] Last Admin: 02/17/17 08:08 Dose: 1,000 mcg Diazepam (Valium Tab(*)) 2 mg PO Q6HR PRN PRN Reason: ANXIETY Last Admin: 02/17/17 13:44 Dose: 2 mg Fentanyl (Duragesic Patch 12 Mcg/Hr *) 12 mcg TRANSDERM Q72H [facility] Last Admin: 02/16/17 23:34 Dose: 12 mcg Folic Acid (Folvite Tab*) 1 mg PO DAILY [facility] Last Admin: 02/17/17 08:08 Dose: 1 mg Heparin Sodium (Porcine) (Heparin Vial(*)) 5,000 units SUBCUT Q8HR [facility] Last Admin: 02/17/17 14:31 Dose: 5,000 units Ibuprofen (Motrin Tab*) 600 mg PO Q6H PRN PRN Reason: PAIN Last Admin: 02/17/17 00:17 Dose: 600 mg Lidocaine (Lidoderm 5% Patch*) 1 patch TRANSDERM DAILY [facility] Last Admin: 02/17/17 08:30 Dose: 1 patch Lorazepam (Ativan Tab(*)) 1 mg PO BEDTIME PRN PRN Reason: ANXIETY Last Admin: 02/17/17 00:14 Dose: 1 mg Losartan Potassium (Cozaar Tab*) 25 mg PO DAILY [facility] Last Admin: 02/17/17 08:07 Dose: 25 mg Magnesium Hydroxide (Milk Of Magnesia Liq*) 30 ml PO BEDTIME PRN PRN Reason: CONSTIPATION Mirtazapine (Remeron Tab*) 7.5 mg PO BEDTIME [facility] Last Admin: 02/16/17 22:13 Dose: 7.5 mg Montelukast Sodium (Singulair Tab*) 10 mg PO BEDTIME [facility] Last Admin: 02/16/17 22:11 Dose: 10 mg Oxycodone HCl (Roxycodone Tab*) 10 mg PO Q4H PRN PRN Reason: PAIN - SEVERE Last Admin: 02/17/17 16:19 Dose: 10 mg Pharmacy Profile Note (Lidocaine Patch Remove*) 1 note PATCH OFF 2100 [facility] Polyethylene Glycol/Electrolytes (Miralax*) 17 gm PO DAILY PRN PRN Reason: CONSTIPATION Prednisone (Deltasone Tab*) 40 mg PO DAILY [facility] Last Admin: 02/17/17 08:07 Dose: 40 mg Senna (Senokot Tab*) 2 tab PO DAILY PRN PRN Reason: CONSTIPATION Sertraline HCl (Zoloft*) 100 mg PO BID [facility] Last Admin: 02/17/17 08:07 Dose: 100 mg Vital Signs 02/16/17 02/16/17 02/16/17 19:49 20:00 20:52 Temperature 99.4 F Pulse Rate 107 105 Respiratory 22 20 20 Rate Blood Pressure 132/75 (mmHg) O2 Sat by Pulse 95 98 Oximetry 02/16/17 02/16/17 02/16/17 22:11 22:12 23:29 Temperature 98.9 F Pulse Rate 111 Respiratory 20 20 18 Rate Blood Pressure 118/56 (mmHg) O2 Sat by Pulse 96 Oximetry 02/16/17 02/17/17 02/17/17 23:34 00:14 00:28 Temperature Pulse Rate Respiratory 20 20 20 Rate Blood Pressure (mmHg) O2 Sat by Pulse Oximetry 02/17/17 02/17/17 02/17/17 01:47 01:59 03:02 Temperature 97.8 F Pulse Rate 103 107 Respiratory 20 20 18 Rate Blood Pressure 145/71 (mmHg) O2 Sat by Pulse 94 97 Oximetry 02/17/17 02/17/17 02/17/17 03:42 05:15 05:43 Temperature 97.4 F Pulse Rate 101 Respiratory 20 18 Rate Blood Pressure (mmHg) O2 Sat by Pulse 97 Oximetry 02/17/17 02/17/17 02/17/17 07:25 07:48 08:00 Temperature 97.4 F Pulse Rate 96 97 Respiratory 18 20 Rate Blood Pressure 116/70 (mmHg) O2 Sat by Pulse 98 99 Oximetry 02/17/17 02/17/17 02/17/17 11:19 11:48 13:44 Temperature 98.5 F Pulse Rate 104 Respiratory 14 20 22 Rate Blood Pressure 101/57 (mmHg) O2 Sat by Pulse 98 Oximetry 02/17/17 02/17/17 02/17/17 14:12 16:19 16:42 Temperature Pulse Rate Respiratory 22 16 22 Rate Blood Pressure (mmHg) O2 Sat by Pulse Oximetry Oxygen Devices in Use Now: Nasal Cannula Appearance: NAD, lying in bed. Eyes: No Scleral Icterus, PERRLA Ears/Nose/Mouth/Throat: NL Teeth, Lips, Gums, Mucous Membranes Moist Respiratory: Symmetrical Chest Expansion and Respiratory Effort, - - no rales, not bronchospastic. Cardiovascular: NL Sounds; No Murmurs; No JVD, - - tachycardic, no M/R/G Abdominal: NL Sounds; No Tenderness; No Distention, No Hepatosplenomegaly Extremities: No Edema Skin: No Rash or Ulcers, No Nodules or Sclerosis Neurological: - - oriented to person, moving all extremities. Nutrition: Taking PO's Result Diagrams: 02/17/17 06:24 02/17/17 06:24 Additional Lab and Data: Laboratory Results - last 24 hr 02/17/17 02/17/17 02/17/17 06:24 06:24 06:27 WBC 17.5 H RBC 4.21 Hgb 10.6 L Hct 34 L MCV 80 MCH 25 L MCHC 31 RDW 19 H Plt Count 308 MPV 8 Neut % (Auto) 88.4 H Lymph % (Auto) 7.7 L Coryell % (Auto) 3.7 Eos % (Auto) 0 Baso % (Auto) 0.2 Absolute Neuts (auto) 15.5 H Absolute Lymphs (auto) 1.4 Absolute Monos (auto) 0.6 Absolute Eos (auto) 0 Absolute Basos (auto) 0 Absolute Nucleated RBC 0.01 Nucleated RBC % 0.1 Sodium 139 Potassium 4.2 Chloride 99 L Carbon Dioxide 34 H Anion Gap 6 BUN 24 Creatinine 0.88 Est GFR ( Amer) 80.1 Est GFR (Non-Af Amer) 62.3 BUN/Creatinine Ratio 27.3 H Glucose 141 H Lactic Acid 2.2 H* Calcium 9.0 Microbiology and Other Data: Microbiology 02/16/17 16:52 Blood Venous Aerobic Blood Culture - Preliminary No Growth Day 1 02/16/17 16:52 Blood Venous Anaerobic Blood Culture - Preliminary No Growth Day 1 02/16/17 16:04 Blood Venous Aerobic Blood Culture - Preliminary No Growth Day 1 02/16/17 16:04 Blood Venous Anaerobic Blood Culture - Preliminary No Growth Day 1 02/17/17 13:50 Sputum Expectorated Gram Stain - Final 02/16/17 16:56 Nasal Nasal Screen MRSA (PCR)(CHANG) - Final Mrsa Negative 02/16/17 16:56 Nasopharyngeal Influenza Types A,B Antigen (CHANG) - Final Specimen received for Influenza A/B Molecular testing Assess/Plan/Problems-Billing Assessment: 76 yo female PMH COPD, parkinson's dz, recent numerous falls with fractures and recent pneumonia p/w leukocytosis, tachycardia, continued pain from recent sacral fracture. Chronic respiratory failure. CXR with edema. ECHO pending, increased diuresis. - Patient Problems (1) Acute on chronic respiratory failure with hypoxemia Current Visit: No Status: Acute Code(s): J96.21 - ACUTE AND CHRONIC RESPIRATORY FAILURE WITH HYPOXIA SNOMED Code(s): 52251904050707516 Comment: Recent pna (required vapotherm in ICU), treated with zosyn x 3days then levaquin. CTA with air bronchograms and consolidative changes. anterior mediastinum looks prominent (though not called on CTA read). Getting ECHO (none in system, concern for CHF vs pHTN vs effusion? vs valvular dysfunction). COPD, on prednisone 40mg daily increased diuresis and attempt vq scan vs CTA when able to lie flat on azithromycin. Switch to ceftriaxone. MRSA nares negative. (2) COPD (chronic obstructive pulmonary disease) Current Visit: No Status: Acute Code(s): J44.9 - CHRONIC OBSTRUCTIVE PULMONARY DISEASE, UNSPECIFIED SNOMED Code(s): 34393382 Comment: prednisone 40mg daily, s/p solumedrol 125mg in ED. hai roberts (3) HTN (hypertension) Current Visit: No Status: Acute Code(s): I10 - ESSENTIAL (PRIMARY) HYPERTENSION SNOMED Code(s): 54832716 Comment: clonidine 0.1mg BID, losartan 25 lasix 40mg po daily -> bumex 1mg IV BID (4) Anxiety Current Visit: No Status: Acute Code(s): F41.9 - ANXIETY DISORDER, UNSPECIFIED SNOMED Code(s): 20339987 Comment: zoloft 100mg bid (5) Parkinson disease Current Visit: No Status: Acute Code(s): G20 - PARKINSON'S DISEASE SNOMED Code(s): 35694440 Comment: sinemet (6) Sacral insufficiency fracture with routine healing Current Visit: No Status: Acute Code(s): M84.48XD - PATHOLOGICAL FRACTURE, OTH SITE, SUBS FOR FX W ROUTN HEAL SNOMED Code(s): 968444700 Comment: WBAT PT lidocaine patch fentanyl patch 12mcg oxycodone 10mg q4h prn Status and Disposition: medicine inpatient. Attending: Ty Kate
[2017-02-17] MEDS: Bumetanide IV* 0.25 MG/ML 4 ML VIAL SLOW PUSH SCH (20:39)
[2017-02-17] MEDS: Mirtazapine TAB* 15 MG PO SCH (20:40)
[2017-02-17] MEDS: Montelukast Sodium TAB* 10 MG PO SCH (20:40)
[2017-02-17] MEDS: Lidocaine Patch REMOVE* 1 NOTE MISC PATCH OFF SCH (23:01)
[2017-02-18] MEDS ORDERED: cefTRIAXone VIAL(*) 1,000 MG in D5W 50 ML BAG* 50 ML IVPB SCH (01:00)
[2017-02-18] MEDS: Albuterol/Ipratropium NEB.SOL* Albuterol 2.5 MG/Ipratropium 0.5 MG 3 ML INH SCH ×5 (01:42→23:37)
[2017-02-18] MEDS: Acetaminophen TAB* 325 MG PO SCH ×3 (05:57→22:17)
[2017-02-18] MEDS: Heparin VIAL(*) 5000 UNITS/ML VIAL (FIVE THOUSAND) SUBCUT SCH ×3 (05:58→22:17)
[2017-02-18] MEDS: cloNIDine TAB* 0.1 MG PO SCH ×2 (06:23→16:17)
[2017-02-18] MEDS: Carbidopa/Levodop 25/100 MG TAB(*) PO SCH ×3 (06:23→20:10)
[2017-02-18] MEDS: fentaNYL Patch Check Q Shift 1 NOTE SCH ×2 (07:00→18:51)
[2017-02-18] MEDS: oxyCODONE TAB* 5 MG TAB PO PRN ×2 (07:56→12:55)
[2017-02-18 08:35] LABS: Hematocrit 31 % (35-47); Hemoglobin 9.9 g/dl (12.0-16.0); Mean Corpuscular HGB Conc 32 g/dl (31-36); Mean Corpuscular Hemoglobin 25 pg (27-31); Mean Corpuscular Volume 79 fL (80-97); Mean Platelet Volume 7 um3 (7.4-10.4); Red Blood Count 3.92 10^6/ul (4.0-5.4); Red Cell Distribution Width 19 % (10.5-15); White Blood Count 15.3 10^3/ul (3.5-10.8)
[2017-02-18 08:50] LABS: BUN/Creatinine Ratio 25.6 (8-20); EGFR African American 78.1 (>60); EGFR Non-African American 60.7 (>60); Potassium 3.7 mmol/L (3.5-5.0)
[2017-02-18] MEDS ORDERED: Azithromycin TAB* 250 MG PO SCH (09:00)
[2017-02-18] MEDS: Losartan TAB* 25 MG PO SCH (09:11)
[2017-02-18] MEDS: Sertraline* 100 MG TAB PO SCH ×2 (09:11→20:05)
[2017-02-18] MEDS: Cholecalciferol TAB* 1000 UNITS PO SCH (09:11)
[2017-02-18] MEDS: Bumetanide IV* 0.25 MG/ML 4 ML VIAL SLOW PUSH SCH (09:11)
[2017-02-18] MEDS: Folic Acid TAB* 1 MG PO SCH (09:11)
[2017-02-18] MEDS: Cyanocobalamin TAB* 500 MCG PO SCH (09:11)
[2017-02-18] MEDS: predniSONE TAB* 20 MG PO SCH (09:11)
[2017-02-18] MEDS: Lidocaine PATCH 5%* 1 PATCH TRANSDERM SCH (09:12)
--- NOTE | 2017-02-18 14:37 | ECHO ---
Patient: BRUNA KRAUSE Rec#: [id number] : 1940 Date: 02/18/2017 Age: 76y Height: 165 cm / 65.0 in Weight: 83.5 kg / 184.0 lbs Sex: F BSA: 1.9 Room#: [facility] Admit Date#: 02/16/2017 Type: Inpatient Referring: Ty Kate Reading: Gabriel Walls DO Steersman: Lila Pitt RN RDCS Transthoracic Echocardiogram Indication: Respiratory failure BP: 119/58 HR: 98 Rhythm: NSR with PACs Findings History: HTN, obesity, COPD, Parkinson's disease, pneumonia, recent falls Technical Comments: The study quality is fair. The study is technically limited due to patient body habitus. The study is technically limited due to the patient's history of COPD. Left Ventricle: The left ventricular chamber size is decreased. Mild concentric left ventricular hypertrophy is observed. There is increased basal septal hypertrophy noted without evidence of an increased gradient across the left ventricular outflow tract. Completed at 1210. Global left ventricular wall motion and contractility are within normal limits. The left ventricle appears hyperdynamic. The estimated ejection fraction is greater than 65%. There is an E to A reversal in the mitral valve flow pattern suggestive of diastolic dysfunction. Left Atrium: The left atrial chamber size is normal. Right Ventricle: The right ventricular chamber size and systolic function are within normal limits. Right Atrium: The right atrial cavity size is normal. Aortic Valve: The aortic valve leaflets are mildly thickened. There is trace to mild aortic regurgitation. There is no evidence of aortic stenosis. Mitral Valve: The mitral valve leaflets are mildly thickened. There is trace to mild mitral regurgitation. There is no evidence of mitral stenosis. Tricuspid Valve: The tricuspid valve leaflets are normal. There is trace to mild tricuspid regurgitation. Unable to estimate the right ventricular systolic pressure. Pulmonic Valve: The pulmonic valve appears normal. There is trace to mild pulmonic regurgitation. There is no pulmonic stenosis. Pericardium: There is no significant pericardial effusion. A pericardial fat pad is visualized. Aorta: There is no dilatation of the ascending aorta. There is no dilatation of the aortic arch. There is no dilation of the aortic root. Pulmonary Artery: The main pulmonary artery is not well visualized. Venous: The venous system is not well visualized. The inferior vena cava is not visualized. Conclusions The left ventricular chamber size is decreased. Mild concentric left ventricular hypertrophy is observed. There is increased basal septal hypertrophy noted without evidence of an increased gradient across the left ventricular outflow tract. The left ventricle appears hyperdynamic. The estimated ejection fraction is greater than 70%. The left atrial chamber size is normal. The right ventricular chamber size and systolic function are within normal limits. No significant valvular abnormalities noted Unable to estimate the right ventricular systolic pressure. No prior studies available for comparison at time of interpretation. Measurements Name Value Normal Range RVDdMajor (2D) 3 cm (2.2 - 4.4) RAd ISD 4CH 4.3 cm (3.4 - 4.9) RA (A4C)W 3.6 cm (2.9 - 4.6) IVSd (2D) 1.6 cm (0.6 - 1) LVPWd (2D) 1 cm (0.6 - 1) LVIDd (2D) 3.1 cm (3.6 - 5.4) Aortic Annulus 1.8 cm (1.4 - 2.6) Ao root diameter (2D) 2.7 cm (2.1 - 3.5) Ascending Ao 3.5 cm (2.1 - 3.4) Aortic arch 3.3 cm (1.8 - 3.4) LAd ISD 4CH 5 cm (2.9 - 5.3) LA ISD 4CH W 4.4 cm (2.5 - 4.5) Name Value Normal Range LA ESV SP 4CH (A/L) 54 ml - LA ESV SP 2CH (A/L) 54 ml - LA ESV BP (A/L) 54 ml - LA ESV BP (A/L) index 28.3 ml/m2 - LA ESV SP 4CH (MOD) 51 ml - LA ESV SP 2CH (MOD) 52 ml - Name Value Normal Range MV E-wave Vmax 0.92 m/sec - MV deceleration time 279 msec - MV A-wave Vmax 1.5 m/sec - MV E:A ratio 0.61 ratio - LV septal e' Vmax 0.05 m/sec - LV lateral e' Vmax 0.08 m/sec - LV E:e' septal ratio 18.4 ratio - LV E:e' lateral ratio 11.5 ratio - Name Value Normal Range AV Vmax 1.8 m/sec - AV VTI 36.3 cm - AV peak gradient 13 mmHg - AV mean gradient 8.5 mmHg - LVOT Vmax 1.7 m/sec - LVOT VTI 30.8 cm - LVOT peak gradient 10.9 mmHg - LVOT mean gradient 7.2 mmHg - CHEY Vmax 0.56 m/sec - Name Value Normal Range PV Vmax 1 m/sec -
[2017-02-18] MEDS ORDERED: Zosyn per Pharmacy* NOTE FOLLOW UP SCH (15:00)
[2017-02-18] MEDS ORDERED: Piperacillin/Tazobac ADVAN(*) 3.375 GM in NS 0.9% 100 ML* 100 ML IVPB ONE (15:30)
--- NOTE | 2017-02-18 15:35 | PN ---
Subjective Date of Service: 02/18/17 Interval History: Lactic acidosis still present. Pt pain not controlled with ambulation and sometimes at rest. HR overall improved but creeping back up. Serratia on Sputum Cx, cftx changed to zosyn. ECHO demonstrated diastolic dysfunction, normal valves. CT Chest with continued consolidative changes left > right, air bronchograms. Objective Active Medications: Acetaminophen (Tylenol Tab*) 975 mg PO Q8HR [facility] Last Admin: 02/18/17 05:57 Dose: 975 mg Albuterol/Ipratropium (Duoneb (Albuterol 2.5 Mg/Ipratropium 0.5 Mg)) 1 neb INH Q6H [facility] Last Admin: 02/18/17 13:33 Dose: 1 neb Bumetanide (Bumex*) 1 mg SLOW PUSH BID [facility] Last Admin: 02/18/17 09:11 Dose: 1 mg Carbidopa/Levodopa (Sinemet 25/100 Tab(*)) 1 tab PO 0700,1300,2000 [facility] Last Admin: 02/18/17 12:55 Dose: 1 tab Cholecalciferol (Vitamin D Tab*) 1,000 units PO DAILY [facility] Last Admin: 02/18/17 09:11 Dose: 1,000 units Clonidine HCl (Catapres Tab*) 0.1 mg PO 0700,1600 [facility] Last Admin: 02/18/17 06:23 Dose: 0.1 mg Cyanocobalamin (Vitamin B12 Tab*) 1,000 mcg PO DAILY [facility] Last Admin: 02/18/17 09:11 Dose: 1,000 mcg Diazepam (Valium Tab(*)) 2 mg PO Q6HR PRN PRN Reason: ANXIETY Last Admin: 02/17/17 13:44 Dose: 2 mg Fentanyl (Duragesic Patch 12 Mcg/Hr *) 12 mcg TRANSDERM Q72H [facility] Last Admin: 02/16/17 23:34 Dose: 12 mcg Folic Acid (Folvite Tab*) 1 mg PO DAILY [facility] Last Admin: 02/18/17 09:11 Dose: 1 mg Heparin Sodium (Porcine) (Heparin Vial(*)) 5,000 units SUBCUT Q8HR [facility] Last Admin: 02/18/17 05:58 Dose: 5,000 units Piperacillin Sod/Tazobactam (Sod 3.375 gm/ Sodium Chloride) 100 mls @ 200 mls/ hr IVPB ONCE ONE Stop: 02/18/17 15:59 Ibuprofen (Motrin Tab*) 600 mg PO Q6H PRN PRN Reason: PAIN Last Admin: 02/17/17 23:11 Dose: 600 mg Lidocaine (Lidoderm 5% Patch*) 1 patch TRANSDERM DAILY [facility] Last Admin: 02/18/17 09:12 Dose: 1 patch Lorazepam (Ativan Tab(*)) 1 mg PO BEDTIME PRN PRN Reason: ANXIETY Last Admin: 02/17/17 00:14 Dose: 1 mg Losartan Potassium (Cozaar Tab*) 25 mg PO DAILY [facility] Last Admin: 02/18/17 09:11 Dose: 25 mg Magnesium Hydroxide (Milk Of Magnesia Liq*) 30 ml PO BEDTIME PRN PRN Reason: CONSTIPATION Mirtazapine (Remeron Tab*) 7.5 mg PO BEDTIME [facility] Last Admin: 02/17/17 20:40 Dose: 7.5 mg Montelukast Sodium (Singulair Tab*) 10 mg PO BEDTIME [facility] Last Admin: 02/17/17 20:40 Dose: 10 mg Oxycodone HCl (Roxycodone Tab*) 10 mg PO Q4H PRN PRN Reason: PAIN - SEVERE Last Admin: 02/18/17 12:55 Dose: 10 mg Pharmacy Consult (Zosyn Per Pharmacy*) 1 note FOLLOW UP .ZOSYN PER PHARMACY [facility] Pharmacy Profile Note (Lidocaine Patch Remove*) 1 note PATCH OFF 2100 [facility] Last Admin: 02/17/17 23:01 Dose: 1 note Pharmacy Profile Note (Fentanyl Patch Check Q Shift) 0 note N/A 0700,1900 [facility] Last Admin: 02/18/17 07:00 Dose: 1 note Polyethylene Glycol/Electrolytes (Miralax*) 17 gm PO DAILY PRN PRN Reason: CONSTIPATION Prednisone (Deltasone Tab*) 40 mg PO DAILY [facility] Last Admin: 02/18/17 09:11 Dose: 40 mg Senna (Senokot Tab*) 2 tab PO DAILY PRN PRN Reason: CONSTIPATION Sertraline HCl (Zoloft*) 100 mg PO BID [facility] Last Admin: 02/18/17 09:11 Dose: 100 mg Vital Signs 02/17/17 02/17/17 02/17/17 16:19 16:42 19:32 Temperature 97.8 F Pulse Rate 155 Respiratory 16 22 22 Rate Blood Pressure 118/48 (mmHg) O2 Sat by Pulse 94 Oximetry 02/17/17 02/17/17 02/17/17 20:00 20:18 20:39 Temperature Pulse Rate 103 Respiratory 20 20 18 Rate Blood Pressure (mmHg) O2 Sat by Pulse 96 Oximetry 02/17/17 02/18/17 02/18/17 23:51 01:44 04:13 Temperature 97.8 F 97.4 F Pulse Rate 96 93 93 Respiratory 16 16 16 Rate Blood Pressure 118/54 119/58 (mmHg) O2 Sat by Pulse 96 99 99 Oximetry 02/18/17 02/18/17 02/18/17 07:56 08:00 08:17 Temperature 97.9 F Pulse Rate 94 89 Respiratory 18 18 22 Rate Blood Pressure 116/57 (mmHg) O2 Sat by Pulse 97 94 Oximetry 02/18/17 02/18/17 02/18/17 09:30 10:28 12:55 Temperature Pulse Rate Respiratory 18 18 20 Rate Blood Pressure (mmHg) O2 Sat by Pulse Oximetry 02/18/17 02/18/17 13:35 15:34 Temperature Pulse Rate 106 Respiratory 18 18 Rate Blood Pressure (mmHg) O2 Sat by Pulse 98 Oximetry Oxygen Devices in Use Now: Nasal Cannula Appearance: Increased work of breathing on 2nd evaluation. Eyes: No Scleral Icterus, PERRLA Ears/Nose/Mouth/Throat: NL Teeth, Lips, Gums, - - face flush Neck: NL Appearance and Movements; NL JVP Respiratory: - - rhonchi diffusely, slight exp wheeze. Cardiovascular: NL Sounds; No Murmurs; No JVD, - - tachycardia Abdominal: NL Sounds; No Tenderness; No Distention, No Hepatosplenomegaly Extremities: No Edema Skin: No Rash or Ulcers Neurological: Alert and Oriented x 3 Nutrition: Taking PO's Result Diagrams: 02/18/17 08:24 02/18/17 08:24 Additional Lab and Data: Laboratory Results - last 24 hr 02/18/17 02/18/17 02/18/17 08:24 08:24 08:24 WBC 15.3 H RBC 3.92 L Hgb 9.9 L Hct 31 L MCV 79 L MCH 25 L MCHC 32 RDW 19 H Plt Count 256 MPV 7 L Neut % (Auto) 86.7 H Lymph % (Auto) 8.3 L [place] % (Auto) 4.7 Eos % (Auto) 0.2 Baso % (Auto) 0.1 Absolute Neuts (auto) 13.2 H Absolute Lymphs (auto) 1.3 Absolute Monos (auto) 0.7 Absolute Eos (auto) 0 Absolute Basos (auto) 0 Absolute Nucleated RBC 0 Nucleated RBC % 0 Sodium 140 Potassium 3.7 Chloride 97 L Carbon Dioxide 37 H Anion Gap 6 BUN 23 Creatinine 0.90 Est GFR ( Amer) 78.1 Est GFR (Non-Af Amer) 60.7 BUN/Creatinine Ratio 25.6 H Glucose 148 H Lactic Acid 2.4 H* Calcium 9.0 Microbiology and Other Data: Microbiology 02/16/17 16:52 Blood Venous Aerobic Blood Culture - Preliminary No Growth Day 2 02/16/17 16:52 Blood Venous Anaerobic Blood Culture - Preliminary No Growth Day 2 02/16/17 16:04 Blood Venous Aerobic Blood Culture - Preliminary No Growth Day 2 02/16/17 16:04 Blood Venous Anaerobic Blood Culture - Preliminary No Growth Day 2 02/17/17 13:50 Sputum Expectorated Gram Stain - Final 02/17/17 13:50 Sputum Expectorated Sputum Culture - Preliminary Serratia Marcescens 02/16/17 16:56 Nasal Nasal Screen MRSA (PCR)(CHANG) - Final Mrsa Negative 02/16/17 16:56 Nasopharyngeal Influenza Types A,B Antigen (CHANG) - Final Specimen received for Influenza A/B Molecular testing Assess/Plan/Problems-Billing Assessment: 76 yo female PMH COPD, parkinson's dz, recent numerous falls with fractures and recent pneumonia p/w leukocytosis, tachycardia, lactic acidosis, continued pain from recent sacral fracture. Acute on Chronic respiratory failure. ECHO with diastolic dysfunction. Sepsis 2/2 Serratia Marcescens pna. Now zosyn. - Patient Problems (1) Acute on chronic respiratory failure with hypoxemia Current Visit: No Status: Acute Code(s): J96.21 - ACUTE AND CHRONIC RESPIRATORY FAILURE WITH HYPOXIA SNOMED Code(s): 08761264438824302 Comment: Serratia marcescens on sputum. CT chest 02/18 with continued air bronchograms and consolidative changes. Switched to zosyn from ceftriaxone. MRSA nares negative. f/u sensitivities. - Recent pna (required vapotherm in ICU), treated with zosyn x 3days then levaquin. - ECHO with diastolic dysfunction. - Hx COPD, chronic 3L. on prednisone 40mg daily. nebulizers (increase from q6 to q4 with q2 prn) (2) COPD (chronic obstructive pulmonary disease) Current Visit: No Status: Acute Code(s): J44.9 - CHRONIC OBSTRUCTIVE PULMONARY DISEASE, UNSPECIFIED SNOMED Code(s): 66257598 Comment: prednisone 40mg daily, s/p solumedrol 125mg in ED. nelson roberts duonebs. (3) HTN (hypertension) Current Visit: No Status: Acute Code(s): I10 - ESSENTIAL (PRIMARY) HYPERTENSION SNOMED Code(s): 27018056 Comment: clonidine 0.1mg BID, losartan 25 lasix 40mg po daily -> bumex 1mg IV BID (4) Anxiety Current Visit: No Status: Acute Code(s): F41.9 - ANXIETY DISORDER, UNSPECIFIED SNOMED Code(s): 66960554 Comment: zoloft 100mg bid (5) Parkinson disease Current Visit: No Status: Acute Code(s): G20 - PARKINSON'S DISEASE SNOMED Code(s): 52519031 Comment: sinemet (6) Sacral insufficiency fracture with routine healing Current Visit: No Status: Acute Code(s): M84.48XD - PATHOLOGICAL FRACTURE, OTH SITE, SUBS FOR FX W ROUTN HEAL SNOMED Code(s): 668356779 Comment: WBAT PT lidocaine patch fentanyl patch 12mcg oxycodone 10mg q4h prn pain still not controlled add dilaudid IV 2 q4 prn but avoid benzo prns if given. Status and Disposition: medicine inpatient. Attending: Ty Kate
[2017-02-18] MEDS: HYDROmorphone INJ* 2 MG/ML CARPUJECT SYRINGE IV SLOW PU PRN (16:18)
--- NOTE | 2017-02-18 16:39 | RAD ---
INDICATION: Respiratory failure. CHF. Acute upon chronic findings COMPARISON: Chest x-ray February 08, 2017; CTA chest January 31, 2017 TECHNIQUE: Noncontrast axial source images were obtained from the thoracic inlet to the hemidiaphragms. Coronal and sagittal reconstructed images were acquired. The visualized neck to include the thyroid appear normal. Chest wall: There are no acute abnormalities of the bony thorax or chest wall. There is no supraclavicular, infraclavicular, or axillary lymphadenopathy. Lungs : There are consolidative changes with air bronchograms in the right middle and left lower lobes without appreciable interval change. Cardiomediastinal structures: The heart is mildly enlarged. There is no pericardial effusion. There is no evidence of aortic aneurysm or dissection. The pulmonary vessels appear normal. There is no mediastinal or hilar adenopathy. The esophagus appears normal. Pleura : There are no pleural-based masses or effusions. Other: Limited views the upper abdomen show cholecystectomy. There is a heterogeneous appearance the spleen. Earlier contrast-enhanced imaging has demonstrated sclerotic lesions. There is metallic density artifact from prior cholecystectomy and from presumed left adrenalectomy. IMPRESSION: CHRONIC AIRSPACE DISEASE WITH PARTIAL CONSOLIDATION RIGHT MIDDLE AND LEFT LOWER LOBES
[2017-02-18] MEDS: ZOSYN 3.375 GM Q8H per EXTENDED INFUSION IVPB SCH ×2 (20:04)
[2017-02-18] MEDS: Montelukast Sodium TAB* 10 MG PO SCH (20:04)
[2017-02-18] MEDS: Mirtazapine TAB* 15 MG PO SCH (20:05)
[2017-02-18] MEDS: Lidocaine Patch REMOVE* 1 NOTE MISC PATCH OFF SCH (20:18)
[2017-02-18] MEDS: LORazepam TAB(*) 1 MG PO PRN (22:17)
[2017-02-18] MEDS: Mometasone/Formoter 200/5 MDI INH SCH (23:37)
[2017-02-19] MEDS: Albuterol/Ipratropium NEB.SOL* Albuterol 2.5 MG/Ipratropium 0.5 MG 3 ML INH SCH ×4 (02:49→19:42)
[2017-02-19] MEDS: HYDROmorphone INJ* 2 MG/ML CARPUJECT SYRINGE IV SLOW PU PRN ×2 (03:19→11:46)
[2017-02-19] MEDS: ZOSYN 3.375 GM Q8H per EXTENDED INFUSION IVPB SCH ×2 (04:38)
[2017-02-19] MEDS: Heparin VIAL(*) 5000 UNITS/ML VIAL (FIVE THOUSAND) SUBCUT SCH ×3 (06:01→22:08)
[2017-02-19] MEDS: Acetaminophen TAB* 325 MG PO SCH ×3 (06:01→22:08)
[2017-02-19 06:31] LABS: Hematocrit 30 % (35-47); Hemoglobin 9.7 g/dl (12.0-16.0); Mean Corpuscular HGB Conc 32 g/dl (31-36); Mean Corpuscular Hemoglobin 25 pg (27-31); Mean Corpuscular Volume 79 fL (80-97); Mean Platelet Volume 7 um3 (7.4-10.4); Red Blood Count 3.83 10^6/ul (4.0-5.4); Red Cell Distribution Width 19 % (10.5-15)
[2017-02-19 06:48] LABS: BUN/Creatinine Ratio 29.1 (8-20); Calcium 9.2 mg/dL (8.6-10.3); EGFR African American 90.8 (>60); EGFR Non-African American 70.6 (>60); Potassium 3.8 mmol/L (3.5-5.0)
[2017-02-19] MEDS: fentaNYL Patch Check Q Shift 1 NOTE SCH ×2 (07:22→18:57)
[2017-02-19] MEDS: Lidocaine PATCH 5%* 1 PATCH TRANSDERM SCH (07:43)
[2017-02-19] MEDS: oxyCODONE TAB* 5 MG TAB PO PRN ×3 (07:45→20:24)
[2017-02-19] MEDS: cloNIDine TAB* 0.1 MG PO SCH ×2 (07:45→15:23)
[2017-02-19] MEDS: Carbidopa/Levodop 25/100 MG TAB(*) PO SCH ×3 (07:45→22:08)
[2017-02-19] MEDS: Cholecalciferol TAB* 1000 UNITS PO SCH (07:45)
[2017-02-19] MEDS: predniSONE TAB* 20 MG PO SCH (07:46)
[2017-02-19] MEDS: Folic Acid TAB* 1 MG PO SCH (07:46)
[2017-02-19] MEDS: Cyanocobalamin TAB* 500 MCG PO SCH (07:46)
[2017-02-19] MEDS: Losartan TAB* 25 MG PO SCH (07:46)
[2017-02-19] MEDS: Sertraline* 100 MG TAB PO SCH ×2 (07:46→20:19)
[2017-02-19] MEDS: Mometasone/Formoter 200/5 MDI INH SCH ×2 (10:56→19:39)
[2017-02-19] MEDS: Meropenem 1 GM PREMIX(*) 1 GM/50 ML BAG IV SCH ×2 (11:46→18:58)
--- NOTE | 2017-02-19 13:21 | ED ---
Iram Ruano Thomas, scribed for Marco A Cole MD on 02/16/17 at 1515 . Complex/Multi-Sys Presentation - HPI Summary HPI Summary: The pt is a 76 y/o F BIBA from [facility] c/o right-sided hip pain s/p a fall one week ago as well as SOB that began in the last hour. The hip pain is constant. The pain is rated 10/10. The pain is aggravated by movement and is alleviated by nothing. She is unable to ambulate. The patient was given a nebulizer en route to [facility] [place]. Pt additionally c/o diaphoresis. Pt denies CP, fever , and cough. PMHx includes COPD. - History Of Current Complaint Chief Complaint: EDShortnessOfBreath Time Seen by Provider: 02/16/17 14:59 Hx Obtained From: Patient Onset/Duration: Lasting Hours - SOB in last hour, Lasting Weeks - onset of hip pain 1 week ago, Still Present Timing: Constant Severity Currently: Moderate Location: Pain At: - R hip Aggravating Factor(s): Movement Alleviating Factor(s): Movement Associated Signs And Symptoms: Positive: Other - Hip pain, SOB, diaphoresis; NEGATIVE: CP, fever, cough - Allergies/Home Medications Allergies/Adverse Reactions: Allergies Allergy/AdvReac Type Severity Reaction Status Date / Time Aspirin Allergy Unknown Verified 01/30/17 11:19 Reaction Details Morphine Allergy Unknown Verified 01/30/17 11:19 Reaction Details Iodine AdvReac Unknown Verified 01/30/17 14:36 Reaction Details IVP AdvReac Unknown Uncoded 01/30/17 14:36 Reaction Details Home Medications: Home Medications Acetaminophen [Acetaminophen Extra Stren] 1,000 mg PO Q8HR 02/16/17 [History Confirmed 02/16/17] Albuterol/Ipratropium NEB.SHARRON* [Duoneb (Albuterol 2.5 MG/Ipratropium 0.5 MG)] 1 neb INH Q4H PRN 02/16/17 [History Confirmed 02/16/17] Benzocaine/Menthol BECKA* [Chloraseptic BECKA*] 1 becka MT Q4HR PRN 02/16/17 [History Confirmed 02/16/17] Diazepam TAB(*) [Valium TAB(*)] 2 mg PO Q6HR PRN 02/16/17 [History Confirmed ] Ibuprofen TAB* [Advil TAB*] 600 mg PO Q6H PRN 02/16/17 [History Confirmed ] Lidocaine PATCH 5%* [Lidoderm 5% Patch*] 1 patch TRANSDERM DAILY 02/16/17 [ History Confirmed 02/16/17] Potassium Chlor TAB* [Klor Con ER TAB*] 20 meq PO DAILY 02/16/17 [History Confirmed 02/16/17] fentaNYL PATCH 12 MCG/HR * [Duragesic Patch 12 Mcg/Hr *] 12 mcg TRANSDERM Q72H 02/16/17 [History Confirmed 02/16/17] oxyCODONE TAB* [Roxycodone TAB 5 mg*] 10 mg PO Q4H PRN 02/16/17 [History Confirmed 02/16/17] predniSONE TAB* [Deltasone TAB*] 40 mg PO DAILY 02/16/17 [History Confirmed ] PMH/Surg Hx/FS Hx/Imm Hx Previously Healthy: No Endocrine/Hematology History: Denies: Hx Diabetes Respiratory History: Reports: Hx Chronic Obstructive Pulmonary Disease (COPD) History: Denies: Hx Renal Disease Sensory History: Denies: Hx Contacts or Glasses, Hx Hearing Aid Opthamlomology History: Denies: Hx Contacts or Glasses - Surgical History Surgery Procedure, Year, and Place: bilateral knee replacement, rt total hip replacement Infectious Disease History: No Infectious Disease History: Denies: Traveled Outside the [place] in Last 30 Days - Family History Known Family History: Positive: Other - Patient denies relevant FHx - Social History Occupation: Unemployed Lives: At [facility] Alcohol Use: None Hx Substance Use: No Substance Use Type: Reports: None Hx Tobacco Use: Yes Smoking Status (MU): Unknown if Ever Smoked Review of Systems Positive: Skin Diaphoresis. Negative: Fever Negative: Chest Pain Positive: Shortness Of Breath. Negative: Cough Positive: Other - Hip pain All Other Systems Reviewed And Are Negative: Yes Physical Exam - Summary Physical Exam Summary: VITAL SIGNS: Reviewed. GENERAL: Patient is an elderly, fragile female who is lying comfortable in the stretcher. Patient is not in any acute respiratory distress. HEAD AND FACE: No signs of trauma. No ecchymosis, hematomas or skull depressions. No sinus tenderness. EYES: PERRLA, EOMI x 2, No injected conjunctiva, no nystagmus. EARS: Hearing grossly intact. Ear canals and tympanic membranes are within normal limits. MOUTH: Oropharynx within normal limits. NECK: Supple, trachea is midline, no adenopathy, no JVD, no carotid bruit, no c- spine tenderness, neck with full ROM. CHEST: Symmetric, no tenderness at palpation LUNGS: She is short of breath but able to speak in full sentences. There are bilateral wheezes in her lungs. There are some crackles on the bases. CVS: Regular rate and rhythm, S1 and S2 present, no murmurs or gallops appreciated. ABDOMEN: Soft, non-tender. No signs of distention. No rebound no guarding, and no masses palpated. Bowel sounds are normal. EXTREMITIES: The right hip has decreased range of motion secondary to pain. Otherwise, there is FROM in all other major joints, no edema, no cyanosis or clubbing. NEURO: Alert and oriented x 3. No acute neurological deficits. Speech is normal and follows commands. SKIN: Dry and warm Triage Information Reviewed: Yes Vital Signs On Initial Exam: Initial Vitals Temp Pulse Resp BP Pulse Ox 98.3 F 114 21 112/74 96 02/16/17 14:51 02/16/17 14:51 02/16/17 14:51 02/16/17 14:51 02/16/17 14:51 Vital Signs Reviewed: Yes - Yesi Coma Scale Coma Scale Total: 15 Diagnostics - Vital Signs Vital Signs Temp Pulse Resp BP Pulse Ox 02/16/17 14:51 98.3 F 114 21 112/74 96 - Laboratory Result Diagrams: 02/16/17 16:04 02/16/17 16:04 Lab Statement: Any lab studies that have been ordered have been reviewed, and results considered in the medical decision making process. - Radiology Hip XR Xray Interpretation: No Acute Changes - RIGHT HIP ARTHROPLASTY. NO EVIDENCE OF HARDWARE FAILURE. ED physician has reviewed this report and agrees. Radiology Interpretation Completed By: Radiologist CXR Xray Interpretation: Positive (See Comments) - MODERATE VASCULAR CONGESTIVE FINDINGS. ED physician has reviewed this report and agrees. Radiology Interpretation Completed By: Radiologist - EKG 14:59 Cardiac Rate: Tachycardia EKG Rhythm: Sinus Tachycardia EKG Interpretation: [address] elev. Q waves in I, II, III, AVF, AVL. Incomplete RBBB. Complex Multi-Symp Course/Dx Assessment/Plan: The pt is a 76 y/o F BIBA from [facility] c/o right-sided hip pain s/p a fall one week ago as well as SOB that began in the last hour. The hip pain is constant. The pain is rated 10/10. The pain is aggravated by movement and is alleviated by nothing. She is unable to ambulate. The patient was given a nebulizer en route to [facility] [place]. Pt additionally c/o diaphoresis. Pt denies CP, fever, and cough. PMHx includes COPD. Test results show WBC 17, Hemoglobin 11.6, D-dimer 750. ABG shows a pH of 7.4, pCO2 55, pO2 80, and O2 Sat of 98. Glucose was 144. CRP was 18.7. Influenza A and B were negative. CXR shows moderate vascular congestive findings. Hip XR shows right hip arthroplasty. No evidence of hardware failure. In the ED course, the patient was given Duo-Nebs and Solu-Medrol. I gave the patient fentanyl for the hip pain. However, because the D-dimer was positive and the patient was hypoxic and tachycardic, I ordered a V/Q scan because the patient is allergic to dye. I discussed the case with Dr. Kate, who accepts the patient for admission. - Diagnoses Provider Diagnoses: COPD (chronic obstructive pulmonary disease), Hypoxia, Rule out pulmonary embolism, Right hip pain - Physician Notifications Discussed Care Of Patient With: Ty Kate Time Discussed With Above Provider: 17:41 Instructed by Provider To: Other - Dr. Kate, hospitalist, admits the patient. Discharge - Discharge Plan Condition: Fair Disposition: ADMITTED TO [facility] Referrals: Non Staff,Doctor [Primary Care Provider] - The documentation as recorded by the Iram masters Thomas accurately reflects the service I personally performed and the decisions made by me, Marco A Cole MD.
--- NOTE | 2017-02-19 20:00 | PN ---
Subjective Date of Service: 02/19/17 Interval History: Pt uncomfortable appearing this AM, better in PM . Cough, productive. Back alternates between painful and numb. Pulm consulted after pt reports she had 2 more admission at [facility] this year for pneumonia (4 total). Objective Active Medications: Acetaminophen (Tylenol Tab*) 975 mg PO Q8HR [facility] Last Admin: 02/19/17 13:34 Dose: 975 mg Albuterol/Ipratropium (Duoneb (Albuterol 2.5 Mg/Ipratropium 0.5 Mg)) 1 neb INH Q2H PRN PRN Reason: SOB/WHEEZING Albuterol/Ipratropium (Duoneb (Albuterol 2.5 Mg/Ipratropium 0.5 Mg)) 1 neb INH [id number] AWAKE [facility] Last Admin: 02/19/17 19:42 Dose: 1 neb Carbidopa/Levodopa (Sinemet 25/100 Tab(*)) 1 tab PO 0700,1300,2000 [facility] Last Admin: 02/19/17 13:33 Dose: 1 tab Cholecalciferol (Vitamin D Tab*) 1,000 units PO DAILY [facility] Last Admin: 02/19/17 07:45 Dose: 1,000 units Clonidine HCl (Catapres Tab*) 0.1 mg PO 0700,1600 [facility] Last Admin: 02/19/17 15:23 Dose: 0.1 mg Cyanocobalamin (Vitamin B12 Tab*) 1,000 mcg PO DAILY [facility] Last Admin: 02/19/17 07:46 Dose: 1,000 mcg Diazepam (Valium Tab(*)) 2 mg PO Q6HR PRN PRN Reason: ANXIETY Last Admin: 02/17/17 13:44 Dose: 2 mg Fentanyl (Duragesic Patch 12 Mcg/Hr *) 12 mcg TRANSDERM Q72H [facility] Last Admin: 02/16/17 23:34 Dose: 12 mcg Folic Acid (Folvite Tab*) 1 mg PO DAILY [facility] Last Admin: 02/19/17 07:46 Dose: 1 mg Heparin Sodium (Porcine) (Heparin Vial(*)) 5,000 units SUBCUT Q8HR [facility] Last Admin: 02/19/17 13:35 Dose: 5,000 units Hydromorphone HCl (Dilaudid Inj*) 2 mg IV SLOW PU Q4H PRN PRN Reason: PAIN Last Admin: 02/19/17 11:46 Dose: 2 mg Ceftriaxone Sodium 1,000 mg/ (Sodium Chloride) 50 mls @ 200 mls/hr IVPB Q24H [facility] Ibuprofen (Motrin Tab*) 600 mg PO Q6H PRN PRN Reason: PAIN Last Admin: 02/17/17 23:11 Dose: 600 mg Lidocaine (Lidoderm 5% Patch*) 1 patch TRANSDERM DAILY [facility] Last Admin: 02/19/17 07:43 Dose: 1 patch Lorazepam (Ativan Tab(*)) 1 mg PO BEDTIME PRN PRN Reason: ANXIETY Last Admin: 02/18/17 22:17 Dose: 1 mg Losartan Potassium (Cozaar Tab*) 25 mg PO DAILY [facility] Last Admin: 02/19/17 07:46 Dose: 25 mg Magnesium Hydroxide (Milk Of Magnesia Liq*) 30 ml PO BEDTIME PRN PRN Reason: CONSTIPATION Mirtazapine (Remeron Tab*) 7.5 mg PO BEDTIME [facility] Last Admin: 02/18/17 20:05 Dose: 7.5 mg Mometasone Furoate/Formoterol Fumar (Dulera 200/5 Mdi*) 2 puff INH BID [facility] Last Admin: 02/19/17 19:39 Dose: 2 puff Montelukast Sodium (Singulair Tab*) 10 mg PO BEDTIME [facility] Last Admin: 02/18/17 20:04 Dose: 10 mg Oxycodone HCl (Roxycodone Tab*) 10 mg PO Q4H PRN PRN Reason: PAIN - SEVERE Last Admin: 02/19/17 15:26 Dose: 10 mg Pharmacy Profile Note (Lidocaine Patch Remove*) 1 note PATCH OFF 2100 [facility] Last Admin: 02/18/17 20:18 Dose: 1 note Pharmacy Profile Note (Fentanyl Patch Check Q Shift) 0 note N/A 0700,1900 [facility] Last Admin: 02/19/17 18:57 Dose: 1 note Polyethylene Glycol/Electrolytes (Miralax*) 17 gm PO DAILY PRN PRN Reason: CONSTIPATION Prednisone (Deltasone Tab*) 40 mg PO DAILY [facility] Last Admin: 02/19/17 07:46 Dose: 40 mg Senna (Senokot Tab*) 2 tab PO DAILY PRN PRN Reason: CONSTIPATION Last Admin: 02/19/17 07:46 Dose: 2 tab Sertraline HCl (Zoloft*) 100 mg PO BID [facility] Last Admin: 02/19/17 07:46 Dose: 100 mg Vital Signs 02/18/17 02/18/17 02/18/17 20:00 20:23 22:17 Temperature Pulse Rate 100 Respiratory 25 20 20 Rate Blood Pressure (mmHg) O2 Sat by Pulse 95 Oximetry 02/18/17 02/19/17 02/19/17 23:56 01:51 03:19 Temperature 97.9 F Pulse Rate 92 Respiratory 18 19 20 Rate Blood Pressure 98/52 (mmHg) O2 Sat by Pulse 97 Oximetry 02/19/17 02/19/17 02/19/17 04:43 06:02 07:45 Temperature 97.3 F Pulse Rate 91 Respiratory 16 16 18 Rate Blood Pressure 122/67 (mmHg) O2 Sat by Pulse 98 Oximetry 02/19/17 02/19/17 02/19/17 07:59 08:00 10:55 Temperature 97.5 F Pulse Rate 88 Respiratory 20 18 20 Rate Blood Pressure 126/68 (mmHg) O2 Sat by Pulse 97 Oximetry 02/19/17 02/19/17 02/19/17 10:56 11:30 11:46 Temperature 98.3 F Pulse Rate 80 97 Respiratory 20 20 Rate Blood Pressure 141/74 (mmHg) O2 Sat by Pulse 95 Oximetry 02/19/17 02/19/17 02/19/17 13:40 15:00 15:11 Temperature 97.2 F Pulse Rate 102 Respiratory 20 88 16 Rate Blood Pressure 133/73 (mmHg) O2 Sat by Pulse 93 Oximetry 02/19/17 02/19/17 02/19/17 15:26 17:38 19:44 Temperature Pulse Rate 98 Respiratory 22 22 16 Rate Blood Pressure (mmHg) O2 Sat by Pulse 96 Oximetry Oxygen Devices in Use Now: Nasal Cannula Appearance: Intermittently uncomfortable appearing. Eyes: No Scleral Icterus, PERRLA Ears/Nose/Mouth/Throat: NL Teeth, Lips, Gums, Mucous Membranes Moist Neck: NL Appearance and Movements; NL JVP, Trachea Midline Respiratory: - - diffuse rhonchi. occasional expiratory wheezing. no rales Cardiovascular: NL Sounds; No Murmurs; No JVD, - - tachycardic Abdominal: NL Sounds; No Tenderness; No Distention Extremities: No Edema, No Clubbing, Cyanosis Skin: No Rash or Ulcers, No Nodules or Sclerosis Neurological: Alert and Oriented x 3, NL Muscle Strength and Tone Result Diagrams: 02/19/17 06:01 02/19/17 06:01 Additional Lab and Data: Laboratory Results - last 24 hr 02/19/17 02/19/17 06:01 06:01 WBC 13.0 H RBC 3.83 L Hgb 9.7 L Hct 30 L MCV 79 L MCH 25 L MCHC 32 RDW 19 H Plt Count 233 MPV 7 L Neut % (Auto) 83.3 H Lymph % (Auto) 9.6 L [place] % (Auto) 6.6 Eos % (Auto) 0.4 Baso % (Auto) 0.1 Absolute Neuts (auto) 10.8 H Absolute Lymphs (auto) 1.2 Absolute Monos (auto) 0.9 H Absolute Eos (auto) 0.1 Absolute Basos (auto) 0 Absolute Nucleated RBC 0 Nucleated RBC % 0 Sodium 142 Potassium 3.8 Chloride 98 L Carbon Dioxide 40 H Anion Gap 4 BUN 23 Creatinine 0.79 Est GFR ( Amer) 90.8 Est GFR (Non-Af Amer) 70.6 BUN/Creatinine Ratio 29.1 H Glucose 112 H Calcium 9.2 Microbiology and Other Data: Microbiology 02/16/17 16:52 Blood Venous Aerobic Blood Culture - Preliminary No Growth Day 3 02/16/17 16:52 Blood Venous Anaerobic Blood Culture - Preliminary No Growth Day 3 02/16/17 16:04 Blood Venous Aerobic Blood Culture - Preliminary No Growth Day 3 02/16/17 16:04 Blood Venous Anaerobic Blood Culture - Preliminary No Growth Day 3 02/17/17 13:50 Sputum Expectorated Gram Stain - Final 02/17/17 13:50 Sputum Expectorated Sputum Culture - Preliminary Serratia Marcescens Assess/Plan/Problems-Billing Assessment: 76 yo female PMH COPD, parkinson's dz, recent numerous falls with fractures and recent pneumonia p/w leukocytosis, tachycardia, lactic acidosis, continued pain from recent sacral fracture. Acute on Chronic respiratory failure. ECHO with diastolic dysfunction. Sepsis 2/2 Serratia Marcescens pna (her 4th pna admission this year including [facility] -> Pulm consulted. Now ceftriaxone (sens). - Patient Problems (1) Acute on chronic respiratory failure with hypoxemia Current Visit: No Status: Acute Code(s): J96.21 - ACUTE AND CHRONIC RESPIRATORY FAILURE WITH HYPOXIA SNOMED Code(s): 48187294067936006 Comment: Serratia marcescens on sputum. CT chest 02/18 with continued air bronchograms and consolidative changes. Switched back to ceftriaxone (sens). MRSA nares negative. - Recent pna (required vapotherm in ICU), treated with zosyn x 3days then levaquin. In fact 2 more [facility] admissions this year for pna. Consulted Dr. Jw Mantilla, appreciate recs - ECHO with diastolic dysfunction. - Hx COPD, chronic 3L. on prednisone 40mg daily. nebulizers (back to q6; q2 prn ) (2) COPD (chronic obstructive pulmonary disease) Current Visit: No Status: Acute Code(s): J44.9 - CHRONIC OBSTRUCTIVE PULMONARY DISEASE, UNSPECIFIED SNOMED Code(s): 54279311 Comment: prednisone 40mg daily, s/p solumedrol 125mg in ED. nelson roberts duonebs. (3) HTN (hypertension) Current Visit: No Status: Acute Code(s): I10 - ESSENTIAL (PRIMARY) HYPERTENSION SNOMED Code(s): 19213171 Comment: clonidine 0.1mg BID, losartan 25 stopped diuresis. (4) Anxiety Current Visit: No Status: Acute Code(s): F41.9 - ANXIETY DISORDER, UNSPECIFIED SNOMED Code(s): 18117871 Comment: zoloft 100mg bid (5) Parkinson disease Current Visit: No Status: Acute Code(s): G20 - PARKINSON'S DISEASE SNOMED Code(s): 34598791 Comment: sinemet (6) Sacral insufficiency fracture with routine healing Current Visit: No Status: Acute Code(s): M84.48XD - PATHOLOGICAL FRACTURE, OTH SITE, SUBS FOR FX W ROUTN HEAL SNOMED Code(s): 971657196 Comment: WBAT PT lidocaine patch fentanyl patch 12mcg oxycodone 10mg q4h prn pain still not controlled add dilaudid IV 2 q4 prn but avoid benzo prns if given. (7) DVT prophylaxis Current Visit: No Status: Acute Code(s): BMI1025 - SNOMED Code(s): 207338567 Comment: heparin ppx Status and Disposition: medicine inpatient. Attending: Ty Kate
[2017-02-19] MEDS: Montelukast Sodium TAB* 10 MG PO SCH (20:19)
[2017-02-19] MEDS: Mirtazapine TAB* 15 MG PO SCH (20:19)
[2017-02-19] MEDS: LORazepam TAB(*) 1 MG PO PRN (20:19)
[2017-02-19] MEDS: Lidocaine Patch REMOVE* 1 NOTE MISC PATCH OFF SCH (20:31)
[2017-02-19] MEDS: fentaNYL PATCH 12 MCG/HR TRANSDERM SCH (22:04)
--- NOTE | 2017-02-19 22:36 | CONS ---
PULMONARY CONSULTATION REPORT: DATE OF CONSULT: 02/19/17 CONSULTATION REQUESTED BY: Dr. Ty Kate. REASON FOR CONSULT: Evaluation of hypoxemic respiratory failure, recurrent pneumonia. HISTORY OF PRESENT ILLNESS: The patient is 76-year-old obese female with history of multiple falls, resident of long-term, who was admitted after fall on 01/30/17 at long-term, mechanical fall, status post open reduction internal fixation of right hip, and was discharged to short-term rehab in October , and was at [facility], and was transported back to the hospital again in November. CT scan at that time revealed right sacral ala fracture, nonoperative. The patient was brought in to the emergency room at this time for evaluation of tachycardia, tachypnea. The patient was noted to be tachycardic at 116 heart rate, O2 sats of 90% on 3 L oxygen, which she has chronically been on. The patient was noted to have worsening pneumonia and was started on broad- spectrum antibiotics. Pulmonary consultation was requested given persistent pneumonia and frequent pneumonias. I have personally reviewed her chest x-ray and CT scan of the chest. CT scan of the chest performed on 02/18/17 is suggestive of consolidation in the left lower lobe and right middle lobe. The patient also with air bronchograms in the right middle lobe and left lower lobe. The patient with concern for aspiration pneumonia, was seen by Speech and Swallow and was recommended to have thick liquids. The patient is poor historian, is not able to provide much history. The patient reports feeling hot. She is diaphoretic. As per bedside RN, the patient has significant diaphoresis. She is currently on broad-spectrum antibiotics for pneumonia. She was seen by infectious disease specialist. PAST MEDICAL HISTORY: 1. Parkinson's. 2. Sacral fracture. 3. COPD. 4. Hypertension. 5. Chronic respiratory failure secondary to pneumonia. PAST SURGICAL HISTORY: Bilateral knee replacement, right total hip replacement , Shawanda's procedure. MEDICATIONS: 1. Tylenol. 2. Advair. 3. Atrovent. 4. Carbidopa and levodopa. 5. Cholecalciferol. 6. Clonidine. 7. Valium. 8. DuoNeb. 9. Fentanyl patch. 10. Folic acid. 11. Lasix. 12. Glycerin. 13. Ibuprofen. 14. Lidocaine. 15. Losartan. 16. Milk of magnesia. 17. Remeron. 18. Montelukast. 19. Oxycodone. 20. Polyethylene glycol. 21. Potassium chloride. 22. Prednisone. 23. Senokot. 24. Sertraline. 25. Vitamin B12. 26. Vitamin B6. ALLERGIES: ASPIRIN, MORPHINE, IODINE. FAMILY HISTORY: Mother with heart attack and father of natural causes at 93. SOCIAL HISTORY: Nonsmoker, does not drink. Her is healthcare proxy and she is currently in rehab facility. REVIEW OF SYSTEMS: Limited secondary to the patient being a poor historian. Denies fevers, chills, nausea, vomiting, diarrhea, or constipation. Reports sweating and feeling hot. Right-sided hip pain is slightly better. PHYSICAL EXAM: The patient lying in bed, in no apparent distress, is clammy. Vital Signs: Temperature 98.3, pulse 97 beats per minute, respiratory rate 20 per minute, O2 sat 95% on 3.5 L, blood pressure 141/74. HEENT: Pupils equal, reactive to light. Mucous membranes moist. Neck: Supple. No lymphadenopathy. Lungs: Expiratory wheeze present, rhonchi present. Cardiovascular: S1, S2 present, regular. No murmurs. Abdomen: Obese. Bowel sounds present, nontender, nondistended. Extremities: Diaphoretic. Moves all extremities spontaneously. Neuro: No focal deficits noted, oriented x2. DIAGNOSTIC STUDIES/LAB DATA: WBC count 13.0, hemoglobin 9.7, hematocrit 30, platelet count 233. Blood gas analysis from 02/16/17 shows pH of 7.41, PCO2 of 55, and PO2 of 80, bicarb of 31 indicative of compensated respiratory acidosis. Sodium 142, potassium 3.8, chloride 98, bicarb 40, BUN 23, creatinine 0.79, lactic acid 2.4. Influenza A and B negative. CT scan as described above in HPI. IMPRESSION/RECOMMENDATION: 76-year-old female with dementia; chronic respiratory failure, on O2 supplementation; chronic obstructive pulmonary disease, with recurrent admissions for pneumonia. The patient with bilateral pneumonia, sputum culture is positive for Serratia marcescens in sputum. CT chest with air bronchograms and consolidative changes. Suspect aspiration pneumonia given her underlying condition. Less likely to be endobronchial obstruction given bilateral pneumonia. The patient on broad-spectrum antibiotics. Would recommend strict aspiration precautions. Continue with O2 supplementation. Continue with prednisone and nebulizers. Recommend chest PT, bronchodilators. She is high risk for bronchoscopy Continue with prednisone taper. Speech and swallow evaluation. Thank you for allowing me to participate in the care of your patient. Will follow up with you. [id number]/[facility] #: [id number] JEN
[2017-02-20] MEDS: Albuterol/Ipratropium NEB.SOL* Albuterol 2.5 MG/Ipratropium 0.5 MG 3 ML INH SCH ×4 (03:12→20:12)
[2017-02-20] MEDS: HYDROmorphone INJ* 2 MG/ML CARPUJECT SYRINGE IV SLOW PU PRN (06:00)
[2017-02-20] MEDS: Heparin VIAL(*) 5000 UNITS/ML VIAL (FIVE THOUSAND) SUBCUT SCH ×3 (06:01→21:28)
[2017-02-20] MEDS: cloNIDine TAB* 0.1 MG PO SCH ×2 (06:01→16:42)
[2017-02-20] MEDS: Carbidopa/Levodop 25/100 MG TAB(*) PO SCH ×3 (06:01→21:33)
[2017-02-20] MEDS: Acetaminophen TAB* 325 MG PO SCH ×3 (06:01→21:28)
[2017-02-20] MEDS ORDERED: Acetaminophen TAB* 325 MG ONE (06:06)
[2017-02-20] MEDS: fentaNYL Patch Check Q Shift 1 NOTE SCH ×2 (06:47→19:04)
[2017-02-20] MEDS: Mometasone/Formoter 200/5 MDI INH SCH ×2 (07:09→20:10)
[2017-02-20] MEDS: Lidocaine PATCH 5%* 1 PATCH TRANSDERM SCH (07:41)
[2017-02-20] MEDS: cefTRIAXone VIAL(*) 1,000 MG in D5W 50 ML BAG* 50 ML IVPB SCH (07:41)
[2017-02-20] MEDS: Cyanocobalamin TAB* 500 MCG PO SCH (07:42)
[2017-02-20] MEDS: Losartan TAB* 25 MG PO SCH (07:43)
[2017-02-20] MEDS: Sertraline* 100 MG TAB PO SCH ×2 (07:43→21:27)
[2017-02-20] MEDS: Folic Acid TAB* 1 MG PO SCH (07:43)
[2017-02-20] MEDS: predniSONE TAB* 20 MG PO SCH (07:43)
[2017-02-20] MEDS: Cholecalciferol TAB* 1000 UNITS PO SCH (07:43)
[2017-02-20 08:49] LABS: Hematocrit 31 % (35-47); Hemoglobin 9.9 g/dl (12.0-16.0); Mean Corpuscular HGB Conc 33 g/dl (31-36); Mean Corpuscular Hemoglobin 26 pg (27-31); Mean Corpuscular Volume 79 fL (80-97); Mean Platelet Volume 7 um3 (7.4-10.4); Red Blood Count 3.83 10^6/ul (4.0-5.4); Red Cell Distribution Width 19 % (10.5-15); White Blood Count 12.4 10^3/ul (3.5-10.8)
[2017-02-20 08:52] LABS: Add Diff/Slide Review? Slide Review Added; Comments Flag Yes
[2017-02-20 08:58] LABS: Calcium 9.3 mg/dL (8.6-10.3); EGFR African American 99.4 (>60); EGFR Non-African American 77.3 (>60); Potassium 3.7 mmol/L (3.5-5.0)
--- NOTE | 2017-02-20 10:00 | PN ---
Subjective Date of Service: 02/20/17 Interval History: Lactic Acid cleared. WBC down to 12.4, afebrile. Still compliant of productive cough and some difficulty breathing. Pain with standing/walking with PT. Chest physio ordered. Objective Active Medications: Acetaminophen (Tylenol Tab*) 975 mg PO Q8HR [facility] Last Admin: 02/20/17 06:01 Dose: 975 mg Albuterol/Ipratropium (Duoneb (Albuterol 2.5 Mg/Ipratropium 0.5 Mg)) 1 neb INH Q2H PRN PRN Reason: SOB/WHEEZING Albuterol/Ipratropium (Duoneb (Albuterol 2.5 Mg/Ipratropium 0.5 Mg)) 1 neb INH [id number] AWAKE [facility] Last Admin: 02/20/17 07:08 Dose: 1 neb Carbidopa/Levodopa (Sinemet 25/100 Tab(*)) 1 tab PO 0700,1300,2000 [facility] Last Admin: 02/20/17 06:01 Dose: 1 tab Cholecalciferol (Vitamin D Tab*) 1,000 units PO DAILY [facility] Last Admin: 02/20/17 07:43 Dose: 1,000 units Clonidine HCl (Catapres Tab*) 0.1 mg PO 0700,1600 [facility] Last Admin: 02/20/17 06:01 Dose: 0.1 mg Cyanocobalamin (Vitamin B12 Tab*) 1,000 mcg PO DAILY [facility] Last Admin: 02/20/17 07:42 Dose: 1,000 mcg Diazepam (Valium Tab(*)) 2 mg PO Q6HR PRN PRN Reason: ANXIETY Last Admin: 02/17/17 13:44 Dose: 2 mg Fentanyl (Duragesic Patch 12 Mcg/Hr *) 12 mcg TRANSDERM Q72H [facility] Last Admin: 02/19/17 22:04 Dose: 12 mcg Folic Acid (Folvite Tab*) 1 mg PO DAILY [facility] Last Admin: 02/20/17 07:43 Dose: 1 mg Heparin Sodium (Porcine) (Heparin Vial(*)) 5,000 units SUBCUT Q8HR [facility] Last Admin: 02/20/17 06:01 Dose: 5,000 units Hydromorphone HCl (Dilaudid Inj*) 2 mg IV SLOW PU Q4H PRN PRN Reason: PAIN Last Admin: 02/20/17 06:00 Dose: 2 mg Ceftriaxone Sodium 1,000 mg/ (Dextrose) 50 mls @ 200 mls/hr IVPB Q24H [facility] Last Admin: 02/20/17 07:41 Dose: 200 mls/hr Ibuprofen (Motrin Tab*) 600 mg PO Q6H PRN PRN Reason: PAIN Last Admin: 02/17/17 23:11 Dose: 600 mg Lidocaine (Lidoderm 5% Patch*) 1 patch TRANSDERM DAILY [facility] Last Admin: 02/20/17 07:41 Dose: 1 patch Lorazepam (Ativan Tab(*)) 1 mg PO BEDTIME PRN PRN Reason: ANXIETY Last Admin: 02/19/17 20:19 Dose: 1 mg Losartan Potassium (Cozaar Tab*) 25 mg PO DAILY [facility] Last Admin: 02/20/17 07:43 Dose: 25 mg Magnesium Hydroxide (Milk Of Magnesia Liq*) 30 ml PO BEDTIME PRN PRN Reason: CONSTIPATION Mirtazapine (Remeron Tab*) 7.5 mg PO BEDTIME [facility] Last Admin: 02/19/17 20:19 Dose: 7.5 mg Mometasone Furoate/Formoterol Fumar (Dulera 200/5 Mdi*) 2 puff INH BID [facility] Last Admin: 02/20/17 07:09 Dose: 2 puff Montelukast Sodium (Singulair Tab*) 10 mg PO BEDTIME [facility] Last Admin: 02/19/17 20:19 Dose: 10 mg Oxycodone HCl (Roxycodone Tab*) 10 mg PO Q4H PRN PRN Reason: PAIN - SEVERE Last Admin: 02/19/17 20:24 Dose: 10 mg Pharmacy Profile Note (Lidocaine Patch Remove*) 1 note PATCH OFF 2100 [facility] Last Admin: 02/19/17 20:31 Dose: 1 note Pharmacy Profile Note (Fentanyl Patch Check Q Shift) 0 note N/A 0700,1900 [facility] Last Admin: 02/20/17 06:47 Dose: 1 note Polyethylene Glycol/Electrolytes (Miralax*) 17 gm PO DAILY PRN PRN Reason: CONSTIPATION Prednisone (Deltasone Tab*) 40 mg PO DAILY [facility] Last Admin: 02/20/17 07:43 Dose: 40 mg Senna (Senokot Tab*) 2 tab PO DAILY PRN PRN Reason: CONSTIPATION Last Admin: 02/19/17 07:46 Dose: 2 tab Sertraline HCl (Zoloft*) 100 mg PO BID [facility] Last Admin: 02/20/17 07:43 Dose: 100 mg Vital Signs 02/19/17 02/19/17 02/19/17 10:55 10:56 11:30 Temperature 98.3 F Pulse Rate 80 97 Respiratory 20 20 Rate Blood Pressure 141/74 (mmHg) O2 Sat by Pulse 95 Oximetry 02/19/17 02/19/17 02/19/17 11:46 13:40 15:00 Temperature Pulse Rate Respiratory 20 20 88 Rate Blood Pressure (mmHg) O2 Sat by Pulse Oximetry 02/19/17 02/19/17 02/19/17 15:11 15:26 17:38 Temperature 97.2 F Pulse Rate 102 Respiratory 16 22 22 Rate Blood Pressure 133/73 (mmHg) O2 Sat by Pulse 93 Oximetry 02/19/17 02/19/17 02/19/17 19:44 20:00 20:19 Temperature Pulse Rate 98 Respiratory 16 20 20 Rate Blood Pressure (mmHg) O2 Sat by Pulse 96 Oximetry 02/19/17 02/19/17 02/19/17 20:24 22:04 23:28 Temperature 98.3 F Pulse Rate 103 Respiratory 20 22 19 Rate Blood Pressure 134/62 (mmHg) O2 Sat by Pulse 97 Oximetry 02/20/17 02/20/17 02/20/17 01:05 01:06 03:58 Temperature 98.2 F Pulse Rate 92 Respiratory 18 18 16 Rate Blood Pressure 131/80 (mmHg) O2 Sat by Pulse 97 Oximetry 02/20/17 02/20/17 02/20/17 06:00 07:10 07:48 Temperature 98.0 F Pulse Rate 92 95 Respiratory 20 17 20 Rate Blood Pressure 137/69 (mmHg) O2 Sat by Pulse 97 94 Oximetry 02/20/17 02/20/17 02/20/17 07:51 07:54 09:33 Temperature Pulse Rate 95 Respiratory 20 14 14 Rate Blood Pressure 139/63 (mmHg) O2 Sat by Pulse 95 Oximetry Oxygen Devices in Use Now: Nasal Cannula Appearance: NAD, less diaphoretic Ears/Nose/Mouth/Throat: NL Teeth, Lips, Gums, Mucous Membranes Moist Neck: NL Appearance and Movements; NL JVP Respiratory: - - coarse rhonchi on left > right. Exp wheezing. no rales. Abdominal: NL Sounds; No Tenderness; No Distention, No Hepatosplenomegaly Extremities: No Edema, No Clubbing, Cyanosis Skin: No Rash or Ulcers, No Nodules or Sclerosis Neurological: Alert and Oriented x 3, NL Muscle Strength and Tone Result Diagrams: 02/20/17 08:08 02/20/17 08:08 Additional Lab and Data: Laboratory Results - last 24 hr 02/20/17 02/20/17 02/20/17 08:08 08:08 08:08 WBC 12.4 H RBC 3.83 L Hgb 9.9 L Hct 31 L MCV 79 L MCH 26 L MCHC 33 RDW 19 H Plt Count 241 MPV 7 L Neut % (Auto) 78.4 Lymph % (Auto) 14.5 L [place] % (Auto) 6.0 Eos % (Auto) 0.8 Baso % (Auto) 0.3 Absolute Neuts (auto) 9.7 H Absolute Lymphs (auto) 1.8 Absolute Monos (auto) 0.7 Absolute Eos (auto) 0.1 Absolute Basos (auto) 0 Absolute Nucleated RBC 0.01 Nucleated RBC % 0.1 Sodium 140 Potassium 3.7 Chloride 96 L Carbon Dioxide 39 H Anion Gap 5 BUN 19 Creatinine 0.73 Est GFR ( Amer) 99.4 Est GFR (Non-Af Amer) 77.3 BUN/Creatinine Ratio 26.0 H Glucose 147 H Lactic Acid 1.7 Calcium 9.3 Microbiology and Other Data: Microbiology 02/17/17 13:50 Sputum Expectorated Gram Stain - Final 02/17/17 13:50 Sputum Expectorated Sputum Culture - Final Serratia Marcescens Normal Tayler 02/16/17 16:52 Blood Venous Aerobic Blood Culture - Preliminary No Growth Day 3 02/16/17 16:52 Blood Venous Anaerobic Blood Culture - Preliminary No Growth Day 3 02/16/17 16:04 Blood Venous Aerobic Blood Culture - Preliminary No Growth Day 3 02/16/17 16:04 Blood Venous Anaerobic Blood Culture - Preliminary No Growth Day 3 02/16/17 16:56 Nasal Nasal Screen MRSA (PCR)([facility]) - Final Mrsa Negative 02/16/17 16:56 Nasopharyngeal Influenza Types A,B Antigen ([facility]) - Final Specimen received for Influenza A/B Molecular testing Assess/Plan/Problems-Billing Assessment: 76 yo female PMH COPD, parkinson's dz, recent numerous falls with fractures and recent pneumonia p/w leukocytosis, tachycardia, lactic acidosis, continued pain from recent sacral fracture. Acute on Chronic respiratory failure. ECHO with diastolic dysfunction. Sepsis 2/2 Serratia Marcescens pna (her 4th pna admission this year including [facility] -> Pulm consulted. Now ceftriaxone (sens). Lactic Acid finally cleared. - Patient Problems (1) Acute on chronic respiratory failure with hypoxemia Current Visit: No Status: Acute Code(s): J96.21 - ACUTE AND CHRONIC RESPIRATORY FAILURE WITH HYPOXIA SNOMED Code(s): 26770909888906295 Comment: Serratia marcescens on sputum. CT chest 02/18 with continued air bronchograms and consolidative changes. Switched back to ceftriaxone (sens). MRSA nares negative. - Recent pna (required vapotherm in ICU), treated with zosyn x 3days then levaquin. In fact 2 more [facility] admissions this year for pna. Consulted Dr. Jw Mantilla, appreciate recs - ECHO with diastolic dysfunction. - Hx COPD, chronic 3L. on prednisone 40mg daily. nebulizers (q6; q2 prn) - chest physiotherapy ordered. (2) COPD (chronic obstructive pulmonary disease) Current Visit: No Status: Acute Code(s): J44.9 - CHRONIC OBSTRUCTIVE PULMONARY DISEASE, UNSPECIFIED SNOMED Code(s): 48529501 Comment: prednisone 40mg daily taper as able. wheezing. s/p solumedrol 125mg in ED. nelson roberts duonebs. (3) HTN (hypertension) Current Visit: No Status: Acute Code(s): I10 - ESSENTIAL (PRIMARY) HYPERTENSION SNOMED Code(s): 80645733 Comment: clonidine 0.1mg BID, losartan 25 stopped diuresis. (4) Anxiety Current Visit: No Status: Acute Code(s): F41.9 - ANXIETY DISORDER, UNSPECIFIED SNOMED Code(s): 11459323 Comment: zoloft 100mg bid (5) Parkinson disease Current Visit: No Status: Acute Code(s): G20 - PARKINSON'S DISEASE SNOMED Code(s): 00031504 Comment: sinemet (6) Sacral insufficiency fracture with routine healing Current Visit: No Status: Acute Code(s): M84.48XD - PATHOLOGICAL FRACTURE, OTH SITE, SUBS FOR FX W ROUTN HEAL SNOMED Code(s): 751408808 Comment: WBAT PT, not really tolerating lidocaine patch fentanyl patch 12mcg oxycodone 10mg q4h prn dilaudid IV 2 q4 prn but avoid benzo prns if given. (7) DVT prophylaxis Current Visit: No Status: Acute Code(s): NVH8402 - SNOMED Code(s): 584210158 Comment: heparin ppx Status and Disposition: medicine inpatient. Plan to d/c back to [facility] 02/22 Attending: Ty Kate
[2017-02-20] MEDS: oxyCODONE TAB* 5 MG TAB PO PRN ×3 (11:50→21:28)
[2017-02-20] MEDS: LORazepam TAB(*) 1 MG PO PRN (21:27)
[2017-02-20] MEDS: Montelukast Sodium TAB* 10 MG PO SCH (21:27)
[2017-02-20] MEDS: Mirtazapine TAB* 15 MG PO SCH (21:28)
[2017-02-20] MEDS: Lidocaine Patch REMOVE* 1 NOTE MISC PATCH OFF SCH (21:38)
[2017-02-21] MEDS: Albuterol/Ipratropium NEB.SOL* Albuterol 2.5 MG/Ipratropium 0.5 MG 3 ML INH SCH ×4 (02:30→19:54)
[2017-02-21] MEDS: Ibuprofen TAB* 600 MG PO PRN (02:34)
[2017-02-21] MEDS: cloNIDine TAB* 0.1 MG PO SCH ×2 (05:58→16:05)
[2017-02-21] MEDS: Acetaminophen TAB* 325 MG PO SCH ×3 (05:58→20:59)
[2017-02-21] MEDS: Heparin VIAL(*) 5000 UNITS/ML VIAL (FIVE THOUSAND) SUBCUT SCH ×3 (05:58→21:02)
[2017-02-21] MEDS: fentaNYL Patch Check Q Shift 1 NOTE SCH ×2 (05:59→18:56)
[2017-02-21] MEDS: Carbidopa/Levodop 25/100 MG TAB(*) PO SCH ×3 (05:59→21:02)
[2017-02-21] MEDS: Mometasone/Formoter 200/5 MDI INH SCH ×2 (07:08→19:54)
[2017-02-21 07:40] LABS: Add Diff/Slide Review? Slide Review Added; Comments Flag Yes; Hematocrit 29 % (35-47); Hemoglobin 9.4 g/dl (12.0-16.0); Mean Corpuscular HGB Conc 33 g/dl (31-36); Mean Corpuscular Hemoglobin 26 pg (27-31); Mean Corpuscular Volume 79 fL (80-97); Mean Platelet Volume 7 um3 (7.4-10.4); Red Cell Distribution Width 19 % (10.5-15); White Blood Count 10.1 10^3/ul (3.5-10.8)
[2017-02-21 07:55] LABS: BUN/Creatinine Ratio 23.5 (8-20); Calcium 9.1 mg/dL (8.6-10.3); EGFR African American 107.9 (>60); EGFR Non-African American 83.9 (>60)
[2017-02-21] MEDS: Lidocaine PATCH 5%* 1 PATCH TRANSDERM SCH (08:08)
[2017-02-21] MEDS: cefTRIAXone VIAL(*) 1,000 MG in D5W 50 ML BAG* 50 ML IVPB SCH (08:08)
[2017-02-21] MEDS: predniSONE TAB* 20 MG PO SCH (08:09)
[2017-02-21] MEDS: Losartan TAB* 25 MG PO SCH (08:09)
[2017-02-21] MEDS: Cholecalciferol TAB* 1000 UNITS PO SCH (08:09)
[2017-02-21] MEDS: Sertraline* 100 MG TAB PO SCH ×2 (08:09→21:00)
[2017-02-21] MEDS: oxyCODONE TAB* 5 MG TAB PO PRN ×3 (08:09→20:31)
[2017-02-21] MEDS: Cyanocobalamin TAB* 500 MCG PO SCH (08:09)
[2017-02-21] MEDS: Folic Acid TAB* 1 MG PO SCH (08:09)
[2017-02-21 08:49] LABS: Magnesium 1.9 mg/dL (1.9-2.7)
--- NOTE | 2017-02-21 13:58 | PN ---
Subjective Date of Service: 02/21/17 Interval History: Pt still feels lousy with pain. SOB/cough slightly better. Stood with PT. Having BMs. Leukocytosis resolved. Objective Active Medications: Acetaminophen (Tylenol Tab*) 975 mg PO Q8HR [facility] Last Admin: 02/21/17 05:58 Dose: 975 mg Albuterol/Ipratropium (Duoneb (Albuterol 2.5 Mg/Ipratropium 0.5 Mg)) 1 neb INH Q2H PRN PRN Reason: SOB/WHEEZING Albuterol/Ipratropium (Duoneb (Albuterol 2.5 Mg/Ipratropium 0.5 Mg)) 1 neb INH [id number] AWAKE [facility] Last Admin: 02/21/17 13:36 Dose: 1 neb Carbidopa/Levodopa (Sinemet 25/100 Tab(*)) 1 tab PO 0700,1300,2000 [facility] Last Admin: 02/21/17 05:59 Dose: 1 tab Cholecalciferol (Vitamin D Tab*) 1,000 units PO DAILY [facility] Last Admin: 02/21/17 08:09 Dose: 1,000 units Clonidine HCl (Catapres Tab*) 0.1 mg PO 0700,1600 [facility] Last Admin: 02/21/17 05:58 Dose: 0.1 mg Cyanocobalamin (Vitamin B12 Tab*) 1,000 mcg PO DAILY [facility] Last Admin: 02/21/17 08:09 Dose: 1,000 mcg Diazepam (Valium Tab(*)) 2 mg PO Q6HR PRN PRN Reason: ANXIETY Last Admin: 02/17/17 13:44 Dose: 2 mg Fentanyl (Duragesic Patch 12 Mcg/Hr *) 12 mcg TRANSDERM Q72H [facility] Last Admin: 02/19/17 22:04 Dose: 12 mcg Folic Acid (Folvite Tab*) 1 mg PO DAILY [facility] Last Admin: 02/21/17 08:09 Dose: 1 mg Heparin Sodium (Porcine) (Heparin Vial(*)) 5,000 units SUBCUT Q8HR [facility] Last Admin: 02/21/17 05:58 Dose: 5,000 units Hydromorphone HCl (Dilaudid Inj*) 2 mg IV SLOW PU Q4H PRN PRN Reason: PAIN Last Admin: 02/20/17 06:00 Dose: 2 mg Ceftriaxone Sodium 1,000 mg/ (Dextrose) 50 mls @ 200 mls/hr IVPB Q24H [facility] Last Admin: 02/21/17 08:08 Dose: 200 mls/hr Ibuprofen (Motrin Tab*) 600 mg PO Q6H PRN PRN Reason: PAIN Last Admin: 02/21/17 02:34 Dose: 600 mg Lidocaine (Lidoderm 5% Patch*) 1 patch TRANSDERM DAILY [facility] Last Admin: 02/21/17 08:08 Dose: 1 patch Lorazepam (Ativan Tab(*)) 1 mg PO BEDTIME PRN PRN Reason: ANXIETY Last Admin: 02/20/17 21:27 Dose: 1 mg Losartan Potassium (Cozaar Tab*) 25 mg PO DAILY [facility] Last Admin: 02/21/17 08:09 Dose: 25 mg Magnesium Hydroxide (Milk Of Magnesia Liq*) 30 ml PO BEDTIME PRN PRN Reason: CONSTIPATION Mirtazapine (Remeron Tab*) 7.5 mg PO BEDTIME [facility] Last Admin: 02/20/17 21:28 Dose: 7.5 mg Mometasone Furoate/Formoterol Fumar (Dulera 200/5 Mdi*) 2 puff INH BID [facility] Last Admin: 02/21/17 07:08 Dose: 2 puff Montelukast Sodium (Singulair Tab*) 10 mg PO BEDTIME [facility] Last Admin: 02/20/17 21:27 Dose: 10 mg Oxycodone HCl (Roxycodone Tab*) 10 mg PO Q4H PRN PRN Reason: PAIN - SEVERE Last Admin: 02/21/17 08:09 Dose: 10 mg Pharmacy Profile Note (Lidocaine Patch Remove*) 1 note PATCH OFF 2100 [facility] Last Admin: 02/20/17 21:38 Dose: 1 note Pharmacy Profile Note (Fentanyl Patch Check Q Shift) 0 note N/A 0700,1900 [facility] Last Admin: 02/21/17 05:59 Dose: 1 note Polyethylene Glycol/Electrolytes (Miralax*) 17 gm PO DAILY PRN PRN Reason: CONSTIPATION Potassium Chloride (Klor-Con Liquid*) 40 meq PO DAILY [facility] Prednisone (Deltasone Tab*) 40 mg PO DAILY [facility] Last Admin: 02/21/17 08:09 Dose: 40 mg Senna (Senokot Tab*) 2 tab PO DAILY PRN PRN Reason: CONSTIPATION Last Admin: 02/19/17 07:46 Dose: 2 tab Sertraline HCl (Zoloft*) 100 mg PO BID [facility] Last Admin: 02/21/17 08:09 Dose: 100 mg Vital Signs 02/20/17 02/20/17 02/20/17 15:49 16:42 20:00 Temperature 97.9 F Pulse Rate 99 Respiratory 16 16 22 Rate Blood Pressure 116/65 (mmHg) O2 Sat by Pulse 97 Oximetry 02/20/17 02/20/17 02/20/17 20:10 20:13 21:27 Temperature 98.1 F Pulse Rate 93 94 Respiratory 19 18 22 Rate Blood Pressure 134/73 (mmHg) O2 Sat by Pulse 99 98 Oximetry 02/20/17 02/20/17 02/21/17 21:28 23:36 00:05 Temperature 98.1 F Pulse Rate 88 Respiratory 22 19 16 Rate Blood Pressure 105/50 (mmHg) O2 Sat by Pulse 97 Oximetry 02/21/17 02/21/17 02/21/17 00:06 03:40 04:07 Temperature 98.2 F Pulse Rate 91 Respiratory 16 18 16 Rate Blood Pressure 146/92 (mmHg) O2 Sat by Pulse 100 Oximetry 02/21/17 02/21/17 02/21/17 07:17 08:00 08:09 Temperature 97.9 F Pulse Rate 88 88 Respiratory 18 18 18 Rate Blood Pressure 111/56 (mmHg) O2 Sat by Pulse 98 97 Oximetry 02/21/17 02/21/17 02/21/17 10:52 11:30 13:38 Temperature Pulse Rate 103 Respiratory 18 18 17 Rate Blood Pressure (mmHg) O2 Sat by Pulse 98 Oximetry Oxygen Devices in Use Now: Nasal Cannula Appearance: NAD Eyes: No Scleral Icterus, PERRLA Ears/Nose/Mouth/Throat: NL Teeth, Lips, Gums Respiratory: Symmetrical Chest Expansion and Respiratory Effort, - - expiratory wheezing. rhonchi. Cardiovascular: NL Sounds; No Murmurs; No JVD, RRR Extremities: No Edema Skin: No Rash or Ulcers, No Nodules or Sclerosis Neurological: Alert and Oriented x 3 Result Diagrams: 02/21/17 07:24 02/21/17 07:24 Additional Lab and Data: Laboratory Results - last 24 hr 02/21/17 02/21/17 07:24 07:24 WBC 10.1 RBC 3.60 L Hgb 9.4 L Hct 29 L MCV 79 L MCH 26 L MCHC 33 RDW 19 H Plt Count 203 MPV 7 L Neut % (Auto) 75.6 Lymph % (Auto) 16.9 L [place] % (Auto) 5.6 Eos % (Auto) 1.2 Baso % (Auto) 0.7 Absolute Neuts (auto) 7.6 Absolute Lymphs (auto) 1.7 Absolute Monos (auto) 0.6 Absolute Eos (auto) 0.1 Absolute Basos (auto) 0.1 Absolute Nucleated RBC 0 Nucleated RBC % 0 Sodium 140 Potassium 3.0 L Chloride 97 L Carbon Dioxide 42 H* Anion Gap 1 L BUN 16 Creatinine 0.68 Est GFR ( Amer) 107.9 Est GFR (Non-Af Amer) 83.9 BUN/Creatinine Ratio 23.5 H Glucose 97 Calcium 9.1 Magnesium 1.9 Microbiology and Other Data: Microbiology 02/16/17 16:52 Blood Venous Aerobic Blood Culture - Preliminary No Growth Day 4 02/16/17 16:52 Blood Venous Anaerobic Blood Culture - Preliminary No Growth Day 4 02/16/17 16:04 Blood Venous Aerobic Blood Culture - Preliminary No Growth Day 4 02/16/17 16:04 Blood Venous Anaerobic Blood Culture - Preliminary No Growth Day 4 02/17/17 13:50 Sputum Expectorated Gram Stain - Final 02/17/17 13:50 Sputum Expectorated Sputum Culture - Final Serratia Marcescens Normal Tayler 02/16/17 16:56 Nasal Nasal Screen MRSA (PCR)(CHANG) - Final Mrsa Negative 02/16/17 16:56 Nasopharyngeal Influenza Types A,B Antigen (CHANG) - Final Specimen received for Influenza A/B Molecular testing Assess/Plan/Problems-Billing Assessment: 76 yo female PMH COPD, parkinson's dz, recent numerous falls with fractures and recent pneumonia p/w leukocytosis, tachycardia, lactic acidosis, continued pain from recent sacral fracture. Acute on Chronic respiratory failure. ECHO with diastolic dysfunction. Sepsis 2/2 Serratia Marcescens pna (her 4th pna admission this year including [facility] -> Pulm consulted. Now ceftriaxone (sens). - Patient Problems (1) Acute on chronic respiratory failure with hypoxemia Current Visit: No Status: Acute Code(s): J96.21 - ACUTE AND CHRONIC RESPIRATORY FAILURE WITH HYPOXIA SNOMED Code(s): 23322257286220313 Comment: Serratia marcescens on sputum. CT chest 02/18 with continued air bronchograms and consolidative changes. Continue ceftriaxone (sens), day 4 (+ 1 extra day azithro). MRSA nares negative. - Recent pna (required vapotherm in ICU), treated with zosyn x 3days then levaquin. In fact 2 more [facility] admissions this year for pna. Consulted Dr. Jw Mantilla, appreciate recs - ECHO with diastolic dysfunction. - Hx COPD, chronic 3L. on prednisone 40mg daily. nebulizers (q6; q2 prn) - chest physiotherapy ordered. still junky sounding and intermittently tachypneic (2) COPD (chronic obstructive pulmonary disease) Current Visit: No Status: Acute Code(s): J44.9 - CHRONIC OBSTRUCTIVE PULMONARY DISEASE, UNSPECIFIED SNOMED Code(s): 31399495 Comment: prednisone 40mg daily taper as able. wheezing. s/p solumedrol 125mg in ED. nelson roberts duonebs. (3) HTN (hypertension) Current Visit: No Status: Acute Code(s): I10 - ESSENTIAL (PRIMARY) HYPERTENSION SNOMED Code(s): 32349721 Comment: clonidine 0.1mg BID, losartan 25 stopped diuresis. (4) Anxiety Current Visit: No Status: Acute Code(s): F41.9 - ANXIETY DISORDER, UNSPECIFIED SNOMED Code(s): 45847366 Comment: zoloft 100mg bid (5) Parkinson disease Current Visit: No Status: Acute Code(s): G20 - PARKINSON'S DISEASE SNOMED Code(s): 77373816 Comment: sinemet (6) Sacral insufficiency fracture with routine healing Current Visit: No Status: Acute Code(s): M84.48XD - PATHOLOGICAL FRACTURE, OTH SITE, SUBS FOR FX W ROUTN HEAL SNOMED Code(s): 397680107 Comment: WBAT PT, not really tolerating lidocaine patch fentanyl patch 12mcg oxycodone 10mg q4h prn dilaudid IV 2 q4 prn but avoid benzo prns if given. (7) DVT prophylaxis Current Visit: No Status: Acute Code(s): ZNY8403 - SNOMED Code(s): 664943847 Comment: heparin ppx Status and Disposition: medicine inpatient. Plan to d/c back to [facility] likely 02/23 vs 02/24 Attending: Ty Kate
[2017-02-21] MEDS: Potassium Chloride LIQUID* 20 MEQ PACKET PO SCH (14:24)
[2017-02-21] MEDS: Mirtazapine TAB* 15 MG PO SCH (20:59)
[2017-02-21] MEDS: Montelukast Sodium TAB* 10 MG PO SCH (21:00)
[2017-02-21] MEDS: Diazepam TAB(*) 2 MG PO PRN (21:00)
[2017-02-21] MEDS: Lidocaine Patch REMOVE* 1 NOTE MISC PATCH OFF SCH (21:12)
[2017-02-21] MEDS: LORazepam TAB(*) 1 MG PO PRN (23:45)
[2017-02-22] MEDS: Albuterol/Ipratropium NEB.SOL* Albuterol 2.5 MG/Ipratropium 0.5 MG 3 ML INH SCH ×4 (01:45→20:18)
[2017-02-22] MEDS: Acetaminophen TAB* 325 MG PO SCH ×3 (05:51→21:27)
[2017-02-22] MEDS: oxyCODONE TAB* 5 MG TAB PO PRN ×2 (05:52→14:14)
[2017-02-22] MEDS: Heparin VIAL(*) 5000 UNITS/ML VIAL (FIVE THOUSAND) SUBCUT SCH ×3 (05:54→21:47)
[2017-02-22 06:15] LABS: Hematocrit 32 % (35-47); Hemoglobin 10.2 g/dl (12.0-16.0); Mean Corpuscular HGB Conc 32 g/dl (31-36); Mean Corpuscular Hemoglobin 25 pg (27-31); Mean Corpuscular Volume 80 fL (80-97); Mean Platelet Volume 7 um3 (7.4-10.4); Red Blood Count 4.05 10^6/ul (4.0-5.4); Red Cell Distribution Width 19 % (10.5-15); White Blood Count 11.5 10^3/ul (3.5-10.8)
[2017-02-22 06:18] LABS: Add Diff/Slide Review? Slide Review Added; Comments Flag Yes
[2017-02-22] MEDS: fentaNYL Patch Check Q Shift 1 NOTE SCH ×2 (06:27→21:33)
[2017-02-22 06:28] LABS: BUN/Creatinine Ratio 20.9 (8-20); Calcium 9.6 mg/dL (8.6-10.3); EGFR African American 109.8 (>60); EGFR Non-African American 85.3 (>60); Potassium 4.9 mmol/L (3.5-5.0)
[2017-02-22] MEDS: Diazepam TAB(*) 2 MG PO PRN (06:31)
[2017-02-22] MEDS: Carbidopa/Levodop 25/100 MG TAB(*) PO SCH ×3 (06:31→21:46)
[2017-02-22] MEDS: cloNIDine TAB* 0.1 MG PO SCH ×2 (06:32→15:58)
[2017-02-22 08:24] LABS: Polychromasia 1+; Stomatocytes 1+
[2017-02-22 08:25] LABS: Basophilic Stippling 1+
[2017-02-22] MEDS: Mometasone/Formoter 200/5 MDI INH SCH ×2 (08:31→20:18)
[2017-02-22] MEDS: Folic Acid TAB* 1 MG PO SCH (09:15)
[2017-02-22] MEDS: Sertraline* 100 MG TAB PO SCH ×2 (09:15→21:27)
[2017-02-22] MEDS: Cyanocobalamin TAB* 500 MCG PO SCH (09:15)
[2017-02-22] MEDS: Losartan TAB* 25 MG PO SCH (09:15)
[2017-02-22] MEDS: Cholecalciferol TAB* 1000 UNITS PO SCH (09:15)
[2017-02-22] MEDS: predniSONE TAB* 20 MG PO SCH (09:15)
[2017-02-22] MEDS: Potassium Chloride LIQUID* 20 MEQ PACKET PO SCH (09:15)
[2017-02-22] MEDS: cefTRIAXone VIAL(*) 1,000 MG in D5W 50 ML BAG* 50 ML IVPB SCH (09:16)
[2017-02-22] MEDS: Lidocaine PATCH 5%* 1 PATCH TRANSDERM SCH (09:33)
--- NOTE | 2017-02-22 16:40 | CONS ---
CONSULTATION REPORT: DATE OF CONSULTATION: 02/22/17 REQUESTING PHYSICIAN: Dr. Kate. CONSULTING SERVICE: Infectious Disease. REASON FOR CONSULTATION: Pneumonia, recurrent. IMPRESSION: 1. Admitted with hip pain hypoxia, hypercarbic respiratory failure, left lower lobe and right middle lobe infiltrates on CT scan, which were also present on the CT on 01/31/17 at the time of pneumonia admission. I think the most likely scenario is she has a radiographically slow to resolve infiltrates as well as severe chronic obstructive pulmonary disease with another exacerbation as opposed to recurrence of pneumonia. 2. Chronic hypercarbic respiratory failure. 3. Severe chronic obstructive pulmonary disease. 4. Hip fracture. RECOMMENDATIONS: Plan on another 2 days of ceftriaxone to complete 7 days as well as the corticosteroid inhaler regimen as determined by the primary team and Dr. Escalera. She is to have a followup CT scan in another month. HISTORY OF PRESENT ILLNESS: This is a 76-year-old woman with severe COPD who lives at [facility], admitted for hip pain by her report. She cannot provide me the details of her history, which was obtained instead from discussion with Dr. Kate and review of the medical record. Over the fall, she was seen in [facility] for hip fracture. She had another fall, another fracture, which is managed nonoperatively. She was here in mid January with pneumonia, treated with antibiotics. Her sputum was unrevealing. At that time , her blood cultures were negative. She had multiple foci of infiltrate on CT scan as described above. On 02/04/17, she was transferred back to [facility] on [facility], which she was going to take through the and apparently did. She started to have some shortness of breath and another fall and was hypoxemic in the ambulance. On the way to the ER, she was afebrile, but tachypneic, normotensive, oxygen saturation in the mid 90s with 3 L of oxygen through the nasal cannula. She denies chest pain. Per the nurse, she has not had diarrhea, and her cough seems to be getting better. PAST MEDICAL HISTORY: 1. Severe COPD. 2. Chronic hypercarbic respiratory failure. 3. Parkinson disease. 4. Sacral fracture. 5. Hypertension. 6. Osteoarthritis. 7. Status post bilateral knee arthroplasty. 8. Status post right total hip arthroplasty. 9. Status post Shawanda's procedure. MEDICATIONS: 1. Tylenol. 2. Albuterol inhaler. 3. Sinemet. 4. Cholecalciferol. 5. Clonidine. 6. B12. 7. Fentanyl patch. 8. Folic acid. 9. Heparin subcutaneous injection. 10. Dilaudid p.r.n. 11. Ibuprofen. 12. Lidocaine patch. 13. Losartan. 14. Magnesium hydroxide. 15. Mirtazapine. 16. Singulair. 17. Ceftriaxone 1 g a day. 18. Senna. 19. Sertraline. ALLERGIES: ASPIRIN, MORPHINE, IODINE. FAMILY HISTORY: Mother with coronary artery disease and father of natural causes at age 93. SOCIAL HISTORY: She lives at [facility], past smoker. REVIEW OF SYSTEMS: A 14-point review of systems was negative except as noted above in the history of present illness. PHYSICAL EXAM: Vital Signs: Temperature is 37, heart rate 80, respiratory rate 18, blood pressure 134/65, oxygen saturation 95% on 3 L. General: She is awake, and not in distress. Neurologic: She is oriented, answers questions. Moves all her extremities. HEENT: There is no conjunctival hemorrhage. Oropharynx without lesions. Neck: Supple without nuchal rigidity. Lymph nodes : There is no inguinal, axillary, or epitrochlear lymphadenopathy. Heart: Regular and tachycardic without murmurs. Lungs: There are expiratory wheezes in all lung co[place] bilaterally without wheezes or rales or rhonchi. Abdomen: Soft, nontender, nondistended. There are bowel sounds present. Skin: There are no rashes or splinter hemorrhages. Musculoskeletal: There is no spine tenderness to palpation. LABORATORY DATA: White blood cell count 11, hemoglobin 10, platelets 222,000. Creatinine 0.6. Influenza PCR negative. Sputum culture grew Serratia marcescens. Please see impressions and recommendations outlined above. Thank you for asking me to see Ms. Blackman in consultation. [id number]/[facility] #: [id number] JEN
--- NOTE | 2017-02-22 18:00 | PN ---
Subjective Date of Service: 02/22/17 Interval History: Still feels "lousy". Shortness of breath about same. WBC slightly up to 11.5 from 10.1. Afebrile. Pain with attempted standing. Refused PT today. ID was consulted. Objective Active Medications: Acetaminophen (Tylenol Tab*) 975 mg PO Q8HR [facility] Last Admin: 02/22/17 14:12 Dose: 975 mg Albuterol/Ipratropium (Duoneb (Albuterol 2.5 Mg/Ipratropium 0.5 Mg)) 1 neb INH Q2H PRN PRN Reason: SOB/WHEEZING Albuterol/Ipratropium (Duoneb (Albuterol 2.5 Mg/Ipratropium 0.5 Mg)) 1 neb INH [id number] AWAKE [facility] Last Admin: 02/22/17 13:54 Dose: 1 neb Carbidopa/Levodopa (Sinemet 25/100 Tab(*)) 1 tab PO 0700,1300,2000 [facility] Last Admin: 02/22/17 14:14 Dose: 1 tab Cholecalciferol (Vitamin D Tab*) 1,000 units PO DAILY [facility] Last Admin: 02/22/17 09:15 Dose: 1,000 units Clonidine HCl (Catapres Tab*) 0.1 mg PO 0700,1600 [facility] Last Admin: 02/22/17 15:58 Dose: 0.1 mg Cyanocobalamin (Vitamin B12 Tab*) 1,000 mcg PO DAILY [facility] Last Admin: 02/22/17 09:15 Dose: 1,000 mcg Diazepam (Valium Tab(*)) 2 mg PO Q6HR PRN PRN Reason: ANXIETY Last Admin: 02/22/17 06:31 Dose: 2 mg Fentanyl (Duragesic Patch 12 Mcg/Hr *) 12 mcg TRANSDERM Q72H [facility] Last Admin: 02/19/17 22:04 Dose: 12 mcg Folic Acid (Folvite Tab*) 1 mg PO DAILY [facility] Last Admin: 02/22/17 09:15 Dose: 1 mg Heparin Sodium (Porcine) (Heparin Vial(*)) 5,000 units SUBCUT Q8HR [facility] Last Admin: 02/22/17 14:12 Dose: 5,000 units Hydromorphone HCl (Dilaudid Inj*) 2 mg IV SLOW PU Q4H PRN PRN Reason: PAIN Last Admin: 02/20/17 06:00 Dose: 2 mg Ceftriaxone Sodium 1,000 mg/ (Dextrose) 50 mls @ 200 mls/hr IVPB Q24H [facility] Last Admin: 02/22/17 09:16 Dose: 200 mls/hr Ibuprofen (Motrin Tab*) 600 mg PO Q6H PRN PRN Reason: PAIN Last Admin: 02/21/17 02:34 Dose: 600 mg Lidocaine (Lidoderm 5% Patch*) 1 patch TRANSDERM DAILY [facility] Last Admin: 02/22/17 09:33 Dose: 1 patch Lorazepam (Ativan Tab(*)) 1 mg PO BEDTIME PRN PRN Reason: ANXIETY Last Admin: 02/21/17 23:45 Dose: 1 mg Losartan Potassium (Cozaar Tab*) 25 mg PO DAILY [facility] Last Admin: 02/22/17 09:15 Dose: 25 mg Magnesium Hydroxide (Milk Of Magnesia Liq*) 30 ml PO BEDTIME PRN PRN Reason: CONSTIPATION Mirtazapine (Remeron Tab*) 7.5 mg PO BEDTIME [facility] Last Admin: 02/21/17 20:59 Dose: 7.5 mg Mometasone Furoate/Formoterol Fumar (Dulera 200/5 Mdi*) 2 puff INH BID [facility] Last Admin: 02/22/17 08:31 Dose: 2 puff Montelukast Sodium (Singulair Tab*) 10 mg PO BEDTIME [facility] Last Admin: 02/21/17 21:00 Dose: 10 mg Oxycodone HCl (Roxycodone Tab*) 10 mg PO Q4H PRN PRN Reason: PAIN - SEVERE Last Admin: 02/22/17 14:14 Dose: 10 mg Pharmacy Profile Note (Lidocaine Patch Remove*) 1 note PATCH OFF 2100 [facility] Last Admin: 02/21/17 21:12 Dose: 1 note Pharmacy Profile Note (Fentanyl Patch Check Q Shift) 0 note N/A 0700,1900 [facility] Last Admin: 02/22/17 06:27 Dose: 1 note Polyethylene Glycol/Electrolytes (Miralax*) 17 gm PO DAILY PRN PRN Reason: CONSTIPATION Potassium Chloride (Klor-Con Liquid*) 40 meq PO DAILY [facility] Last Admin: 02/22/17 09:15 Dose: 40 meq Prednisone (Deltasone Tab*) 40 mg PO DAILY [facility] Last Admin: 02/22/17 09:15 Dose: 40 mg Senna (Senokot Tab*) 2 tab PO DAILY PRN PRN Reason: CONSTIPATION Last Admin: 02/19/17 07:46 Dose: 2 tab Sertraline HCl (Zoloft*) 100 mg PO BID [facility] Last Admin: 02/22/17 09:15 Dose: 100 mg Vital Signs 02/21/17 02/21/17 02/21/17 19:55 20:00 20:25 Temperature 98.0 F Pulse Rate 110 122 Respiratory 20 24 Rate Blood Pressure 153/78 (mmHg) O2 Sat by Pulse 98 95 Oximetry 02/21/17 02/21/17 02/21/17 20:31 21:00 23:34 Temperature 97.9 F Pulse Rate 92 Respiratory 24 24 16 Rate Blood Pressure 116/58 (mmHg) O2 Sat by Pulse 96 Oximetry 02/21/17 02/21/17 02/22/17 23:45 23:47 00:33 Temperature Pulse Rate Respiratory 20 20 Rate Blood Pressure (mmHg) O2 Sat by Pulse 96 Oximetry 02/22/17 02/22/17 02/22/17 03:26 03:53 05:52 Temperature Pulse Rate 87 Respiratory 16 15 20 Rate Blood Pressure 152/94 (mmHg) O2 Sat by Pulse 100 Oximetry 02/22/17 02/22/17 02/22/17 06:31 07:14 08:34 Temperature 98.1 F Pulse Rate 88 82 Respiratory 20 20 18 Rate Blood Pressure 134/65 (mmHg) O2 Sat by Pulse 96 98 Oximetry 02/22/17 02/22/17 02/22/17 09:16 09:17 09:43 Temperature Pulse Rate Respiratory 20 20 18 Rate Blood Pressure (mmHg) O2 Sat by Pulse Oximetry 02/22/17 02/22/17 02/22/17 11:38 14:01 14:14 Temperature 97.9 F Pulse Rate 98 97 Respiratory 16 18 20 Rate Blood Pressure 135/69 (mmHg) O2 Sat by Pulse 97 99 Oximetry 02/22/17 02/22/17 02/22/17 14:30 15:23 15:31 Temperature 98.3 F Pulse Rate 99 72 Respiratory 22 Rate Blood Pressure 126/83 (mmHg) O2 Sat by Pulse 95 97 Oximetry 02/22/17 02/22/17 15:49 16:12 Temperature Pulse Rate Respiratory 20 20 Rate Blood Pressure (mmHg) O2 Sat by Pulse 96 Oximetry Oxygen Devices in Use Now: Nasal Cannula Appearance: NAD, moderately increased work of breathing. Ears/Nose/Mouth/Throat: NL Teeth, Lips, Gums Neck: NL Appearance and Movements; NL JVP Respiratory: - - expiratory wheezing and diffuse rhonshi. Cardiovascular: NL Sounds; No Murmurs; No JVD, RRR Abdominal: NL Sounds; No Tenderness; No Distention Extremities: No Edema Skin: No Rash or Ulcers, No Nodules or Sclerosis Neurological: Alert and Oriented x 3 Result Diagrams: 02/22/17 06:07 02/22/17 06:07 Additional Lab and Data: Laboratory Results - last 24 hr 02/22/17 02/22/17 06:07 06:07 WBC 11.5 H RBC 4.05 Hgb 10.2 L Hct 32 L MCV 80 MCH 25 L MCHC 32 RDW 19 H Plt Count 222 MPV 7 L Neut % (Auto) 78.7 Lymph % (Auto) 13.6 L [place] % (Auto) 6.0 Eos % (Auto) 1.1 Baso % (Auto) 0.6 Absolute Neuts (auto) 9.0 H Absolute Lymphs (auto) 1.6 Absolute Monos (auto) 0.7 Absolute Eos (auto) 0.1 Absolute Basos (auto) 0.1 Absolute Nucleated RBC 0.01 Nucleated RBC % 0.1 Normal RBC Morphology Not Reportable Polychromasia 1+ Basophilic Stippling 1+ Stomatocytes 1+ Sodium 141 Potassium 4.9 D Chloride 97 L Carbon Dioxide 42 H* Anion Gap 2 BUN 14 Creatinine 0.67 Est GFR ( Amer) 109.8 Est GFR (Non-Af Amer) 85.3 BUN/Creatinine Ratio 20.9 H Glucose 102 H Calcium 9.6 Microbiology and Other Data: Microbiology 02/16/17 16:52 Blood Venous Aerobic Blood Culture - Final No Growth Day 5 02/16/17 16:52 Blood Venous Anaerobic Blood Culture - Final No Growth Day 5 02/16/17 16:04 Blood Venous Aerobic Blood Culture - Final No Growth Day 5 02/16/17 16:04 Blood Venous Anaerobic Blood Culture - Final No Growth Day 5 Assess/Plan/Problems-Billing Assessment: 76 yo female PMH COPD, parkinson's dz, recent numerous falls with fractures and recent pneumonia p/w leukocytosis, tachycardia, lactic acidosis, continued pain from recent sacral fracture. Acute on Chronic respiratory failure. ECHO with diastolic dysfunction. Sepsis 2/2 Serratia Marcescens pna (her 4th pna admission this year including [facility]) Pulm and ID on board. Day 5/7 of ceftriaxone (sens). - Patient Problems (1) Acute on chronic respiratory failure with hypoxemia Current Visit: No Status: Acute Code(s): J96.21 - ACUTE AND CHRONIC RESPIRATORY FAILURE WITH HYPOXIA SNOMED Code(s): 85386144755932891 Comment: Serratia marcescens on sputum. CT chest 02/18 with continued air bronchograms and consolidative changes. Continue ceftriaxone (sens), day 5 of 7 (got 1 day azithro on admission). MRSA nares negative. 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 - Recent pna (required vapotherm in ICU), treated with zosyn x 3days then levaquin. In fact 2 more [place] admissions this year for pna. Consulted Dr. Escalera Puladrienne, appreciate recs - ECHO with diastolic dysfunction. - Hx COPD, chronic 3L. Prednisone 40mg daily tapering as able but still wheezing. nebulizers (q6; q2 prn) - chest physiotherapy still junky sounding and intermittently tachypneic (2) COPD (chronic obstructive pulmonary disease) Current Visit: No Status: Acute Code(s): J44.9 - CHRONIC OBSTRUCTIVE PULMONARY DISEASE, UNSPECIFIED SNOMED Code(s): 27505842 Comment: prednisone 40mg daily taper as able. wheezing. s/p solumedrol 125mg in ED. nelson roberts duonebs. (3) HTN (hypertension) Current Visit: No Status: Acute Code(s): I10 - ESSENTIAL (PRIMARY) HYPERTENSION SNOMED Code(s): 04115275 Comment: clonidine 0.1mg BID, losartan 25 (4) Anxiety Current Visit: No Status: Acute Code(s): F41.9 - ANXIETY DISORDER, UNSPECIFIED SNOMED Code(s): 28751504 Comment: zoloft 100mg bid (5) Parkinson disease Current Visit: No Status: Acute Code(s): G20 - PARKINSON'S DISEASE SNOMED Code(s): 58250005 Comment: sinemet (6) Sacral insufficiency fracture with routine healing Current Visit: No Status: Acute Code(s): M84.48XD - PATHOLOGICAL FRACTURE, OTH SITE, SUBS FOR FX W ROUTN HEAL SNOMED Code(s): 890590011 Comment: WBAT PT, not really tolerating lidocaine patch fentanyl patch 12mcg oxycodone 10mg q4h prn dilaudid IV 2 q4 prn but avoid benzo prns if given. not used yesterday (7) DVT prophylaxis Current Visit: No Status: Acute Code(s): XNH2178 - SNOMED Code(s): 575893692 Comment: heparin ppx Status and Disposition: medicine inpatient. Plan to d/c back to [facility] likely circa 02/24. Consider Palliative care consult if not progressing Attending: Ty Kate
--- NOTE | 2017-02-22 19:45 | PN ---
Progress Note - Progress Note Date of Service: 02/22/17 - Pulm f/u note Note: Pt seen and examined at bedside this am. Pt reports feeling lousy. Active Medications Generic Name Dose Route Start Last Admin Trade Name Freq PRN Reason Stop Dose Admin Acetaminophen 975 mg 02/16/17 22:00 02/22/17 14:12 Tylenol Tab* PO 975 mg Q8HR YANDEL Administration Albuterol/Ipratropium 1 neb 02/18/17 18:51 Duoneb (Albuterol 2.5 Mg/Ipratropium 0.5 Mg) INH Q2H PRN SOB/WHEEZING Albuterol/Ipratropium 1 neb 02/19/17 19:00 02/22/17 13:54 Duoneb (Albuterol 2.5 Mg/Ipratropium 0.5 Mg) INH 1 neb [id number] AWAKE YANDEL Administration Carbidopa/Levodopa 1 tab 02/16/17 20:00 02/22/17 14:14 Sinemet 25/100 Tab(*) PO 1 tab 0700,1300,2000 YANDEL Administration Cholecalciferol 1,000 units 02/17/17 09:00 02/22/17 09:15 Vitamin D Tab* PO 1,000 units DAILY YANDEL Administration Clonidine HCl 0.1 mg 02/17/17 07:00 02/22/17 15:58 Catapres Tab* PO 0.1 mg 0700,1600 YANDEL Administration Cyanocobalamin 1,000 mcg 02/17/17 09:00 02/22/17 09:15 Vitamin B12 Tab* PO 1,000 mcg DAILY YANDEL Administration Diazepam 2 mg 02/16/17 18:48 02/22/17 06:31 Valium Tab(*) PO 2 mg Q6HR PRN Administration ANXIETY Fentanyl 12 mcg 02/16/17 22:00 02/19/17 22:04 Duragesic Patch 12 Mcg/Hr * TRANSDERM 12 mcg Q72H YANDEL Administration Folic Acid 1 mg 02/17/17 09:00 02/22/17 09:15 Folvite Tab* PO 1 mg DAILY YANDEL Administration Heparin Sodium (Porcine) 5,000 units 02/16/17 22:00 02/22/17 14:12 Heparin Vial(*) SUBCUT 5,000 units Q8HR YANDEL Administration Hydromorphone HCl 2 mg 02/18/17 15:41 02/20/17 06:00 Dilaudid Inj* IV SLOW PU 2 mg Q4H PRN Administration PAIN Ceftriaxone Sodium 1,000 mg/ 50 mls @ 200 mls/hr 02/20/17 08:00 02/22/17 09: 16 Dextrose IVPB 200 mls/hr Q24H YANDEL Administration Ibuprofen 600 mg 02/16/17 18:48 02/21/17 02:34 Motrin Tab* PO 600 mg Q6H PRN Administration PAIN Lidocaine 1 patch 02/17/17 09:00 02/22/17 09:33 Lidoderm 5% Patch* TRANSDERM 1 patch DAILY YANDEL Administration Lorazepam 1 mg 02/16/17 23:39 02/21/17 23:45 Ativan Tab(*) PO 1 mg BEDTIME PRN Administration ANXIETY Losartan Potassium 25 mg 02/17/17 09:00 02/22/17 09:15 Cozaar Tab* PO 25 mg DAILY YANDEL Administration Magnesium Hydroxide 30 ml 02/16/17 18:48 Milk Of Magnesia Liq* PO BEDTIME PRN CONSTIPATION Mirtazapine 7.5 mg 02/16/17 21:00 02/21/17 20:59 Remeron Tab* PO 7.5 mg BEDTIME YANDEL Administration Mometasone Furoate/Formoterol Fumar 2 puff 02/18/17 21:00 02/22/17 08:31 Dulera 200/5 Mdi* INH 2 puff BID YANDEL Administration Montelukast Sodium 10 mg 02/16/17 21:00 02/21/17 21:00 Singulair Tab* PO 10 mg BEDTIME YNADEL Administration Oxycodone HCl 10 mg 02/16/17 18:48 02/22/17 14:14 Roxycodone Tab* PO 10 mg Q4H PRN Administration PAIN - SEVERE Pharmacy Profile Note 1 note 02/17/17 21:00 02/21/17 21:12 Lidocaine Patch Remove* PATCH OFF 1 note 2100 YANDEL Administration Pharmacy Profile Note 0 note 02/18/17 07:00 02/22/17 06:27 Fentanyl Patch Check Q Shift N/A 1 note 0700,1900 AYNDEL Administration Polyethylene Glycol/Electrolytes 17 gm 02/16/17 18:48 Miralax* PO DAILY PRN CONSTIPATION Potassium Chloride 40 meq 02/21/17 09:00 02/22/17 09:15 Klor-Con Liquid* PO 40 meq DAILY YANDEL Administration Prednisone 40 mg 02/17/17 09:00 02/22/17 09:15 Deltasone Tab* PO 40 mg DAILY YANDEL Administration Senna 2 tab 02/16/17 18:48 02/19/17 07:46 Senokot Tab* PO 2 tab DAILY PRN Administration CONSTIPATION Sertraline HCl 100 mg 02/16/17 21:00 02/22/17 09:15 Zoloft* PO 100 mg BID YANDEL Administration Vital Signs Temp Pulse Resp BP Pulse Ox 98.3 F 72 20 126/83 96 02/22/17 15:31 02/22/17 15:31 02/22/17 16:12 02/22/17 15:23 02/22/17 16:12 O/E: Pt in NAD HEENT: PERRLA, No JVD Lungs: Coarse breath sounds +, wheeze + CVS: S1, S2+ Abd: Soft, BS+ Ext: Moves all extremities Skin: No rash Laboratory Results - last 24 hr 02/22/17 02/22/17 06:07 06:07 WBC 11.5 H RBC 4.05 Hgb 10.2 L Hct 32 L MCV 80 MCH 25 L MCHC 32 RDW 19 H Plt Count 222 MPV 7 L Neut % (Auto) 78.7 Lymph % (Auto) 13.6 L Mora % (Auto) 6.0 Eos % (Auto) 1.1 Baso % (Auto) 0.6 Absolute Neuts (auto) 9.0 H Absolute Lymphs (auto) 1.6 Absolute Monos (auto) 0.7 Absolute Eos (auto) 0.1 Absolute Basos (auto) 0.1 Absolute Nucleated RBC 0.01 Nucleated RBC % 0.1 Normal RBC Morphology Not Reportable Polychromasia 1+ Basophilic Stippling 1+ Stomatocytes 1+ Sodium 141 Potassium 4.9 D Chloride 97 L Carbon Dioxide 42 H* Anion Gap 2 BUN 14 Creatinine 0.67 Est GFR ( Amer) 109.8 Est GFR (Non-Af Amer) 85.3 BUN/Creatinine Ratio 20.9 H Glucose 102 H Calcium 9.6 I/R: 76 yo female with O2 dependant COPD, parkinson's dz, recent numerous falls, recent pneumonia with acute on chronic respiratory failure, sepsis 2/2 Serratia Marcescens pna Pt with b/l PNA dx recently with acute COPD exacerbation Pt improving slowly c/w abx as per I.D No concern for endobronchial lesion, no bronchoscopy indicated at this time c/w steroids, will not taper yet as pt still wheezing c/w bronchodilators Aspiration precautions
[2017-02-22] MEDS: LORazepam TAB(*) 1 MG PO PRN (20:44)
[2017-02-22] MEDS: Montelukast Sodium TAB* 10 MG PO SCH (21:27)
[2017-02-22] MEDS: Mirtazapine TAB* 15 MG PO SCH (21:28)
[2017-02-22] MEDS: fentaNYL PATCH 12 MCG/HR TRANSDERM SCH (21:34)
[2017-02-22] MEDS: Lidocaine Patch REMOVE* 1 NOTE MISC PATCH OFF SCH (21:50)
[2017-02-23] MEDS: Albuterol/Ipratropium NEB.SOL* Albuterol 2.5 MG/Ipratropium 0.5 MG 3 ML INH SCH ×4 (01:12→21:27)
[2017-02-23] MEDS: oxyCODONE TAB* 5 MG TAB PO PRN ×4 (03:53→22:51)
[2017-02-23] MEDS: Albuterol/Ipratropium NEB.SOL* Albuterol 2.5 MG/Ipratropium 0.5 MG 3 ML INH PRN (04:17)
[2017-02-23] MEDS ORDERED: Furosemide IV* 10 MG/ML 10 ML VIAL (100 MG) IV ONE (04:42)
[2017-02-23] MEDS ORDERED: Furosemide IV* 10 MG/ML 2 ML VIAL (20 MG) IV ONE (04:42)
[2017-02-23] MEDS ORDERED: Furosemide IV* 10 MG/ML 2 ML VIAL (20 MG) ONE (05:26)
[2017-02-23] MEDS: Acetaminophen TAB* 325 MG PO SCH ×3 (05:32→20:28)
[2017-02-23] MEDS: Heparin VIAL(*) 5000 UNITS/ML VIAL (FIVE THOUSAND) SUBCUT SCH ×3 (05:33→20:30)
[2017-02-23] MEDS: Carbidopa/Levodop 25/100 MG TAB(*) PO SCH ×3 (06:44→21:39)
[2017-02-23] MEDS: cloNIDine TAB* 0.1 MG PO SCH ×2 (06:44→15:28)
[2017-02-23] MEDS: fentaNYL Patch Check Q Shift 1 NOTE SCH ×2 (06:45→19:18)
[2017-02-23] MEDS: Diazepam TAB(*) 2 MG PO PRN ×2 (06:53→22:51)
[2017-02-23] MEDS: Mometasone/Formoter 200/5 MDI INH SCH ×2 (08:18→21:25)
[2017-02-23] MEDS: cefTRIAXone VIAL(*) 1,000 MG in D5W 50 ML BAG* 50 ML IVPB SCH (08:22)
[2017-02-23] MEDS: Cyanocobalamin TAB* 500 MCG PO SCH (08:31)
[2017-02-23] MEDS: Losartan TAB* 25 MG PO SCH (08:31)
[2017-02-23] MEDS: Lidocaine PATCH 5%* 1 PATCH TRANSDERM SCH (08:31)
[2017-02-23] MEDS: Potassium Chloride LIQUID* 20 MEQ PACKET PO SCH (08:31)
[2017-02-23] MEDS: Cholecalciferol TAB* 1000 UNITS PO SCH (08:31)
[2017-02-23] MEDS: Sertraline* 100 MG TAB PO SCH ×2 (08:31→20:29)
[2017-02-23] MEDS: predniSONE TAB* 20 MG PO SCH (08:32)
[2017-02-23] MEDS: Folic Acid TAB* 1 MG PO SCH (08:32)
--- NOTE | 2017-02-23 13:12 | PN ---
Subjective Date of Service: 02/23/17 Interval History: HOSPITALIST PROGRESS NOTE Patient seen and examined at bedside. States her breathing is "still not good". Family History: Unchanged from Admission Social History: Unchanged from Admission Past Medical History: Unchanged from Admission Objective Active Medications: Acetaminophen (Tylenol Tab*) 975 mg PO Q8HR ON LICENSE OF [facility] Last Admin: 02/23/17 13:01 Dose: 975 mg Albuterol/Ipratropium (Duoneb (Albuterol 2.5 Mg/Ipratropium 0.5 Mg)) 1 neb INH Q2H PRN PRN Reason: SOB/WHEEZING Last Admin: 02/23/17 04:17 Dose: 1 neb Albuterol/Ipratropium (Duoneb (Albuterol 2.5 Mg/Ipratropium 0.5 Mg)) 1 neb INH [id number] ON LICENSE OF [facility] Last Admin: 02/23/17 12:18 Dose: 1 neb Carbidopa/Levodopa (Sinemet 25/100 Tab(*)) 1 tab PO 0700,1300,2000 ON LICENSE OF [facility] Last Admin: 02/23/17 13:00 Dose: 1 tab Cholecalciferol (Vitamin D Tab*) 1,000 units PO DAILY ON LICENSE OF [facility] Last Admin: 02/23/17 08:31 Dose: 1,000 units Clonidine HCl (Catapres Tab*) 0.1 mg PO 0700,1600 ON LICENSE OF [facility] Last Admin: 02/23/17 06:44 Dose: 0.1 mg Cyanocobalamin (Vitamin B12 Tab*) 1,000 mcg PO DAILY ON LICENSE OF [facility] Last Admin: 02/23/17 08:31 Dose: 1,000 mcg Diazepam (Valium Tab(*)) 2 mg PO Q6HR PRN PRN Reason: ANXIETY Last Admin: 02/23/17 06:53 Dose: 2 mg Fentanyl (Duragesic Patch 12 Mcg/Hr *) 12 mcg TRANSDERM Q72H YANDEL Last Admin: 02/22/17 21:34 Dose: 12 mcg Folic Acid (Folvite Tab*) 1 mg PO DAILY ON LICENSE OF [facility] Last Admin: 02/23/17 08:32 Dose: 1 mg Heparin Sodium (Porcine) (Heparin Vial(*)) 5,000 units SUBCUT Q8HR ON LICENSE OF [facility] Last Admin: 02/23/17 13:01 Dose: 5,000 units Hydromorphone HCl (Dilaudid Inj*) 2 mg IV SLOW PU Q4H PRN PRN Reason: PAIN Last Admin: 02/20/17 06:00 Dose: 2 mg Ceftriaxone Sodium 1,000 mg/ (Dextrose) 50 mls @ 200 mls/hr IVPB Q24H ON LICENSE OF [facility] Last Admin: 02/23/17 08:22 Dose: 200 mls/hr Ibuprofen (Motrin Tab*) 600 mg PO Q6H PRN PRN Reason: PAIN Last Admin: 02/21/17 02:34 Dose: 600 mg Lidocaine (Lidoderm 5% Patch*) 1 patch TRANSDERM DAILY ON LICENSE OF [facility] Last Admin: 02/23/17 08:31 Dose: 1 patch Lorazepam (Ativan Tab(*)) 1 mg PO BEDTIME PRN PRN Reason: ANXIETY Last Admin: 02/22/17 20:44 Dose: 1 mg Losartan Potassium (Cozaar Tab*) 25 mg PO DAILY ON LICENSE OF [facility] Last Admin: 02/23/17 08:31 Dose: 25 mg Magnesium Hydroxide (Milk Of Magnesia Liq*) 30 ml PO BEDTIME PRN PRN Reason: CONSTIPATION Mirtazapine (Remeron Tab*) 7.5 mg PO BEDTIME ON LICENSE OF [facility] Last Admin: 02/22/17 21:28 Dose: 7.5 mg Mometasone Furoate/Formoterol Fumar (Dulera 200/5 Mdi*) 2 puff INH BID ON LICENSE OF [facility] Last Admin: 02/23/17 08:18 Dose: 2 puff Montelukast Sodium (Singulair Tab*) 10 mg PO BEDTIME ON LICENSE OF [facility] Last Admin: 02/22/17 21:27 Dose: 10 mg Oxycodone HCl (Roxycodone Tab*) 10 mg PO Q4H PRN PRN Reason: PAIN - SEVERE Last Admin: 02/23/17 13:00 Dose: 10 mg Pharmacy Profile Note (Lidocaine Patch Remove*) 1 note PATCH OFF 2100 ON LICENSE OF [facility] Last Admin: 02/22/17 21:50 Dose: 1 note Pharmacy Profile Note (Fentanyl Patch Check Q Shift) 0 note N/A 0700,1900 ON LICENSE OF [facility] Last Admin: 02/23/17 06:45 Dose: 1 note Polyethylene Glycol/Electrolytes (Miralax*) 17 gm PO DAILY PRN PRN Reason: CONSTIPATION Potassium Chloride (Klor-Con Liquid*) 40 meq PO DAILY ON LICENSE OF [facility] Last Admin: 02/23/17 08:31 Dose: 40 meq Prednisone (Deltasone Tab*) 40 mg PO DAILY ON LICENSE OF [facility] Last Admin: 02/23/17 08:32 Dose: 40 mg Senna (Senokot Tab*) 2 tab PO DAILY PRN PRN Reason: CONSTIPATION Last Admin: 02/19/17 07:46 Dose: 2 tab Sertraline HCl (Zoloft*) 100 mg PO BID ON LICENSE OF [facility] Last Admin: 02/23/17 08:31 Dose: 100 mg Vital Signs - 8 hr 02/23/17 02/23/17 02/23/17 11:18 12:19 13:00 Temperature 98.6 F Pulse Rate 90 Respiratory 18 20 Rate Blood Pressure (mmHg) O2 Sat by Pulse 98 Oximetry Oxygen Devices in Use Now: Nasal Cannula - 3 liters Appearance: Elderly lady lying in bed in NAD. Eyes: No Scleral Icterus Ears/Nose/Mouth/Throat: Mucous Membranes Moist Neck: Trachea Midline Respiratory: Symmetrical Chest Expansion and Respiratory Effort, - - BS+ bilaterally coarse with scattered wheezes Cardiovascular: RRR - Normal S1 and S2 Abdominal: NL Sounds; No Tenderness; No Distention Neurological: Alert and Oriented x 3 Result Diagrams: 02/22/17 06:07 02/22/17 06:07 Assess/Plan/Problems-Billing Assessment: Mrs Blackman is a 76 yo F with PMH of COPD, Parkinson's, recent fall with fracture and recent pneumonia who presented to ED with leukocytosis, tachycardia , lactic acidosis, continued pain from recent sacral fracture, acute on chronic respiratory failure, found to have sepsis secondary to Serratia Marcescens PNA. - Patient Problems (1) Acute on chronic respiratory failure with hypoxemia Comment: - Secondary to Serratia pneumonia. (2) Pneumonia Comment: - Serratia marcescens pneumonia. - CT chest 02/18 with continued air bronchograms and consolidative changes. - Continue ceftriaxone #6/7. - ID and Pulm recommendations appreciated. - Speech pathology recommended nectar thick liquids, mechanically ground solids. - Continue steroids and bronchodilators. (3) HTN (hypertension) Comment: - Controlled. - Continue clonidine and losartan. (4) Parkinson disease Comment: - Continue Sinemet. (5) Sacral insufficiency fracture with routine healing Comment: - C/o pain, did not work with PT. - WBAT. - Continue pain management. (6) DVT prophylaxis Comment: - SQ heparin. (7) DNR (do not resuscitate) Status and Disposition: Inpatient.
[2017-02-23] MEDS: Mirtazapine TAB* 15 MG PO SCH (20:22)
[2017-02-23] MEDS: Montelukast Sodium TAB* 10 MG PO SCH (20:27)
[2017-02-23] MEDS: LORazepam TAB(*) 1 MG PO PRN (20:36)
[2017-02-23] MEDS: Clotrimazole TROCHE* 10 MG TROCHE PO SCH (20:37)
[2017-02-23] MEDS: Lidocaine Patch REMOVE* 1 NOTE MISC PATCH OFF SCH (22:20)
[2017-02-24] MEDS: Albuterol/Ipratropium NEB.SOL* Albuterol 2.5 MG/Ipratropium 0.5 MG 3 ML INH SCH ×4 (00:51→20:52)
[2017-02-24] MEDS: Acetaminophen TAB* 325 MG PO SCH ×3 (05:39→22:08)
[2017-02-24] MEDS: oxyCODONE TAB* 5 MG TAB PO PRN ×3 (05:40→16:46)
[2017-02-24] MEDS: LORazepam TAB(*) 1 MG PO PRN ×2 (05:41→22:20)
[2017-02-24] MEDS: Heparin VIAL(*) 5000 UNITS/ML VIAL (FIVE THOUSAND) SUBCUT SCH ×3 (05:44→22:09)
[2017-02-24] MEDS: cloNIDine TAB* 0.1 MG PO SCH ×2 (07:11→16:46)
[2017-02-24] MEDS: fentaNYL Patch Check Q Shift 1 NOTE SCH ×2 (07:11→18:47)
[2017-02-24] MEDS: Carbidopa/Levodop 25/100 MG TAB(*) PO SCH ×3 (07:11→22:06)
[2017-02-24] MEDS: Mometasone/Formoter 200/5 MDI INH SCH ×2 (07:16→20:53)
[2017-02-24] MEDS: cefTRIAXone VIAL(*) 1,000 MG in D5W 50 ML BAG* 50 ML IVPB SCH (08:17)
[2017-02-24] MEDS: Cyanocobalamin TAB* 500 MCG PO SCH (09:45)
[2017-02-24] MEDS: Lidocaine PATCH 5%* 1 PATCH TRANSDERM SCH (09:48)
[2017-02-24] MEDS: Potassium Chloride LIQUID* 20 MEQ PACKET PO SCH (09:48)
[2017-02-24] MEDS: Folic Acid TAB* 1 MG PO SCH (09:49)
[2017-02-24] MEDS: Clotrimazole TROCHE* 10 MG TROCHE PO SCH ×4 (09:49→22:10)
[2017-02-24] MEDS: Cholecalciferol TAB* 1000 UNITS PO SCH (09:49)
[2017-02-24] MEDS: Losartan TAB* 25 MG PO SCH (09:50)
[2017-02-24] MEDS: Sertraline* 100 MG TAB PO SCH ×2 (09:50→22:09)
[2017-02-24] MEDS: predniSONE TAB* 20 MG PO SCH (09:51)
[2017-02-24] MEDS: Diazepam TAB(*) 2 MG PO PRN (11:57)
[2017-02-24] MEDS: methylPREDNISolone SOD 40 MG* 1 ML VIAL IV SCH (13:43)
--- NOTE | 2017-02-24 14:18 | PN ---
Progress Note - Progress Note Date of Service: 02/24/17 - Pulm f/u note Note: Pt seen and examined at bedside. Pt reports having difficulty breathing, no change in sx. reports cough and phleghm are improved Active Medications Generic Name Dose Route Start Last Admin Trade Name Freq PRN Reason Stop Dose Admin Acetaminophen 975 mg 02/16/17 22:00 02/24/17 13:42 Tylenol Tab* PO 975 mg Q8HR YANDEL Administration Albuterol/Ipratropium 1 neb 02/18/17 18:51 02/23/17 04:17 Duoneb (Albuterol 2.5 Mg/Ipratropium 0.5 Mg) INH 1 neb Q2H PRN Administration SOB/WHEEZING Albuterol/Ipratropium 1 neb 02/19/17 19:00 02/24/17 12:04 Duoneb (Albuterol 2.5 Mg/Ipratropium 0.5 Mg) INH 1 neb [id number] AWAKE YANDEL Administration Carbidopa/Levodopa 1 tab 02/16/17 20:00 02/24/17 13:42 Sinemet 25/100 Tab(*) PO 1 tab 0700,1300,2000 YANDEL Administration Cholecalciferol 1,000 units 02/17/17 09:00 02/24/17 09:49 Vitamin D Tab* PO 1,000 units DAILY YANDEL Administration Clonidine HCl 0.1 mg 02/17/17 07:00 02/24/17 07:11 Catapres Tab* PO 0.1 mg 0700,1600 YANDEL Administration Clotrimazole 10 mg 02/23/17 21:00 02/24/17 13:42 Mycelex Kinsey* PO 10 mg QID YANDEL Administration Cyanocobalamin 1,000 mcg 02/17/17 09:00 02/24/17 09:45 Vitamin B12 Tab* PO 1,000 mcg DAILY YANDEL Administration Diazepam 2 mg 02/16/17 18:48 02/24/17 11:57 Valium Tab(*) PO 2 mg Q6HR PRN Administration ANXIETY Fentanyl 12 mcg 02/16/17 22:00 02/22/17 21:34 Duragesic Patch 12 Mcg/Hr * TRANSDERM 12 mcg Q72H YANDEL Administration Folic Acid 1 mg 02/17/17 09:00 02/24/17 09:49 Folvite Tab* PO 1 mg DAILY YANDEL Administration Heparin Sodium (Porcine) 5,000 units 02/16/17 22:00 02/24/17 13:42 Heparin Vial(*) SUBCUT 5,000 units Q8HR YANDEL Administration Hydromorphone HCl 2 mg 02/18/17 15:41 02/20/17 06:00 Dilaudid Inj* IV SLOW PU 2 mg Q4H PRN Administration PAIN Ceftriaxone Sodium 1,000 mg/ 50 mls @ 200 mls/hr 02/20/17 08:00 02/24/17 08: 17 Dextrose IVPB 200 mls/hr Q24H YANDEL Administration Ibuprofen 600 mg 02/16/17 18:48 02/21/17 02:34 Motrin Tab* PO 600 mg Q6H PRN Administration PAIN Lidocaine 1 patch 02/17/17 09:00 02/24/17 09:48 Lidoderm 5% Patch* TRANSDERM 1 patch DAILY YANDEL Administration Lorazepam 1 mg 02/16/17 23:39 02/24/17 05:41 Ativan Tab(*) PO 1 mg BEDTIME PRN Administration ANXIETY Losartan Potassium 25 mg 02/17/17 09:00 02/24/17 09:50 Cozaar Tab* PO 25 mg DAILY YANDEL Administration Magnesium Hydroxide 30 ml 02/16/17 18:48 Milk Of Magnesia Liq* PO BEDTIME PRN CONSTIPATION Methylprednisolone Sodium Succinate 40 mg 02/24/17 14:00 02/24/17 13:43 Solu-Medrol 40 Mg IV 40 mg Q12H YANDEL Administration Mirtazapine 7.5 mg 02/16/17 21:00 02/23/17 20:22 Remeron Tab* PO 7.5 mg BEDTIME YANDEL Administration Mometasone Furoate/Formoterol Fumar 2 puff 02/18/17 21:00 02/24/17 07:16 Dulera 200/5 Mdi* INH Not Given BID YANDEL Montelukast Sodium 10 mg 02/16/17 21:00 02/23/17 20:27 Singulair Tab* PO 10 mg BEDTIME YANDEL Administration Oxycodone HCl 10 mg 02/16/17 18:48 02/24/17 11:57 Roxycodone Tab* PO 10 mg Q4H PRN Administration PAIN - SEVERE Pharmacy Profile Note 1 note 02/17/17 21:00 02/23/17 22:20 Lidocaine Patch Remove* PATCH OFF 1 note 2100 YANDEL Administration Pharmacy Profile Note 0 note 02/18/17 07:00 02/24/17 07:11 Fentanyl Patch Check Q Shift N/A 1 note 0700,1900 YANDEL Administration Polyethylene Glycol/Electrolytes 17 gm 02/16/17 18:48 Miralax* PO DAILY PRN CONSTIPATION Potassium Chloride 40 meq 02/21/17 09:00 02/24/17 09:48 Klor-Con Liquid* PO 40 meq DAILY YANDEL Administration Senna 2 tab 02/16/17 18:48 02/19/17 07:46 Senokot Tab* PO 2 tab DAILY PRN Administration CONSTIPATION Sertraline HCl 100 mg 02/16/17 21:00 02/24/17 09:50 Zoloft* PO 100 mg BID YANDEL Administration Vital Signs Temp Pulse Resp BP Pulse Ox 98.0 F 93 24 115/69 95 02/24/17 12:19 02/24/17 12:19 02/24/17 12:19 02/24/17 12:19 02/24/17 12:19 O/E: Pt in NAD HEENT: PERRLA, No JVD Lungs: Coarse breath sounds +, wheeze + CVS: S1, S2+ Abd: Soft, BS+ Ext: Moves all extremities Skin: No rash 02/22/17 02/22/17 06:07 06:07 WBC 11.5 H RBC 4.05 Hgb 10.2 L Hct 32 L MCV 80 MCH 25 L MCHC 32 RDW 19 H Plt Count 222 MPV 7 L Neut % (Auto) 78.7 Lymph % (Auto) 13.6 L [place] % (Auto) 6.0 Eos % (Auto) 1.1 Baso % (Auto) 0.6 Absolute Neuts (auto) 9.0 H Absolute Lymphs (auto) 1.6 Absolute Monos (auto) 0.7 Absolute Eos (auto) 0.1 Absolute Basos (auto) 0.1 Absolute Nucleated RBC 0.01 Nucleated RBC % 0.1 Normal RBC Morphology Not Reportable Polychromasia 1+ Basophilic Stippling 1+ Stomatocytes 1+ Sodium 141 Potassium 4.9 D Chloride 97 L Carbon Dioxide 42 H* Anion Gap 2 BUN 14 Creatinine 0.67 Est GFR ( Amer) 109.8 Est GFR (Non-Af Amer) 85.3 BUN/Creatinine Ratio 20.9 H Glucose 102 H Calcium 9.6 I/R: 76 yo female with O2 dependant COPD, parkinson's dz, recent numerous falls, recent pneumonia with acute on chronic respiratory failure, sepsis 2/2 Serratia Marcescens pna Pt with b/l PNA dx recently and with acute COPD exacerbation Pt improving slowly Still continues to have signficant audible wheeze Is on steroids po will change to IV ? Bulbar dysfunction sec to Parkinsons causing wheeze/stridor Recommend ENT eval to r/o vocal cord lesions Pt is hypoxic and with current wheeze/stridor is high risk for bronchoscopy c/w abx as per I.D c/w bronchodilators Aspiration precautions D/w Dr Acuna
--- NOTE | 2017-02-24 14:30 | PN ---
Subjective Date of Service: 02/24/17 Interval History: HOSPITALIST PROGRESS NOTE Patient seen and examined at bedside. States her dyspnea and wheezing are unchanged. Family History: Unchanged from Admission Social History: Unchanged from Admission Past Medical History: Unchanged from Admission Objective Active Medications: Acetaminophen (Tylenol Tab*) 975 mg PO Q8HR [facility] Last Admin: 02/24/17 13:42 Dose: 975 mg Albuterol/Ipratropium (Duoneb (Albuterol 2.5 Mg/Ipratropium 0.5 Mg)) 1 neb INH Q2H PRN PRN Reason: SOB/WHEEZING Last Admin: 02/23/17 04:17 Dose: 1 neb Albuterol/Ipratropium (Duoneb (Albuterol 2.5 Mg/Ipratropium 0.5 Mg)) 1 neb INH [id number] AWAKE [facility] Last Admin: 02/24/17 12:04 Dose: 1 neb Carbidopa/Levodopa (Sinemet 25/100 Tab(*)) 1 tab PO 0700,1300,2000 [facility] Last Admin: 02/24/17 13:42 Dose: 1 tab Cholecalciferol (Vitamin D Tab*) 1,000 units PO DAILY [facility] Last Admin: 02/24/17 09:49 Dose: 1,000 units Clonidine HCl (Catapres Tab*) 0.1 mg PO 0700,1600 [facility] Last Admin: 02/24/17 07:11 Dose: 0.1 mg Clotrimazole (Mycelex Kinsey*) 10 mg PO QID [facility] Last Admin: 02/24/17 13:42 Dose: 10 mg Cyanocobalamin (Vitamin B12 Tab*) 1,000 mcg PO DAILY [facility] Last Admin: 02/24/17 09:45 Dose: 1,000 mcg Diazepam (Valium Tab(*)) 2 mg PO Q6HR PRN PRN Reason: ANXIETY Last Admin: 02/24/17 11:57 Dose: 2 mg Fentanyl (Duragesic Patch 12 Mcg/Hr *) 12 mcg TRANSDERM Q72H [facility] Last Admin: 02/22/17 21:34 Dose: 12 mcg Folic Acid (Folvite Tab*) 1 mg PO DAILY [facility] Last Admin: 02/24/17 09:49 Dose: 1 mg Heparin Sodium (Porcine) (Heparin Vial(*)) 5,000 units SUBCUT Q8HR [facility] Last Admin: 02/24/17 13:42 Dose: 5,000 units Hydromorphone HCl (Dilaudid Inj*) 2 mg IV SLOW PU Q4H PRN PRN Reason: PAIN Last Admin: 02/20/17 06:00 Dose: 2 mg Ceftriaxone Sodium 1,000 mg/ (Dextrose) 50 mls @ 200 mls/hr IVPB Q24H YANDEL Last Admin: 02/24/17 08:17 Dose: 200 mls/hr Ibuprofen (Motrin Tab*) 600 mg PO Q6H PRN PRN Reason: PAIN Last Admin: 02/21/17 02:34 Dose: 600 mg Lidocaine (Lidoderm 5% Patch*) 1 patch TRANSDERM DAILY [facility] Last Admin: 02/24/17 09:48 Dose: 1 patch Lorazepam (Ativan Tab(*)) 1 mg PO BEDTIME PRN PRN Reason: ANXIETY Last Admin: 02/24/17 05:41 Dose: 1 mg Losartan Potassium (Cozaar Tab*) 25 mg PO DAILY [facility] Last Admin: 02/24/17 09:50 Dose: 25 mg Magnesium Hydroxide (Milk Of Magnesia Liq*) 30 ml PO BEDTIME PRN PRN Reason: CONSTIPATION Methylprednisolone Sodium Succinate (Solu-Medrol 40 Mg) 40 mg IV Q12H [facility] Last Admin: 02/24/17 13:43 Dose: 40 mg Mirtazapine (Remeron Tab*) 7.5 mg PO BEDTIME [facility] Last Admin: 02/23/17 20:22 Dose: 7.5 mg Mometasone Furoate/Formoterol Fumar (Dulera 200/5 Mdi*) 2 puff INH BID [facility] Last Admin: 02/24/17 07:16 Dose: Not Given Montelukast Sodium (Singulair Tab*) 10 mg PO BEDTIME [facility] Last Admin: 02/23/17 20:27 Dose: 10 mg Oxycodone HCl (Roxycodone Tab*) 10 mg PO Q4H PRN PRN Reason: PAIN - SEVERE Last Admin: 02/24/17 11:57 Dose: 10 mg Pharmacy Profile Note (Lidocaine Patch Remove*) 1 note PATCH OFF 2100 [facility] Last Admin: 02/23/17 22:20 Dose: 1 note Pharmacy Profile Note (Fentanyl Patch Check Q Shift) 0 note N/A 0700,1900 [facility] Last Admin: 02/24/17 07:11 Dose: 1 note Polyethylene Glycol/Electrolytes (Miralax*) 17 gm PO DAILY PRN PRN Reason: CONSTIPATION Potassium Chloride (Klor-Con Liquid*) 40 meq PO DAILY [facility] Last Admin: 02/24/17 09:48 Dose: 40 meq Senna (Senokot Tab*) 2 tab PO DAILY PRN PRN Reason: CONSTIPATION Last Admin: 02/19/17 07:46 Dose: 2 tab Sertraline HCl (Zoloft*) 100 mg PO BID [facility] Last Admin: 02/24/17 09:50 Dose: 100 mg Vital Signs - 8 hr 02/24/17 12:19 Temperature 98.0 F Pulse Rate 93 Respiratory 24 Rate Blood Pressure 115/69 (mmHg) O2 Sat by Pulse 95 Oximetry Oxygen Devices in Use Now: Nasal Cannula Appearance: Elderly lady lying in bed in NAD. Eyes: No Scleral Icterus Ears/Nose/Mouth/Throat: Mucous Membranes Moist Neck: Trachea Midline Respiratory: Symmetrical Chest Expansion and Respiratory Effort, - - BS+ bilaterally with bilateral wheezing Cardiovascular: RRR - Normal S1 and S2 Neurological: Alert and Oriented x 3 Result Diagrams: 02/22/17 06:07 02/22/17 06:07 Assess/Plan/Problems-Billing Assessment: Mrs Blackman is a 76 yo F with PMH of COPD, Parkinson's, recent fall with fracture and recent pneumonia who presented to ED with leukocytosis, tachycardia , lactic acidosis, continued pain from recent sacral fracture, acute on chronic respiratory failure, found to have sepsis secondary to Serratia Marcescens PNA. - Patient Problems (1) Acute on chronic respiratory failure with hypoxemia Comment: - Secondary to Serratia pneumonia. (2) Pneumonia Comment: - Serratia marcescens pneumonia. - CT chest 02/18 with continued air bronchograms and consolidative changes. - Continue ceftriaxone #7/. - Speech pathology recommended nectar thick liquids, mechanically ground solids. - Pulm follow up appreciated. (3) HTN (hypertension) Comment: - Controlled. - Continue clonidine and losartan. (4) Parkinson disease Comment: - Continue Sinemet. (5) Sacral insufficiency fracture with routine healing Comment: - WBAT. - Continue pain management. - Continue PT as tolerated. (6) DVT prophylaxis Comment: - SQ heparin. (7) DNR (do not resuscitate) Status and Disposition: Inpatient.
[2017-02-24] MEDS: Mirtazapine TAB* 15 MG PO SCH (22:07)
[2017-02-24] MEDS: Montelukast Sodium TAB* 10 MG PO SCH (22:08)
[2017-02-24] MEDS: Lidocaine Patch REMOVE* 1 NOTE MISC PATCH OFF SCH (22:27)
[2017-02-25] MEDS: Albuterol/Ipratropium NEB.SOL* Albuterol 2.5 MG/Ipratropium 0.5 MG 3 ML INH SCH ×4 (01:34→19:52)
[2017-02-25] MEDS: methylPREDNISolone SOD 40 MG* 1 ML VIAL IV SCH ×2 (02:36→14:08)
[2017-02-25] MEDS: Acetaminophen TAB* 325 MG PO SCH ×3 (06:20→21:35)
[2017-02-25] MEDS: cloNIDine TAB* 0.1 MG PO SCH ×2 (06:21→16:03)
[2017-02-25] MEDS: Carbidopa/Levodop 25/100 MG TAB(*) PO SCH ×3 (06:21→19:47)
[2017-02-25] MEDS: Heparin VIAL(*) 5000 UNITS/ML VIAL (FIVE THOUSAND) SUBCUT SCH ×3 (06:22→21:42)
[2017-02-25] MEDS: fentaNYL Patch Check Q Shift 1 NOTE SCH ×2 (06:59→19:30)
[2017-02-25] MEDS: oxyCODONE TAB* 5 MG TAB PO PRN ×2 (07:31→14:08)
[2017-02-25] MEDS: Mometasone/Formoter 200/5 MDI INH SCH ×2 (08:32→19:51)
[2017-02-25] MEDS: Potassium Chloride LIQUID* 20 MEQ PACKET PO SCH (08:51)
[2017-02-25] MEDS: cefTRIAXone VIAL(*) 1,000 MG in D5W 50 ML BAG* 50 ML IVPB SCH (08:51)
[2017-02-25] MEDS: Folic Acid TAB* 1 MG PO SCH (08:52)
[2017-02-25] MEDS: Sertraline* 100 MG TAB PO SCH ×2 (08:52→20:48)
[2017-02-25] MEDS: Losartan TAB* 25 MG PO SCH (08:52)
[2017-02-25] MEDS: Lidocaine PATCH 5%* 1 PATCH TRANSDERM SCH (08:52)
[2017-02-25] MEDS: Cholecalciferol TAB* 1000 UNITS PO SCH (08:52)
[2017-02-25] MEDS: Cyanocobalamin TAB* 500 MCG PO SCH (08:52)
[2017-02-25 09:45] LABS: Hematocrit 34 % (35-47); Hemoglobin 10.8 g/dl (12.0-16.0); Mean Corpuscular HGB Conc 32 g/dl (31-36); Mean Corpuscular Hemoglobin 26 pg (27-31); Mean Corpuscular Volume 80 fL (80-97); Mean Platelet Volume 7 um3 (7.4-10.4); Red Blood Count 4.22 10^6/ul (4.0-5.4); Red Cell Distribution Width 20 % (10.5-15); White Blood Count 18.6 10^3/ul (3.5-10.8)
[2017-02-25 09:55] LABS: Add Diff/Slide Review? Slide Review Added; Comments Flag Yes
[2017-02-25 10:04] LABS: BUN/Creatinine Ratio 24.3 (8-20); Calcium 9.7 mg/dL (8.6-10.3); EGFR African American 104.4 (>60); EGFR Non-African American 81.1 (>60)
[2017-02-25 10:11] LABS: Potassium 5.2 mmol/L (3.5-5.0)
[2017-02-25] MEDS: Clotrimazole TROCHE* 10 MG TROCHE PO SCH ×4 (12:00→20:53)
--- NOTE | 2017-02-25 13:39 | PN ---
Subjective Date of Service: 02/25/17 Interval History: HOSPITALIST PROGRESS NOTE Patient seen and examined at bedside. She offers no new complaints today, shortness of breath is unchanged. Family History: Unchanged from Admission Social History: Unchanged from Admission Past Medical History: Unchanged from Admission Objective Active Medications: Acetaminophen (Tylenol Tab*) 975 mg PO Q8HR [facility] Last Admin: 02/25/17 06:20 Dose: 975 mg Albuterol/Ipratropium (Duoneb (Albuterol 2.5 Mg/Ipratropium 0.5 Mg)) 1 neb INH Q2H PRN PRN Reason: SOB/WHEEZING Last Admin: 02/23/17 04:17 Dose: 1 neb Albuterol/Ipratropium (Duoneb (Albuterol 2.5 Mg/Ipratropium 0.5 Mg)) 1 neb INH [id number] AWAKE [facility] Last Admin: 02/25/17 08:32 Dose: 1 neb Carbidopa/Levodopa (Sinemet 25/100 Tab(*)) 1 tab PO 0700,1300,2000 [facility] Last Admin: 02/25/17 06:21 Dose: 1 tab Cholecalciferol (Vitamin D Tab*) 1,000 units PO DAILY [facility] Last Admin: 02/25/17 08:52 Dose: 1,000 units Clonidine HCl (Catapres Tab*) 0.1 mg PO 0700,1600 [facility] Last Admin: 02/25/17 06:21 Dose: 0.1 mg Clotrimazole (Mycelex Kinsey*) 10 mg PO QID [facility] Last Admin: 02/25/17 12:00 Dose: 10 mg Cyanocobalamin (Vitamin B12 Tab*) 1,000 mcg PO DAILY [facility] Last Admin: 02/25/17 08:52 Dose: 1,000 mcg Diazepam (Valium Tab(*)) 2 mg PO Q6HR PRN PRN Reason: ANXIETY Last Admin: 02/24/17 11:57 Dose: 2 mg Fentanyl (Duragesic Patch 12 Mcg/Hr *) 12 mcg TRANSDERM Q72H [facility] Last Admin: 02/22/17 21:34 Dose: 12 mcg Folic Acid (Folvite Tab*) 1 mg PO DAILY [facility] Last Admin: 02/25/17 08:52 Dose: 1 mg Heparin Sodium (Porcine) (Heparin Vial(*)) 5,000 units SUBCUT Q8HR [facility] Last Admin: 02/25/17 06:22 Dose: 5,000 units Hydromorphone HCl (Dilaudid Inj*) 2 mg IV SLOW PU Q4H PRN PRN Reason: PAIN Last Admin: 02/20/17 06:00 Dose: 2 mg Ceftriaxone Sodium 1,000 mg/ (Dextrose) 50 mls @ 200 mls/hr IVPB Q24H [facility] Last Admin: 02/25/17 08:51 Dose: 200 mls/hr Ibuprofen (Motrin Tab*) 600 mg PO Q6H PRN PRN Reason: PAIN Last Admin: 02/21/17 02:34 Dose: 600 mg Lidocaine (Lidoderm 5% Patch*) 1 patch TRANSDERM DAILY [facility] Last Admin: 02/25/17 08:52 Dose: 1 patch Lorazepam (Ativan Tab(*)) 1 mg PO BEDTIME PRN PRN Reason: ANXIETY Last Admin: 02/24/17 22:20 Dose: 1 mg Losartan Potassium (Cozaar Tab*) 25 mg PO DAILY [facility] Last Admin: 02/25/17 08:52 Dose: 25 mg Magnesium Hydroxide (Milk Of Magnesia Liq*) 30 ml PO BEDTIME PRN PRN Reason: CONSTIPATION Methylprednisolone Sodium Succinate (Solu-Medrol 40 Mg) 40 mg IV Q12H [facility] Last Admin: 02/25/17 02:36 Dose: 40 mg Mirtazapine (Remeron Tab*) 7.5 mg PO BEDTIME [facility] Last Admin: 02/24/17 22:07 Dose: 7.5 mg Mometasone Furoate/Formoterol Fumar (Dulera 200/5 Mdi*) 2 puff INH BID [facility] Last Admin: 02/25/17 08:32 Dose: 2 puff Montelukast Sodium (Singulair Tab*) 10 mg PO BEDTIME [facility] Last Admin: 02/24/17 22:08 Dose: 10 mg Oxycodone HCl (Roxycodone Tab*) 10 mg PO Q4H PRN PRN Reason: PAIN - SEVERE Last Admin: 02/25/17 07:31 Dose: 10 mg Pharmacy Profile Note (Lidocaine Patch Remove*) 1 note PATCH OFF 2100 [facility] Last Admin: 02/24/17 22:27 Dose: 1 note Pharmacy Profile Note (Fentanyl Patch Check Q Shift) 0 note N/A 0700,1900 [facility] Last Admin: 02/25/17 06:59 Dose: 1 note Polyethylene Glycol/Electrolytes (Miralax*) 17 gm PO DAILY PRN PRN Reason: CONSTIPATION Senna (Senokot Tab*) 2 tab PO DAILY PRN PRN Reason: CONSTIPATION Last Admin: 02/19/17 07:46 Dose: 2 tab Sertraline HCl (Zoloft*) 100 mg PO BID [facility] Last Admin: 02/25/17 08:52 Dose: 100 mg Vital Signs - 8 hr 02/25/17 02/25/17 02/25/17 08:49 10:59 11:09 Temperature 98.3 F Pulse Rate 104 Respiratory 16 18 19 Rate Blood Pressure 130/67 (mmHg) O2 Sat by Pulse 96 Oximetry Oxygen Devices in Use Now: Nasal Cannula - 3 liters Appearance: Elderly lady lying in bed in NAD. Eyes: No Scleral Icterus Ears/Nose/Mouth/Throat: Mucous Membranes Moist Neck: Trachea Midline Respiratory: Symmetrical Chest Expansion and Respiratory Effort, - - BS+ bilaterally with scattered bilateral wheezes Cardiovascular: RRR - Normal S1 and S2 Neurological: Alert and Oriented x 3 Result Diagrams: 02/25/17 09:36 02/25/17 09:36 Assess/Plan/Problems-Billing Assessment: Mrs Blackman is a 76 yo F with PMH of COPD, Parkinson's, recent fall with fracture and recent pneumonia who presented to ED with leukocytosis, tachycardia , lactic acidosis, continued pain from recent sacral fracture, acute on chronic respiratory failure, found to have sepsis secondary to Serratia Marcescens PNA. - Patient Problems (1) Acute on chronic respiratory failure with hypoxemia Comment: - Secondary to Serratia pneumonia. (2) Pneumonia Comment: - Serratia marcescens pneumonia. - CT chest 02/18 with continued air bronchograms and consolidative changes. - D/c ceftriaxone after last dose today. - Speech pathology recommended nectar thick liquids, mechanically ground solids. - Pulm follow up appreciated. - ENT consult requested. (3) HTN (hypertension) Comment: - Controlled. - Continue clonidine and losartan. (4) Parkinson disease Comment: - Continue Sinemet. (5) Sacral insufficiency fracture with routine healing Comment: - WBAT. - Continue pain management. - Continue PT as tolerated. (6) DVT prophylaxis Comment: - SQ heparin. (7) DNR (do not resuscitate) Status and Disposition: Inpatient.
[2017-02-25] MEDS ORDERED: Oxymetazoline 0.05% NASAL SPR* 15 ML BTL BOTH NARES ONE (18:49)
[2017-02-25] MEDS ORDERED: Lidocaine 4% TOPICAL* 50 ML TOP.SOLN TOPICAL SCH (19:30)
[2017-02-25] MEDS: Montelukast Sodium TAB* 10 MG PO SCH (20:48)
[2017-02-25] MEDS: Mirtazapine TAB* 15 MG PO SCH (20:49)
[2017-02-25] MEDS: Lidocaine Patch REMOVE* 1 NOTE MISC PATCH OFF SCH (20:53)
[2017-02-25] MEDS: fentaNYL PATCH 12 MCG/HR TRANSDERM SCH (21:36)
--- NOTE | 2017-02-25 22:40 | CONS ---
CONSULTATION REPORT: DATE OF CONSULT: 02/25/17 REASON FOR CONSULT: Difficulty swallowing with recurrent aspiration pneumonia. REQUESTING PHYSICIAN: Keyonna Acuna MD HISTORY OF PRESENT ILLNESS: The patient is a 76-year-old with Parkinson's disease who is having progressive difficulty swallowing and a weakened voice. She has been having some aspiration pneumonia and I was asked to consult to do a laryngeal examination. Her Parkinson's disease is relatively advanced at this point. She has already seen Speech Therapy, who has put her on a honey thickened diet. PHYSICAL EXAMINATION: On physical examination, she looks weak, difficult moving around in bed. She has a very weak and breathy voice, but with effort, can project a little bit better. Nasolaryngoscopy was performed after spraying the nose and 4% lidocaine. She does not have any pathology. She has full abduction, adduction of her vocal cords, but she does have an epiglottis that curves over the base of her tongue. ASSESSMENT: The patient has progressive dysphagia and a weakened voice secondary to her Parkinson's disease. It is very common for Parkinson's disease to cause dysphagia and often times aspiration pneumonia is the end event in this disease process. She is already on a thickened honey diet. She should continue this. RECOMMENDATION: My recommendation is that Speech Pathology do shaker exercises with her, these are swallowing strengthening exercises that can be used in Parkinson's disease to help with the swallowing. After every swallow, she should cough and swallow again. It should be a purposeful cough, which can help prevent the aspiration. I do not think we are going to do anything about the laryngeal penetration, but if we can prevent the bolus from going into the lungs, it might prevent some aspiration, this is why you did a purposeful cough. I do not have any further surgical or medical recommendations for her at this time. [id number]/[facility] #: [id number] JEN
[2017-02-26] MEDS: Albuterol/Ipratropium NEB.SOL* Albuterol 2.5 MG/Ipratropium 0.5 MG 3 ML INH SCH ×4 (01:34→20:24)
[2017-02-26] MEDS: methylPREDNISolone SOD 40 MG* 1 ML VIAL IV SCH ×2 (02:00→14:12)
[2017-02-26] MEDS: oxyCODONE TAB* 5 MG TAB PO PRN ×5 (02:09→20:59)
[2017-02-26] MEDS: Acetaminophen TAB* 325 MG PO SCH ×3 (06:20→20:58)
[2017-02-26] MEDS: Carbidopa/Levodop 25/100 MG TAB(*) PO SCH ×3 (06:21→20:57)
[2017-02-26] MEDS: Heparin VIAL(*) 5000 UNITS/ML VIAL (FIVE THOUSAND) SUBCUT SCH ×3 (06:22→21:04)
[2017-02-26] MEDS: cloNIDine TAB* 0.1 MG PO SCH ×2 (06:22→16:59)
[2017-02-26] MEDS: fentaNYL Patch Check Q Shift 1 NOTE SCH ×2 (06:38→18:56)
[2017-02-26] MEDS: Mometasone/Formoter 200/5 MDI INH SCH ×2 (07:19→20:22)
[2017-02-26] MEDS: cefTRIAXone VIAL(*) 1,000 MG in D5W 50 ML BAG* 50 ML IVPB SCH (07:33)
[2017-02-26] MEDS: Sertraline* 100 MG TAB PO SCH ×2 (07:38→20:57)
[2017-02-26] MEDS: Cyanocobalamin TAB* 500 MCG PO SCH (07:38)
[2017-02-26] MEDS: Losartan TAB* 25 MG PO SCH (07:38)
[2017-02-26] MEDS: Clotrimazole TROCHE* 10 MG TROCHE PO SCH ×4 (07:38→20:58)
[2017-02-26] MEDS: Lidocaine PATCH 5%* 1 PATCH TRANSDERM SCH (07:39)
[2017-02-26] MEDS: Cholecalciferol TAB* 1000 UNITS PO SCH (07:39)
[2017-02-26] MEDS: Folic Acid TAB* 1 MG PO SCH (07:39)
--- NOTE | 2017-02-26 08:53 | PN ---
Subjective Date of Service: 02/26/17 Interval History: HOSPITALIST PROGRESS NOTE Patient seen and examined at bedside. She offers no new complaints today. Breathing is unchanged. Family History: Unchanged from Admission Social History: Unchanged from Admission Past Medical History: Unchanged from Admission Objective Active Medications: Acetaminophen (Tylenol Tab*) 975 mg PO Q8HR [facility] Last Admin: 02/26/17 06:20 Dose: 975 mg Albuterol/Ipratropium (Duoneb (Albuterol 2.5 Mg/Ipratropium 0.5 Mg)) 1 neb INH Q2H PRN PRN Reason: SOB/WHEEZING Last Admin: 02/23/17 04:17 Dose: 1 neb Albuterol/Ipratropium (Duoneb (Albuterol 2.5 Mg/Ipratropium 0.5 Mg)) 1 neb INH [id number] AWAKE [facility] Last Admin: 02/26/17 07:19 Dose: 1 neb Carbidopa/Levodopa (Sinemet 25/100 Tab(*)) 1 tab PO 0700,1300,2000 [facility] Last Admin: 02/26/17 06:21 Dose: 1 tab Cholecalciferol (Vitamin D Tab*) 1,000 units PO DAILY [facility] Last Admin: 02/26/17 07:39 Dose: 1,000 units Clonidine HCl (Catapres Tab*) 0.1 mg PO 0700,1600 [facility] Last Admin: 02/26/17 06:22 Dose: 0.1 mg Clotrimazole (Mycelex Kinsey*) 10 mg PO QID [facility] Last Admin: 02/26/17 07:38 Dose: 10 mg Cyanocobalamin (Vitamin B12 Tab*) 1,000 mcg PO DAILY [facility] Last Admin: 02/26/17 07:38 Dose: 1,000 mcg Diazepam (Valium Tab(*)) 2 mg PO Q6HR PRN PRN Reason: ANXIETY Last Admin: 02/24/17 11:57 Dose: 2 mg Fentanyl (Duragesic Patch 12 Mcg/Hr *) 12 mcg TRANSDERM Q72H [facility] Last Admin: 02/25/17 21:36 Dose: 12 mcg Folic Acid (Folvite Tab*) 1 mg PO DAILY [facility] Last Admin: 02/26/17 07:39 Dose: 1 mg Heparin Sodium (Porcine) (Heparin Vial(*)) 5,000 units SUBCUT Q8HR [facility] Last Admin: 02/26/17 06:22 Dose: 5,000 units Hydromorphone HCl (Dilaudid Inj*) 2 mg IV SLOW PU Q4H PRN PRN Reason: PAIN Last Admin: 02/20/17 06:00 Dose: 2 mg Ibuprofen (Motrin Tab*) 600 mg PO Q6H PRN PRN Reason: PAIN Last Admin: 02/21/17 02:34 Dose: 600 mg Lidocaine (Lidoderm 5% Patch*) 1 patch TRANSDERM DAILY [facility] Last Admin: 02/26/17 07:39 Dose: 1 patch Lidocaine HCl (Lidocaine 4% Topical*) 1 applic TOPICAL . DIRECTED [facility] Stop: 02/26/17 23:59 Last Admin: 02/25/17 20:35 Dose: 1 applic Lorazepam (Ativan Tab(*)) 1 mg PO BEDTIME PRN PRN Reason: ANXIETY Last Admin: 02/24/17 22:20 Dose: 1 mg Losartan Potassium (Cozaar Tab*) 25 mg PO DAILY [facility] Last Admin: 02/26/17 07:38 Dose: 25 mg Magnesium Hydroxide (Milk Of Magnesia Liq*) 30 ml PO BEDTIME PRN PRN Reason: CONSTIPATION Methylprednisolone Sodium Succinate (Solu-Medrol 40 Mg) 40 mg IV Q12H [facility] Last Admin: 02/26/17 02:00 Dose: 40 mg Mirtazapine (Remeron Tab*) 7.5 mg PO BEDTIME [facility] Last Admin: 02/25/17 20:49 Dose: 7.5 mg Mometasone Furoate/Formoterol Fumar (Dulera 200/5 Mdi*) 2 puff INH BID [facility] Last Admin: 02/26/17 07:19 Dose: 2 puff Montelukast Sodium (Singulair Tab*) 10 mg PO BEDTIME [facility] Last Admin: 02/25/17 20:48 Dose: 10 mg Oxycodone HCl (Roxycodone Tab*) 10 mg PO Q4H PRN PRN Reason: PAIN - SEVERE Last Admin: 02/26/17 07:38 Dose: 10 mg Pharmacy Profile Note (Lidocaine Patch Remove*) 1 note PATCH OFF 2100 [facility] Last Admin: 02/25/17 20:53 Dose: 1 note Pharmacy Profile Note (Fentanyl Patch Check Q Shift) 0 note N/A 0700,1900 [facility] Last Admin: 02/26/17 06:38 Dose: 1 note Polyethylene Glycol/Electrolytes (Miralax*) 17 gm PO DAILY PRN PRN Reason: CONSTIPATION Senna (Senokot Tab*) 2 tab PO DAILY PRN PRN Reason: CONSTIPATION Last Admin: 02/19/17 07:46 Dose: 2 tab Sertraline HCl (Zoloft*) 100 mg PO BID [facility] Last Admin: 02/26/17 07:38 Dose: 100 mg Vital signs 02/26/17 02/26/17 07:27 07:38 Temperature 97.4 F Pulse Rate 80 Respiratory 18 20 Rate Blood Pressure 113/60 (mmHg) O2 Sat by Pulse 100 Oximetry Oxygen Devices in Use Now: Nasal Cannula - 3 liters Appearance: Elderly lady sitting up in bed in NAD. Eyes: No Scleral Icterus Ears/Nose/Mouth/Throat: Mucous Membranes Moist Neck: Trachea Midline Respiratory: Symmetrical Chest Expansion and Respiratory Effort, - - BS+ bilaterally coarse with no added sounds Cardiovascular: RRR - Normal S1 and S2 Neurological: Alert and Oriented x 3 Result Diagrams: 02/25/17 09:36 02/25/17 09:36 Assess/Plan/Problems-Billing Assessment: Mrs Blackman is a 76 yo F with PMH of COPD, Parkinson's, recent fall with fracture and recent pneumonia who presented to ED with leukocytosis, tachycardia , lactic acidosis, continued pain from recent sacral fracture, acute on chronic respiratory failure, found to have sepsis secondary to Serratia Marcescens PNA. - Patient Problems (1) Leukocytosis Comment: - Suspect associated with IV steroids. - Remains afebrile with stable VS. - Continue to monitor off Ceftriaxone. (2) Acute on chronic respiratory failure with hypoxemia Comment: - Secondary to Serratia pneumonia. (3) Pneumonia Comment: - Serratia marcescens pneumonia. - CT chest 02/18 with continued air bronchograms and consolidative changes. - Completed 7 days of ceftriaxone treatment. - Speech pathology recommended nectar thick liquids, mechanically ground solids. - Pulm follow up appreciated. - ENT consult appreciated - SEED SERVICE ADVISOR reconsulted for shaker exercises. (4) HTN (hypertension) Comment: - Controlled. - Continue clonidine and losartan. (5) Parkinson disease Comment: - Continue Sinemet. (6) Sacral insufficiency fracture with routine healing Comment: - WBAT. - Continue pain management. - Continue PT as tolerated. (7) DVT prophylaxis Comment: - SQ heparin. (8) DNR (do not resuscitate) Status and Disposition: Inpatient.
[2017-02-26] MEDS: LORazepam TAB(*) 1 MG PO PRN (16:55)
[2017-02-26] MEDS: Montelukast Sodium TAB* 10 MG PO SCH (20:58)
[2017-02-26] MEDS: Mirtazapine TAB* 15 MG PO SCH (20:58)
[2017-02-26] MEDS: Lidocaine Patch REMOVE* 1 NOTE MISC PATCH OFF SCH (21:05)
[2017-02-26] MEDS: Albuterol/Ipratropium NEB.SOL* Albuterol 2.5 MG/Ipratropium 0.5 MG 3 ML INH PRN (22:28)
[2017-02-27] MEDS: methylPREDNISolone SOD 40 MG* 1 ML VIAL IV SCH ×2 (02:28→12:59)
[2017-02-27] MEDS: Albuterol/Ipratropium NEB.SOL* Albuterol 2.5 MG/Ipratropium 0.5 MG 3 ML INH SCH ×4 (02:31→19:37)
[2017-02-27] MEDS: Acetaminophen TAB* 325 MG PO SCH ×3 (05:34→20:22)
[2017-02-27] MEDS: cloNIDine TAB* 0.1 MG PO SCH ×2 (05:36→16:10)
[2017-02-27] MEDS: Heparin VIAL(*) 5000 UNITS/ML VIAL (FIVE THOUSAND) SUBCUT SCH ×3 (05:36→22:25)
[2017-02-27] MEDS: Carbidopa/Levodop 25/100 MG TAB(*) PO SCH ×3 (05:36→20:24)
[2017-02-27] MEDS: Mometasone/Formoter 200/5 MDI INH SCH ×2 (07:31→19:35)
[2017-02-27 08:43] LABS: Comments Flag Yes; Hematocrit 34 % (35-47); Hemoglobin 10.5 g/dl (12.0-16.0); Mean Corpuscular HGB Conc 31 g/dl (31-36); Mean Corpuscular Hemoglobin 25 pg (27-31); Mean Corpuscular Volume 81 fL (80-97); Red Blood Count 4.16 10^6/ul (4.0-5.4); Red Cell Distribution Width 20 % (10.5-15); White Blood Count 19.2 10^3/ul (3.5-10.8)
[2017-02-27 08:44] LABS: Add Diff/Slide Review? Slide Review Added
[2017-02-27 08:45] LABS: BUN/Creatinine Ratio 28.2 (8-20); Calcium 9.2 mg/dL (8.6-10.3); EGFR African American 102.7 (>60); EGFR Non-African American 79.8 (>60)
[2017-02-27] MEDS: fentaNYL Patch Check Q Shift 1 NOTE SCH ×2 (09:27→18:58)
[2017-02-27] MEDS: Folic Acid TAB* 1 MG PO SCH (09:28)
[2017-02-27] MEDS: Cyanocobalamin TAB* 500 MCG PO SCH (09:28)
[2017-02-27] MEDS: Sertraline* 100 MG TAB PO SCH ×2 (09:28→20:22)
[2017-02-27] MEDS: Cholecalciferol TAB* 1000 UNITS PO SCH (09:28)
[2017-02-27] MEDS: Clotrimazole TROCHE* 10 MG TROCHE PO SCH ×4 (09:29→20:23)
[2017-02-27] MEDS: oxyCODONE TAB* 5 MG TAB PO PRN (09:29)
[2017-02-27] MEDS: Losartan TAB* 25 MG PO SCH (09:29)
[2017-02-27] MEDS: Lidocaine PATCH 5%* 1 PATCH TRANSDERM SCH (09:32)
[2017-02-27 09:36] LABS: Hypochromasia 1+; Immature Granulocytes 1 % (0-9); Myelocytes % 1 % (0-1); Neutrophil % 89 % (38-83)
--- NOTE | 2017-02-27 15:44 | PN ---
Subjective Date of Service: 02/27/17 Interval History: Patient complains of RT hip pain. She has recent repair RT hip fracture and more recent sacral fracture. She also reports SOB, wheezing. Reports she was out of bed to chair today, and can help w/ stand/pivot with LT leg. She seems unaware that she came from assisted facility, states she lives in an apartment in [place]. Family History: Unchanged from Admission Social History: Unchanged from Admission Past Medical History: Unchanged from Admission Objective Active Medications: Acetaminophen (Tylenol Tab*) 975 mg PO Q8HR [facility] Last Admin: 02/27/17 13:02 Dose: 975 mg Albuterol/Ipratropium (Duoneb (Albuterol 2.5 Mg/Ipratropium 0.5 Mg)) 1 neb INH Q2H PRN PRN Reason: SOB/WHEEZING Last Admin: 02/26/17 22:28 Dose: 1 neb Albuterol/Ipratropium (Duoneb (Albuterol 2.5 Mg/Ipratropium 0.5 Mg)) 1 neb INH [id number] AWAKE [facility] Last Admin: 02/27/17 13:32 Dose: 1 neb Carbidopa/Levodopa (Sinemet 25/100 Tab(*)) 1 tab PO 0700,1300,2000 [facility] Last Admin: 02/27/17 13:04 Dose: 1 tab Cholecalciferol (Vitamin D Tab*) 1,000 units PO DAILY [facility] Last Admin: 02/27/17 09:28 Dose: 1,000 units Clonidine HCl (Catapres Tab*) 0.1 mg PO 0700,1600 [facility] Last Admin: 02/27/17 05:36 Dose: 0.1 mg Clotrimazole (Mycelex Kinsey*) 10 mg PO QID [facility] Last Admin: 02/27/17 14:35 Dose: Not Given Cyanocobalamin (Vitamin B12 Tab*) 1,000 mcg PO DAILY [facility] Last Admin: 02/27/17 09:28 Dose: 1,000 mcg Diazepam (Valium Tab(*)) 2 mg PO Q6HR PRN PRN Reason: ANXIETY Last Admin: 02/24/17 11:57 Dose: 2 mg Fentanyl (Duragesic Patch 12 Mcg/Hr *) 12 mcg TRANSDERM Q72H [facility] Last Admin: 02/25/17 21:36 Dose: 12 mcg Folic Acid (Folvite Tab*) 1 mg PO DAILY [facility] Last Admin: 02/27/17 09:28 Dose: 1 mg Heparin Sodium (Porcine) (Heparin Vial(*)) 5,000 units SUBCUT Q8HR [facility] Last Admin: 02/27/17 13:00 Dose: 5,000 units Hydromorphone HCl (Dilaudid Inj*) 2 mg IV SLOW PU Q4H PRN PRN Reason: PAIN Last Admin: 02/20/17 06:00 Dose: 2 mg Ibuprofen (Motrin Tab*) 600 mg PO Q6H PRN PRN Reason: PAIN Last Admin: 02/21/17 02:34 Dose: 600 mg Lidocaine (Lidoderm 5% Patch*) 1 patch TRANSDERM DAILY [facility] Last Admin: 02/27/17 09:32 Dose: 1 patch Lorazepam (Ativan Tab(*)) 1 mg PO BEDTIME PRN PRN Reason: ANXIETY Last Admin: 02/26/17 16:55 Dose: 1 mg Losartan Potassium (Cozaar Tab*) 25 mg PO DAILY [facility] Last Admin: 02/27/17 09:29 Dose: 25 mg Magnesium Hydroxide (Milk Of Magnesia Liq*) 30 ml PO BEDTIME PRN PRN Reason: CONSTIPATION Methylprednisolone Sodium Succinate (Solu-Medrol 40 Mg) 40 mg IV Q12H [facility] Last Admin: 02/27/17 12:59 Dose: 40 mg Mirtazapine (Remeron Tab*) 7.5 mg PO BEDTIME [facility] Last Admin: 02/26/17 20:58 Dose: 7.5 mg Mometasone Furoate/Formoterol Fumar (Dulera 200/5 Mdi*) 2 puff INH BID [facility] Last Admin: 02/27/17 07:31 Dose: 2 puff Montelukast Sodium (Singulair Tab*) 10 mg PO BEDTIME [facility] Last Admin: 02/26/17 20:58 Dose: 10 mg Oxycodone HCl (Roxycodone Tab*) 10 mg PO Q4H PRN PRN Reason: PAIN - SEVERE Last Admin: 02/27/17 09:29 Dose: 10 mg Pharmacy Profile Note (Lidocaine Patch Remove*) 1 note PATCH OFF 2100 [facility] Last Admin: 02/26/17 21:05 Dose: 1 note Pharmacy Profile Note (Fentanyl Patch Check Q Shift) 0 note N/A 0700,1900 [facility] Last Admin: 02/27/17 09:27 Dose: 1 note Polyethylene Glycol/Electrolytes (Miralax*) 17 gm PO DAILY PRN PRN Reason: CONSTIPATION Senna (Senokot Tab*) 2 tab PO DAILY PRN PRN Reason: CONSTIPATION Last Admin: 02/19/17 07:46 Dose: 2 tab Sertraline HCl (Zoloft*) 100 mg PO BID [facility] Last Admin: 02/27/17 09:28 Dose: 100 mg Vital Signs - 8 hr 02/27/17 02/27/17 02/27/17 07:39 08:00 08:08 Temperature 36.6 C Pulse Rate 88 97 Respiratory 18 18 Rate Blood Pressure 127/63 (mmHg) O2 Sat by Pulse 96 96 Oximetry 02/27/17 02/27/17 02/27/17 09:29 12:11 13:07 Temperature 36.9 C Pulse Rate 98 Respiratory 20 14 18 Rate Blood Pressure 114/57 (mmHg) O2 Sat by Pulse 97 Oximetry Oxygen Devices in Use Now: Nasal Cannula Appearance: alert, coughing Eyes: No Scleral Icterus Ears/Nose/Mouth/Throat: Clear Oropharnyx Neck: Trachea Midline Respiratory: Symmetrical Chest Expansion and Respiratory Effort, - - diffuse wheezing and ronchi, good air movement Cardiovascular: NL Sounds; No Murmurs; No JVD, RRR Abdominal: NL Sounds; No Tenderness; No Distention Extremities: No Edema Neurological: - - alert, cooperative Lines/Tubes/Other Access: Clean, Dry and Intact Peripheral IV Nutrition: Taking PO's Result Diagrams: 02/27/17 08:02 02/27/17 08:02 Assess/Plan/Problems-Billing Assessment: Mrs Blackman is a 76 yo F with PMH of COPD, Parkinson's, recent fall with fracture and recent pneumonia who presented to ED with leukocytosis, tachycardia , lactic acidosis, continued pain from recent sacral fracture, acute on chronic respiratory failure, found to have sepsis secondary to Serratia Marcescens PNA. - Patient Problems (1) Pneumonia Current Visit: Yes Status: Acute Priority: High Code(s): J18.9 - PNEUMONIA , UNSPECIFIED ORGANISM SNOMED Code(s): 611998074 Comment: - Serratia marcescens pneumonia, CT chest 02/18 with continued air bronchograms and consolidative changes. - Completed 7 days of ceftriaxone treatment, now off antibiotics - Speech pathology recommended nectar thick liquids, mechanically ground solids. - ENT consult appreciated - MOBILE HOME SERVICER reconsulted for shaker exercises. - Will repeat CXR as patient continues to have diffuse ronchi (2) Parkinson disease Current Visit: Yes Status: Acute Priority: Medium Code(s): G20 - PARKINSON 'S DISEASE SNOMED Code(s): 79018113 Comment: - Continue Sinemet. - ENT consult appreciated - Speech/swallow consult appreciated. (3) Closed right hip fracture Current Visit: No Status: Chronic Priority: Medium Code(s): S72.001A - FRACTURE OF UNSP PART OF NECK OF RIGHT FEMUR, INIT SNOMED Code(s): 218988142 Comment: - Will work to get PT to contiue, needs to increase mobility - Likely return to SNF in 1-2 days (4) COPD exacerbation Current Visit: Yes Status: Acute Priority: Medium Code(s): J44.1 - CHRONIC OBSTRUCTIVE PULMONARY DISEASE W (ACUTE) EXACERBATION SNOMED Code(s): 188025544670169 Comment: - Continue parenteral steroid and nebulizers. Status and Disposition: Inpatient, may return to SNF in 2-3 days
--- NOTE | 2017-02-27 17:20 | RAD ---
Indication: Follow-up pneumonia. Comparison: February 18, 2017 CT and February 16, 2017 chest radiograph. Technique: Sitting AP and lateral chest views. Report: Persistent bilateral airspace consolidation and coarse interstitial markings. Consolidation most prominent at the LEFT mid to lower lung zone. Grossly clear lung bases. Negative for pneumothorax. Mild cardiomegaly. Unremarkable central pulmonary vasculature and mediastinal contours accounting for AP technique and rightward rotation. IMPRESSION: No significant change in LEFT greater than RIGHT airspace consolidation superimposed on underlying probable chronic obstructive pulmonary disease.
[2017-02-27] MEDS: LORazepam TAB(*) 1 MG PO PRN (18:23)
[2017-02-27] MEDS: Mirtazapine TAB* 15 MG PO SCH (20:23)
[2017-02-27] MEDS: Montelukast Sodium TAB* 10 MG PO SCH (20:24)
[2017-02-27] MEDS: Lidocaine Patch REMOVE* 1 NOTE MISC PATCH OFF SCH (20:25)
[2017-02-28] MEDS: Albuterol/Ipratropium NEB.SOL* Albuterol 2.5 MG/Ipratropium 0.5 MG 3 ML INH SCH ×4 (01:13→19:29)
[2017-02-28] MEDS: HYDROmorphone INJ* 2 MG/ML CARPUJECT SYRINGE IV SLOW PU PRN (02:20)
[2017-02-28] MEDS: methylPREDNISolone SOD 40 MG* 1 ML VIAL IV SCH (02:20)
[2017-02-28] MEDS: oxyCODONE TAB* 5 MG TAB PO PRN ×4 (02:21→21:24)
[2017-02-28] MEDS: Heparin VIAL(*) 5000 UNITS/ML VIAL (FIVE THOUSAND) SUBCUT SCH ×3 (05:12→21:24)
[2017-02-28] MEDS: Acetaminophen TAB* 325 MG PO SCH ×3 (05:13→21:22)
[2017-02-28] MEDS: cloNIDine TAB* 0.1 MG PO SCH ×2 (06:20→16:37)
[2017-02-28] MEDS: Carbidopa/Levodop 25/100 MG TAB(*) PO SCH ×3 (06:20→21:23)
[2017-02-28] MEDS: fentaNYL Patch Check Q Shift 1 NOTE SCH ×2 (07:11→20:53)
[2017-02-28] MEDS: Mometasone/Formoter 200/5 MDI INH SCH ×2 (07:53→19:26)
[2017-02-28] MEDS: Sertraline* 100 MG TAB PO SCH ×2 (08:24→21:23)
[2017-02-28] MEDS: Cyanocobalamin TAB* 500 MCG PO SCH (08:24)
[2017-02-28] MEDS: Cholecalciferol TAB* 1000 UNITS PO SCH (08:24)
[2017-02-28] MEDS: Folic Acid TAB* 1 MG PO SCH (08:24)
[2017-02-28] MEDS: Losartan TAB* 25 MG PO SCH (08:25)
[2017-02-28] MEDS: Clotrimazole TROCHE* 10 MG TROCHE PO SCH ×5 (08:25→21:22)
[2017-02-28] MEDS: Lidocaine PATCH 5%* 1 PATCH TRANSDERM SCH (08:28)
--- NOTE | 2017-02-28 13:04 | PN ---
Subjective Date of Service: 02/28/17 Interval History: Patient states pain in coccyx and RT hip is better. She is willing to walk a few steps in room. Most recently at [facility], but wants to return home eventually. is in room. He appears to have memory issues, possibly not a severe as patient's. She is still coughing, wheezing. Family History: Unchanged from Admission Social History: Unchanged from Admission Past Medical History: Unchanged from Admission Objective Active Medications: Acetaminophen (Tylenol Tab*) 975 mg PO Q8HR [facility] Last Admin: 02/28/17 05:13 Dose: 975 mg Albuterol/Ipratropium (Duoneb (Albuterol 2.5 Mg/Ipratropium 0.5 Mg)) 1 neb INH Q2H PRN PRN Reason: SOB/WHEEZING Last Admin: 02/26/17 22:28 Dose: 1 neb Albuterol/Ipratropium (Duoneb (Albuterol 2.5 Mg/Ipratropium 0.5 Mg)) 1 neb INH [id number] AWAKE [facility] Last Admin: 02/28/17 07:52 Dose: 1 neb Carbidopa/Levodopa (Sinemet 25/100 Tab(*)) 1 tab PO 0700,1300,2000 [facility] Last Admin: 02/28/17 06:20 Dose: 1 tab Cholecalciferol (Vitamin D Tab*) 1,000 units PO DAILY [facility] Last Admin: 02/28/17 08:24 Dose: 1,000 units Clonidine HCl (Catapres Tab*) 0.1 mg PO 0700,1600 [facility] Last Admin: 02/28/17 06:20 Dose: 0.1 mg Clotrimazole (Mycelex Kinsey*) 10 mg PO QID [facility] Last Admin: 02/28/17 12:44 Dose: Not Given Cyanocobalamin (Vitamin B12 Tab*) 1,000 mcg PO DAILY [facility] Last Admin: 02/28/17 08:24 Dose: 1,000 mcg Diazepam (Valium Tab(*)) 2 mg PO Q6HR PRN PRN Reason: ANXIETY Last Admin: 02/24/17 11:57 Dose: 2 mg Fentanyl (Duragesic Patch 12 Mcg/Hr *) 12 mcg TRANSDERM Q72H [facility] Last Admin: 02/25/17 21:36 Dose: 12 mcg Folic Acid (Folvite Tab*) 1 mg PO DAILY [facility] Last Admin: 02/28/17 08:24 Dose: 1 mg Heparin Sodium (Porcine) (Heparin Vial(*)) 5,000 units SUBCUT Q8HR [facility] Last Admin: 02/28/17 05:12 Dose: 5,000 units Hydromorphone HCl (Dilaudid Inj*) 2 mg IV SLOW PU Q4H PRN PRN Reason: PAIN Last Admin: 02/28/17 02:20 Dose: 2 mg Ibuprofen (Motrin Tab*) 600 mg PO Q6H PRN PRN Reason: PAIN Last Admin: 02/21/17 02:34 Dose: 600 mg Lidocaine (Lidoderm 5% Patch*) 1 patch TRANSDERM DAILY [facility] Last Admin: 02/28/17 08:28 Dose: 1 patch Lorazepam (Ativan Tab(*)) 1 mg PO BEDTIME PRN PRN Reason: ANXIETY Last Admin: 02/27/17 18:23 Dose: 1 mg Losartan Potassium (Cozaar Tab*) 25 mg PO DAILY [facility] Last Admin: 02/28/17 08:25 Dose: 25 mg Magnesium Hydroxide (Milk Of Magnesia Liq*) 30 ml PO BEDTIME PRN PRN Reason: CONSTIPATION Methylprednisolone Sodium Succinate (Solu-Medrol 40 Mg) 40 mg IV Q12H [facility] Last Admin: 02/28/17 02:20 Dose: 40 mg Mirtazapine (Remeron Tab*) 7.5 mg PO BEDTIME [facility] Last Admin: 02/27/17 20:23 Dose: 7.5 mg Mometasone Furoate/Formoterol Fumar (Dulera 200/5 Mdi*) 2 puff INH BID [facility] Last Admin: 02/28/17 07:53 Dose: 2 puff Montelukast Sodium (Singulair Tab*) 10 mg PO BEDTIME [facility] Last Admin: 02/27/17 20:24 Dose: 10 mg Oxycodone HCl (Roxycodone Tab*) 10 mg PO Q4H PRN PRN Reason: PAIN - [facility] Last Admin: 02/28/17 08:25 Dose: 10 mg Polyethylene Glycol/Electrolytes (Miralax*) 17 gm PO DAILY PRN PRN Reason: CONSTIPATION Senna (Senokot Tab*) 2 tab PO DAILY PRN PRN Reason: CONSTIPATION Last Admin: 02/19/17 07:46 Dose: 2 tab Sertraline HCl (Zoloft*) 100 mg PO BID [facility] Last Admin: 02/28/17 08:24 Dose: 100 mg Vital Signs - 8 hr 02/28/17 02/28/17 02/28/17 07:33 08:00 08:25 Temperature 36.7 C Pulse Rate 87 Respiratory 20 18 20 Rate Blood Pressure 142/71 (mmHg) O2 Sat by Pulse 96 Oximetry Oxygen Devices in Use Now: Nasal Cannula Appearance: sitting in chair, no distress Eyes: - Ears/Nose/Mouth/Throat: Clear Oropharnyx Neck: NL Appearance and Movements; NL JVP Respiratory: - - rales at bases bilat, scattered wheezing Abdominal: NL Sounds; No Tenderness; No Distention Lymphatic: No Cervical Adenopathy Neurological: - - alert, answers questions appropriately, forgetful Lines/Tubes/Other Access: Clean, Dry and Intact Peripheral IV Result Diagrams: 02/27/17 08:02 02/27/17 08:02 Additional Lab and Data: Microbiology and Other Data: Diagnostic Imaging: Repeat CXR 02/27 shows persisting COPD and infiltrates Assess/Plan/Problems-Billing Assessment: Mrs Blackman is a 76 yo F with PMH of COPD, Parkinson's, recent fall with fracture and recent pneumonia who presented to ED with leukocytosis, tachycardia , lactic acidosis, continued pain from recent sacral fracture, acute on chronic respiratory failure, found to have sepsis secondary to Serratia Marcescens PNA. - Patient Problems (1) Pneumonia Current Visit: Yes Status: Acute Priority: High Code(s): J18.9 - PNEUMONIA , UNSPECIFIED ORGANISM SNOMED Code(s): 008646040 Comment: - Serratia marcescens pneumonia, CT chest 02/18 with continued air bronchograms and consolidative changes. - Completed 7 days of ceftriaxone treatment, now off antibiotics - Following recommendations nectar thick liquids, mechanically ground solids. (2) Parkinson disease Current Visit: Yes Status: Acute Priority: Medium Code(s): G20 - PARKINSON 'S DISEASE SNOMED Code(s): 90291389 Comment: - Continue Sinemet. - Speech/swallow consult appreciated. (3) Closed right hip fracture Current Visit: No Status: Chronic Priority: Medium Code(s): S72.001A - FRACTURE OF UNSP PART OF NECK OF RIGHT FEMUR, INIT SNOMED Code(s): 761915165 Comment: - Will work to get PT to contiue, needs to increase mobility - Likely return to SNF in 1-2 days (4) COPD exacerbation Current Visit: Yes Status: Chronic Priority: Medium Code(s): J44.1 - CHRONIC OBSTRUCTIVE PULMONARY DISEASE W (ACUTE) EXACERBATION SNOMED Code(s): 359833227419076 Comment: - Switch parenteral steroid to oral - Continue nebulizers prn (5) DVT prophylaxis Current Visit: Yes Status: Acute Code(s): VNX3840 - SNOMED Code(s): 300883825 Comment: - SQ heparin. Status and Disposition: Inpatient, may return to SNF in 2-3 days
[2017-02-28] MEDS: fentaNYL PATCH 12 MCG/HR TRANSDERM SCH (20:54)
[2017-02-28] MEDS: Mirtazapine TAB* 15 MG PO SCH (21:22)
[2017-02-28] MEDS: Lidocaine Patch REMOVE* 1 NOTE MISC PATCH OFF SCH (21:25)
[2017-02-28] MEDS: Montelukast Sodium TAB* 10 MG PO SCH (21:25)
[2017-02-28] MEDS: LORazepam TAB(*) 1 MG PO PRN (21:31)
[2017-02-28] MEDS: Diazepam TAB(*) 2 MG PO PRN (23:28)
[2017-03-01] MEDS: oxyCODONE TAB* 5 MG TAB PO PRN ×4 (03:43→23:14)
[2017-03-01] MEDS: Albuterol/Ipratropium NEB.SOL* Albuterol 2.5 MG/Ipratropium 0.5 MG 3 ML INH SCH ×4 (04:30→19:56)
[2017-03-01 06:37] LABS: Hematocrit 33 % (35-47); Hemoglobin 10.4 g/dl (12.0-16.0); Mean Corpuscular HGB Conc 32 g/dl (31-36); Mean Corpuscular Hemoglobin 26 pg (27-31); Mean Corpuscular Volume 81 fL (80-97); Mean Platelet Volume 7 um3 (7.4-10.4); Red Blood Count 4.06 10^6/ul (4.0-5.4); Red Cell Distribution Width 21 % (10.5-15); White Blood Count 15.8 10^3/ul (3.5-10.8)
[2017-03-01] MEDS: cloNIDine TAB* 0.1 MG PO SCH ×2 (06:44→17:29)
[2017-03-01] MEDS: Carbidopa/Levodop 25/100 MG TAB(*) PO SCH ×3 (06:44→23:12)
[2017-03-01] MEDS: Acetaminophen TAB* 325 MG PO SCH ×3 (06:44→23:11)
[2017-03-01] MEDS: Heparin VIAL(*) 5000 UNITS/ML VIAL (FIVE THOUSAND) SUBCUT SCH ×3 (06:45→23:16)
[2017-03-01 06:48] LABS: Add Diff/Slide Review? Slide Review Added; Comments Flag Yes
[2017-03-01] MEDS: Diazepam TAB(*) 2 MG PO PRN ×2 (06:48→15:13)
[2017-03-01 07:01] LABS: BUN/Creatinine Ratio 31.2 (8-20); C Reactive Protein 28.24 mg/L (< 5.00); Calcium 9.2 mg/dL (8.6-10.3); EGFR African American 93.5 (>60); EGFR Non-African American 72.7 (>60); Potassium 4.5 mmol/L (3.5-5.0)
[2017-03-01] MEDS: fentaNYL Patch Check Q Shift 1 NOTE SCH ×2 (07:22→19:15)
[2017-03-01] MEDS: Mometasone/Formoter 200/5 MDI INH SCH ×2 (07:35→19:54)
[2017-03-01 07:36] LABS: Immature Granulocytes 9 % (0-9); Metamyelocytes % 1 % (0-2); Myelocytes % 4 % (0-1); Neutrophil % 75 % (38-83); RBC Morphology Normal (Normal)
[2017-03-01] MEDS: Sertraline* 100 MG TAB PO SCH ×2 (09:20→23:13)
[2017-03-01] MEDS: Cholecalciferol TAB* 1000 UNITS PO SCH (09:20)
[2017-03-01] MEDS: predniSONE TAB* 10 MG PO SCH (09:21)
[2017-03-01] MEDS: Lidocaine PATCH 5%* 1 PATCH TRANSDERM SCH (09:21)
[2017-03-01] MEDS: Cyanocobalamin TAB* 500 MCG PO SCH (09:21)
[2017-03-01] MEDS: Losartan TAB* 25 MG PO SCH (09:21)
[2017-03-01] MEDS: Folic Acid TAB* 1 MG PO SCH (09:21)
[2017-03-01] MEDS: Clotrimazole TROCHE* 10 MG TROCHE PO SCH ×4 (09:22→23:15)
--- NOTE | 2017-03-01 09:56 | PN ---
Subjective Date of Service: 03/01/17 Interval History: HOSPITALIST PROGRESS NOTE Patient seen and examined at bedside. This is the 1st day she tells me she's feeling well. Sitting up in a chair in NAD, eating breakfast. Dyspnea is better today and she's not wheezing. Family History: Unchanged from Admission Social History: Unchanged from Admission Past Medical History: Unchanged from Admission Objective Active Medications: Acetaminophen (Tylenol Tab*) 975 mg PO Q8HR [facility] Last Admin: 03/01/17 06:44 Dose: 975 mg Albuterol/Ipratropium (Duoneb (Albuterol 2.5 Mg/Ipratropium 0.5 Mg)) 1 neb INH Q2H PRN PRN Reason: SOB/WHEEZING Last Admin: 02/26/17 22:28 Dose: 1 neb Albuterol/Ipratropium (Duoneb (Albuterol 2.5 Mg/Ipratropium 0.5 Mg)) 1 neb INH [id number] AWAKE [facility] Last Admin: 03/01/17 07:35 Dose: 1 neb Carbidopa/Levodopa (Sinemet 25/100 Tab(*)) 1 tab PO 0700,1300,2000 [facility] Last Admin: 03/01/17 06:44 Dose: 1 tab Cholecalciferol (Vitamin D Tab*) 1,000 units PO DAILY [facility] Last Admin: 03/01/17 09:20 Dose: 1,000 units Clonidine HCl (Catapres Tab*) 0.1 mg PO 0700,1600 [facility] Last Admin: 03/01/17 06:44 Dose: 0.1 mg Clotrimazole (Mycelex Kinsey*) 10 mg PO QID [facility] Last Admin: 03/01/17 09:22 Dose: 10 mg Cyanocobalamin (Vitamin B12 Tab*) 1,000 mcg PO DAILY [facility] Last Admin: 03/01/17 09:21 Dose: 1,000 mcg Diazepam (Valium Tab(*)) 2 mg PO Q6HR PRN PRN Reason: ANXIETY Last Admin: 03/01/17 06:48 Dose: 2 mg Fentanyl (Duragesic Patch 12 Mcg/Hr *) 12 mcg TRANSDERM Q72H [facility] Last Admin: 02/28/17 20:54 Dose: 12 mcg Folic Acid (Folvite Tab*) 1 mg PO DAILY [facility] Last Admin: 03/01/17 09:21 Dose: 1 mg Heparin Sodium (Porcine) (Heparin Vial(*)) 5,000 units SUBCUT Q8HR [facility] Last Admin: 03/01/17 06:45 Dose: 5,000 units Hydromorphone HCl (Dilaudid Inj*) 2 mg IV SLOW PU Q4H PRN PRN Reason: PAIN Last Admin: 02/28/17 02:20 Dose: 2 mg Ibuprofen (Motrin Tab*) 600 mg PO Q6H PRN PRN Reason: PAIN Last Admin: 02/21/17 02:34 Dose: 600 mg Lidocaine (Lidoderm 5% Patch*) 1 patch TRANSDERM DAILY [facility] Last Admin: 03/01/17 09:21 Dose: 1 patch Lorazepam (Ativan Tab(*)) 1 mg PO BEDTIME PRN PRN Reason: ANXIETY Last Admin: 02/28/17 21:31 Dose: 1 mg Losartan Potassium (Cozaar Tab*) 25 mg PO DAILY [facility] Last Admin: 03/01/17 09:21 Dose: 25 mg Magnesium Hydroxide (Milk Of Momperymichael Liq*) 30 ml PO BEDTIME PRN PRN Reason: CONSTIPATION Mirtazapine (Remeron Tab*) 7.5 mg PO BEDTIME [facility] Last Admin: 02/28/17 21:22 Dose: 7.5 mg Mometasone Furoate/Formoterol Fumar (Dulera 200/5 Mdi*) 2 puff INH BID [facility] Last Admin: 03/01/17 07:35 Dose: 2 puff Montelukast Sodium (Singulair Tab*) 10 mg PO BEDTIME [facility] Last Admin: 02/28/17 21:25 Dose: 10 mg Oxycodone HCl (Roxycodone Tab*) 10 mg PO Q4H PRN PRN Reason: PAIN - SEV[facility] Last Admin: 03/01/17 09:19 Dose: 10 mg Pharmacy Profile Note (Lidocaine Patch Remove*) 1 note PATCH OFF 2100 [facility] Last Admin: 02/28/17 21:25 Dose: 1 note Pharmacy Profile Note (Fentanyl Patch Check Q Shift) 0 note N/A 0700,1900 [facility] Last Admin: 03/01/17 07:22 Dose: 1 note Polyethylene Glycol/Electrolytes (Miralax*) 17 gm PO DAILY PRN PRN Reason: CONSTIPATION Prednisone (Deltasone Tab*) 30 mg PO DAILY [facility] Last Admin: 03/01/17 09:21 Dose: 30 mg Senna (Senokot Tab*) 2 tab PO DAILY PRN PRN Reason: CONSTIPATION Last Admin: 02/19/17 07:46 Dose: 2 tab Sertraline HCl (Zoloft*) 100 mg PO BID [facility] Last Admin: 03/01/17 09:20 Dose: 100 mg Vital Signs - 8 hr 03/01/17 03/01/17 03/01/17 03:43 06:48 07:18 Temperature 97.8 F 98.0 F Pulse Rate 86 87 Respiratory 18 20 19 Rate Blood Pressure 138/77 109/55 (mmHg) O2 Sat by Pulse 99 98 Oximetry Oxygen Devices in Use Now: Nasal Cannula - 3 liters Appearance: Elderly lady sitting up in a chair in NAD. Eyes: No Scleral Icterus Ears/Nose/Mouth/Throat: Mucous Membranes Moist Neck: Trachea Midline Respiratory: Symmetrical Chest Expansion and Respiratory Effort, - - BS+ bilaterally decreased with no added sounds Cardiovascular: RRR - Normal S1 and S2 Abdominal: NL Sounds; No Tenderness; No Distention Neurological: Alert and Oriented x 3, - - deconditioned Result Diagrams: 03/01/17 06:22 03/01/17 06:22 Assess/Plan/Problems-Billing Assessment: Mrs Blackman is a 76 yo F with PMH of COPD, Parkinson's, recent fall with fracture and recent pneumonia who presented to ED with leukocytosis, tachycardia , lactic acidosis, continued pain from recent sacral fracture, acute on chronic respiratory failure, found to have sepsis secondary to Serratia Marcescens PNA. - Patient Problems (1) Leukocytosis Comment: - Suspect associated with steroids. - Remains afebrile with stable VS off antibiotics. (2) Acute on chronic respiratory failure with hypoxemia Comment: - Secondary to Serratia pneumonia. (3) Pneumonia Comment: - Serratia marcescens pneumonia, CT chest 02/18 with continued air bronchograms and consolidative changes. - Completed 7 days of ceftriaxone treatment, now off antibiotics. - Speech pathology recommended modified barium swallow. (4) HTN (hypertension) Comment: - Controlled. - Continue clonidine and losartan. (5) Parkinson disease Comment: - Continue Sinemet. - Speech/swallow consult appreciated. (6) Sacral insufficiency fracture with routine healing Comment: - WBAT. - Continue pain management. - Continue PT as tolerated. (7) DVT prophylaxis Comment: - SQ heparin. (8) DNR (do not resuscitate) Status and Disposition: Inpatient. Anticipate d/c to [facility] in AM depending on Barium swallow result.
--- NOTE | 2017-03-01 11:00 | RAD ---
INDICATION: Dysphasia. Aspiration. COMPARISON: None FINDINGS: 80 seconds of fluoroscopy were provided for the speech pathology department. Fluoroscopic spot imaging of the swelling mechanism was performed and showed aspiration of nectar thick liquids. No other aspiration was documented. Please refer to full speech pathology report. CPT II Codes: 5714J7O (fluoro time doc)
[2017-03-01] MEDS: Albuterol/Ipratropium NEB.SOL* Albuterol 2.5 MG/Ipratropium 0.5 MG 3 ML INH PRN (15:19)
[2017-03-01] MEDS: LORazepam TAB(*) 1 MG PO PRN (23:12)
[2017-03-01] MEDS: Montelukast Sodium TAB* 10 MG PO SCH (23:13)
[2017-03-01] MEDS: Mirtazapine TAB* 15 MG PO SCH (23:14)
[2017-03-01] MEDS: Lidocaine Patch REMOVE* 1 NOTE MISC PATCH OFF SCH (23:18)
[2017-03-02] MEDS: Albuterol/Ipratropium NEB.SOL* Albuterol 2.5 MG/Ipratropium 0.5 MG 3 ML INH SCH ×3 (02:44→12:02)
[2017-03-02] MEDS: Carbidopa/Levodop 25/100 MG TAB(*) PO SCH ×2 (06:18→12:02)
[2017-03-02] MEDS: cloNIDine TAB* 0.1 MG PO SCH (06:18)
[2017-03-02] MEDS: Acetaminophen TAB* 325 MG PO SCH (06:19)
[2017-03-02] MEDS: Heparin VIAL(*) 5000 UNITS/ML VIAL (FIVE THOUSAND) SUBCUT SCH (06:20)
[2017-03-02] MEDS: fentaNYL Patch Check Q Shift 1 NOTE SCH (06:20)
[2017-03-02] MEDS: Mometasone/Formoter 200/5 MDI INH SCH (07:32)
[2017-03-02] MEDS: Cholecalciferol TAB* 1000 UNITS PO SCH (07:43)
[2017-03-02] MEDS: Losartan TAB* 25 MG PO SCH (07:43)
[2017-03-02] MEDS: Folic Acid TAB* 1 MG PO SCH (07:43)
[2017-03-02] MEDS: Cyanocobalamin TAB* 500 MCG PO SCH (07:43)
[2017-03-02] MEDS: Lidocaine PATCH 5%* 1 PATCH TRANSDERM SCH (07:43)
[2017-03-02] MEDS: Sertraline* 100 MG TAB PO SCH (07:44)
[2017-03-02] MEDS: predniSONE TAB* 10 MG PO SCH (07:44)
[2017-03-02] MEDS: Clotrimazole TROCHE* 10 MG TROCHE PO SCH ×2 (07:44→12:02)
--- NOTE | 2017-03-02 09:49 | DS ---
CC: Dr. Self, [facility] * DISCHARGE SUMMARY: DATE OF ADMISSION: 02/16/17 DATE OF DISCHARGE: 03/02/17 Physician following the patient at [facility], Dr. Self. DISCHARGE DIAGNOSES: 1. Acute on chronic hypoxemic respiratory failure. 2. Recurrent aspiration pneumonia/Serratia marcescens pneumonia. 3. Parkinson's disease with severe dysphagia. 4. Chronic obstructive pulmonary disease exacerbation secondary to the above. SECONDARY DIAGNOSES: 1. Parkinson's disease. 2. Sacral insufficiency fracture status post fall. 3. Chronic obstructive pulmonary disease. 4. Hypertension. 5. Chronic respiratory failure. MEDICATION LIST: Extensive, as follows: 1. Acetaminophen 1000 mg p.o. q.8 hours. 2. DuoNeb nebulized q.6 hours while awake and q.4 hours p.r.n. shortness of breath and wheezing. 3. Benzocaine/menthol lozenge 1 q.4 hours p.r.n. sore throat. 4. Sinemet 25/100 mg one tablet p.o. at 7 a.m., 1 p.m., 8 p.m. 5. Cholecalciferol 1000 units p.o. daily. 6. Clonidine 0.1 mg p.o. at 7 a.m. and 4 p.m. 7. Cyanocobalamin 1000 mcg p.o. daily. 8. Diazepam 2 mg p.o. q.6 hours p.r.n. anxiety. 9. Fentanyl patch 12 mcg topical q.72 hours. 10. Advair Diskus at 100/50 one puff inhaled b.i.d. 11. Folic acid 1 mg p.o. daily. 12. Furosemide 40 mg p.o. daily. 13. Glycerine suppository 1 per rectum q.24 hours. 14. Ibuprofen 600 mg p.o. q.6 hours p.r.n. pain. 15. Atrovent inhaler 2 puffs inhaled at 7 a.m., 1 p.m., 8 p.m. 16. Lidocaine patch 5% topical daily. 17. Lorazepam 1 mg p.o. at bedtime as needed for agitation and anxiety. 18. Losartan 25 mg p.o. daily. 19. Milk of magnesia 30 mL p.o. at bedtime as needed for constipation if no bowel movement in 3 days. 20. Mirtazapine 7.5 mg p.o. at bedtime. 21. Montelukast 10 mg p.o. at bedtime. 22. Oxycodone 5 mg p.o. q.4 hours p.r.n. pain [id number]. 23. Oxycodone 10 mg p.o. q.4 hours p.r.n. severe pain. 24. MiraLAX 17 g p.o. daily as needed for constipation. 25. Potassium chloride 20 mEq p.o. daily. 26. Prednisone taper as follows: 20 mg p.o. daily for 2 days; then 20 mg for 3 days; 10 mg for 3 days; 5 mg for 3 days and stop. 27. Pyridoxine 25 mg p.o. daily. 28. Senna 2 tablets p.o. daily as needed for constipation. 29. Zoloft 100 mg p.o. b.i.d. HOSPITAL COURSE: Mrs. Blackman is a 76-year-old female with a past medical history as stated above with multiple recent falls that was initially admitting November 2016 to [facility], status post ORIF of her right hip performed at [facility] on 11/02/16. She had a fall at that facility, was transported to [facility] again on 12/02/16, and apparently she declined to have any surgical procedures and was treated conservatively and stayed at [facility] until 12/14/16. After the fall, the patient presented to the emergency room, found to have a right sacral fracture that was deemed to be nonsurgical and recommendation by Ortho was weightbearing as tolerated with a walker and to expect a 6 to 8 weeks' interval for healing. On 02/16/17, the patient presented to the emergency room once again with complaints of right-sided hip and sacral pain, but she was also tachycardic, tachypneic and she was admitted for further evaluation. For more details of our presentation, I refer you to her history and physical. Chest x-ray showed moderate vascular congestion. Hip and pelvis x-rays showed status post right hip arthropathy with no evidence of hardware failure. Chest CT showed chronic airspace disease with partial consolidation of the right middle and left lower lobes. The patient's sputum culture grew Serratia and she was treated with ceftriaxone. She was seen in consultation by Pulmonology (Dr. Escalera) and Infectious Disease (Dr. Bird). Dr. Escalera's impression was the patient had chronic respiratory failure on O2 supplementation, COPD with recurrent admissions for pneumonia. She suspected aspiration pneumonia given her underlying conditions and less likely endobronchial obstruction. She recommended to continue antibiotics, prednisone taper, and to pursue speech and swallow evaluation. She felt the patient was high risk for bronchoscopy. Dr. Bird recommended a 7-day course of ceftriaxone as well as corticosteroids as already done and he would like her to have a followup CT scan in a month. The patient was seen by Speech Therapy and found to have swallowing dysfunction and recommendation was for pureed texture, honey thick liquids. She was also seen in consultation by ENT (Dr. Brian) and his assessment was that the patient had progressive dysphagia and weakened voice secondary to her Parkinson' s disease. It is very common for Parkinson's disease to cause dysphagia and often times aspiration pneumonia is the end event in this disease process. He recommended speech pathology do Shaker exercises with her to attempt a swallowing strengthening. After every swallow she should cough and then swallow again to try and prevent aspiration and he did not have any further recommendations. 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 The patient underwent a video fluoroscopic swallow evaluation and she presented with severe oropharyngeal dysphagia with silent aspiration of nectar thickened liquids, so the final recommendation was for a moist mechanical ground solids, pureed fruits and vegetables and honey thickened liquids. They also recommended the patient sit upright while eating, small sips and bites, extra swallows, alternate liquids and solids and to keep her up for 30 minutes after eating. The patient will benefit with continuation of speech pathology exercises as outpatient. IMPRESSION: Impression is the patient has had recurrent episodes of aspiration pneumonia. This appears to be her 4th episodes at this point and beyond diet modifications and exercises as described above, there is not much else that can be done. This episode appears to be resolved at this time, but she remains at a very high risk for further episodes of aspiration. The patient is a do-not -resuscitate, do not intubate and the plan is for her to be seen by palliative care as outpatient and if recommendation continues to decline, consideration should be given to hospice evaluation. The patient is medically stable to be discharged back to [facility] today. PHYSICAL EXAMINATION: Vital Signs: Temperature is 97.9, heart rate is 105, respiratory rate is 18, oxygen saturation 96% on 3 L nasal cannula, blood pressure is 114/51. General: The patient is an elderly lady sitting up in the chair in no acute distress. CVS: Normal S1 and S2. Regular rate and rhythm. Chest: Breath sounds bilaterally decreased with scattered wheeze. Abdomen: Soft. Bowel sounds are present. Neuro: She is alert, awake, and oriented x2, self and place; able to move all 4 extremities, but deconditioned. DIET: Heart healthy diet with moist mechanical ground solids, fruits and vegetables, honey thick liquids. ACTIVITY: Continue speech, physical therapy, and occupational therapy as tolerated. DISPOSITION: [facility]. STATUS WHILE IN THE HOSPITAL: Inpatient. Please keep in mind that the patient's respiratory status is very tenuous, but I believe this is the best we would be able to obtain considering all her comorbidities. She has minimal wheezing. She appears to be comfortable and she is on her usual 3 L of oxygen, but as stated above, she remains at a very high risk for aspiration and further decompensation. Arrangements will be made for palliative care evaluation at [facility], but I believe hospice should be aggressively pursued also. This is a summarized version of this patient's prolonged and complex hospital stay. If you need more information, please feel free to call me at [phone] or please obtain the full medical records. TIME SPENT: Approximately 50 minutes was spent to complete this discharge. [id number]/CPS #: [id number] MTDD
[2017-03-02 12:37] VITALS: BP 122/74
== END 2017-03-02 14:45 | DRG 871 ==
LOC: ED 14:22 → MED 18:07
PROVIDERS: ADMIT Internal Medicine; ATTEND Internal Medicine
PROC: 0CJS8ZZ Inspection of Larynx, Via Natural or Artificial Opening Endoscopic (ICD-10-PCS; principal; 2017-02-25)
DX: A41.9 Sepsis, unspecified organism (principal); J15.6 Pneumonia due to other Gram-negative bacteria; J96.21 Acute and chronic respiratory failure with hypoxia; J69.0 Pneumonitis due to inhalation of food and vomit; J96.12 Chronic respiratory failure with hypercapnia; R13.12 Dysphagia, oropharyngeal phase; G20 Parkinson's disease; F02.80 Dementia in other diseases classified elsewhere, unspecified severity, without behavioral disturbance, psychotic disturbance, mood disturbance, and anxiety; J44.0 Chronic obstructive pulmonary disease with (acute) lower respiratory infection; J44.1 Chronic obstructive pulmonary disease with (acute) exacerbation; Z96.641 Presence of right artificial hip joint; Z96.653 Presence of artificial knee joint, bilateral; R40.2412 Glasgow coma scale score 13-15, at arrival to emergency department; F41.9 Anxiety disorder, unspecified; I10 Essential (primary) hypertension; G89.29 Other chronic pain; K59.00 Constipation, unspecified; Z66 Do not resuscitate; M19.90 Unspecified osteoarthritis, unspecified site; Z82.49 Family history of ischemic heart disease and other diseases of the circulatory system; S72.001S Fracture of unspecified part of neck of right femur, sequela; Z87.891 Personal history of nicotine dependence; Z56.0 Unemployment, unspecified; Z88.5 Allergy status to narcotic agent; Z88.8 Allergy status to other drugs, medicaments and biological substances; Z91.041 Radiographic dye allergy status
CPT/HCPCS: 36415; 36600; 71010; 71020; 71250; 74230; 80048; 80053; 82550; 82803; 83605; 83735; 83880; 84484; 85025; 85379; 86140; 87040; 87070; 87077; 87186; 87205; 87502; 87641; 93005; 93306; 94640; 94760; A9270-GY; J0696; J1170; J1644; J1940; J2185; J2405; J2543; J2920; J2930; J3010; J7512